=== PATIENT | female | born 1925 | race Caucasian/White ===

== ENCOUNTER 2016-12-14 09:35 | Inpatient (IN) | payer MEDICARE, OTHER ==
[~2016-12-14] VITALS: Ht 165.1 cm; Wt 55.0 kg
[2016-12-14] VITALS (8 sets, daily range): BP systolic 129–162; BP diastolic 57–72; PULSE 71–85; RESP 16–20; TEMP 96.5; Ht 165.1 cm; Wt 55.0 kg
[2016-12-14 10:59] LABS: HEMATOCRIT 21.9 % (37.0-47.0); HEMOGLOBIN 7.2 g/dl (12.0-16.0); MEAN CORPUSCULAR HEMOGLOBIN 26.2 pg (29.0-33.0); MEAN CORPUSCULAR HGB CONC 32.8 g/dl (32.0-37.0); MEAN CORPUSCULAR VOLUME 80.1 fl (82.0-101.0); MEAN PLATELET VOLUME 6.8 fl (7.4-10.4); PLATELET COUNT 622 10^3/UL (140-440); RED BLOOD COUNT 2.74 10^6/ul (4.20-5.40); RED CELL DISTRIBUTION WIDTH 24.9 % (11.5-14.5); UNCORRECTED WBC 19.5 10^3/ul (4.8-10.8); WHITE BLOOD COUNT 19.5 10^3/ul (4.8-10.8)
[2016-12-14 11:05] LABS: CONDITION 1; SUSPECT 1
[2016-12-14 11:06] LABS: POTASSIUM 4.3 mmol/L (3.5-5.1)
[2016-12-14 11:08] LABS: CREATININE 2.24 mg/dl (0.44-1.00)
[2016-12-14 11:09] LABS: URIC ACID 4.2 mg/dl (3.1-7.9)
[2016-12-14 11:10] LABS: CALCIUM 9.6 mg/dl (8.4-10.2)
[2016-12-14 11:16] LABS: INR 0.95; PROTIME 12.7 Sec (12.2-14.2)
[2016-12-14 11:17] LABS: PARTIAL THROMBOPLASTIN TIME 33.7 Sec (25.0-35.0)
[2016-12-14 11:20] LABS: TROPONIN-I 0.015 ng/ml (0.00-0.12)
[2016-12-14 11:27] LABS: BASOPHIL # 0.2 10^3/ul (0.0-0.1); EOSINOPHILS # 4.9 10^3/ul (0.0-0.5); LYMPHOCYTES # 2.9 10^3/ul (0.8-2.9); MONOCYTE # 1.6 10^3/ul (0.3-0.9); NEUTROPHIL # 9.4 10^3/ul (1.6-7.5); PLATELET ESTIMATE PLT APPEAR INCREASED
[2016-12-14] MEDS ORDERED: SODIUM CHLORIDE 0.9% 1L BAG IV* STA (12:20)
[2016-12-14] MEDS ORDERED: CEFTRIAXONE 1 GM/50 ML (PMX) 50 ML IVPB ONE (12:30)
--- NOTE | 2016-12-14 12:34 | RADRPT ---
PROCEDURE: XR Chest. CLINICAL INDICATION: Chest pain. TECHNIQUE: Single frontal view of the chest was obtained. COMPARISON: None. FINDINGS: The cardiac silhouette appears enlarged. There is calcification and unfolding of the thoracic aorta . Pulmonary vasculature appears normal. Minimal coarse markings in the medial lung bases bilateral ly. There is a retrocardiac hiatal hernia present. The costophrenic angles are well defined. Ther e are senescent changes in the axial skeleton. IMPRESSION: 1. Cardiomegaly and aortic atherosclerosis. 2. Bibasilar coarse markings which may represent subsegmental atelectasis. 3. Retrocardiac hiatal hernia. RPTAT: [facility] Physician Dk Date Time Electronically viewed and signed by Deepak Horta Physician on 12/14/2016 12:34 ART/
[2016-12-14 12:47] LABS: ADD UMIC YES; URINE BILIRUBIN (Dip) NEGATIVE (NEGATIVE); URINE BLOOD (Dip) 3+ (NEGATIVE); URINE COLOR DK. BROWN (YELLOW); URINE GLUCOSE (Dip) NEGATIVE (NEGATIVE); URINE KETONES (Dip) NEGATIVE (NEGATIVE); URINE LEUKOCYTE ESTERASE (Dip) 2+ (NEGATIVE); URINE NITRITE (Dip) NEGATIVE (NEGATIVE); URINE TOTAL PROTEIN (Dip) 1+ (NEGATIVE); URINE UROBILINOGEN (Dip) 0.2 E.U./dL (0.1-1.0)
[2016-12-14 13:08] LABS: BACTERIA,URINE FEW
[2016-12-14] MEDS ORDERED: ALLO300T2 PO (13:30)
[2016-12-14] MEDS ORDERED: MULTI PO (13:32)
[2016-12-14] MEDS ORDERED: CALC600T11 PO (13:33)
[2016-12-14] MEDS ORDERED: OMEP20CA16 PO (13:39)
[2016-12-14] MEDS ORDERED: CHOL100062 PO (13:39)
[2016-12-14] MEDS ORDERED: ASCO500C7 PO (13:40)
[2016-12-14] MEDS ORDERED: LIDO5OI35 TP (13:42)
[2016-12-14] MEDS ORDERED: SERT50TA PO (13:42)
[2016-12-14] MEDS ORDERED: MAGN400O4 PO (13:43)
[2016-12-14] MEDS ORDERED: SOD CHLORIDE 0.9% 1,000 ML IV SCH (13:46)
[2016-12-14] MEDS ORDERED: VERA360C6 PO (13:49)
[2016-12-14] MEDS ORDERED: SOD CHLORIDE 0.9% 250 ML IV ONE (13:49)
[2016-12-14] MEDS ORDERED: VALS40TA2 PO (13:49)
[2016-12-14] MEDS ORDERED: FURO20TA3 PO (13:50)
[2016-12-14] MEDS ORDERED: ONDANSETRON 4 MG INJ IV PRN (14:00)
[2016-12-14] MEDS ORDERED: ACETAMINOPHEN 325 MG TAB PO PRN ×2 (14:00→18:30)
--- NOTE | 2016-12-14 14:10 | ERA ---
ER Documentation Chief Complaint Date/Time DATE: 12/14/16 TIME: 14:07 Chief Complaint SWELLING BOTH LOWER AND UPPER EXTREMITIES; SOB HPI This is an 89-year-old female who was sent in by her primary care physician for evaluation of low hemoglobin, mild weakness and shortness of breath, and generalized malaise for the past 4 days. The patient is unable to give a history secondary to her clinical condition. History is obtained from the patient's caregiver was at bedside. ROS All systems reviewed and are negative except as per history of present illness. Medications Home Meds Reported Medications Furosemide* (Furosemide*) 20 Mg Tablet, 20 MG PO DAILY, #60 TAB 12/14/16 Verapamil Hcl* (Verelan*) 360 Mg Cap24h.pel, 360 MG PO DAILY, CAP 12/14/16 Valsartan* (Diovan*) 40 Mg Tablet, 40 MG PO DAILY, TAB HOLD FOR SBP EQUAL OR LESS THAN 110 12/14/16 Magnesium Hydroxide* (Milk Of Magnesia*) 400 Mg/5 Ml Oral.susp, 30 ML PO Q24H Y for CONSTIPATION, ML 12/14/16 Sertraline Hcl* (Zoloft*) 50 Mg Tablet, 50 MG PO DAILY, #30 TAB 12/14/16 Lidocaine (LIDOCAINE) 35.44 Gm Oint...g., 1 APPLIC TP BID, #1 TUB 12/14/16 Ascorbic Acid* (Vitamin C*) 500 Mg Capsule.sa, 500 MG PO DAILY, CAP 12/14/16 Omeprazole* (Omeprazole*) 20 Mg Capsule.dr, 20 MG PO DAILY, #30 CAP 12/14/16 Cholecalciferol* (Vitamin D3*) 1,000 Unit Tablet, 2000 UNIT PO DAILY, TAB 12/14/16 Calcium Carbonate* (Calcium Carbonate*) 600 MG Ca Tab, 600 MG PO TID, TAB 12/14/16 Multivitamins* (Theragran*) 1 Tab Tab, 1 TAB PO DAILY, TAB 12/14/16 Allopurinol* (Allopurinol*) 300 Mg Tablet, 300 MG PO DAILY, TAB 12/14/16 Allergies Allergies: Coded Allergies: No Known Allergy (Unverified , 12/14/16) PMhx/Soc History of Surgery: Yes (L knee) Anesthesia Reaction: No Hx Neurological Disorder: Yes (alzhimer's ) Hx Cardiac Disorders: Yes (htn) Hx Psychiatric Problems: Yes (depression) Hx Miscellaneous Medical Probl: Yes (gout) Hx Alcohol Use: No Hx Substance Use: No Hx Tobacco Use: No Smoking Status: Unknown if ever smoked Physical Exam Vitals Vital Signs Date Time Temp Pulse Resp B/P Pulse Ox O2 Delivery O2 Flow Rate FiO2 12/14/16 10:59 Nasal Cannula 2.0 12/14/16 10:59 Nasal Cannula 2 12/14/16 09:47 97.5 69 25 128/77 99 Physical Exam INITIAL VITAL SIGNS: Reviewed by me GENERAL: The patient is well developed and appropriate for usual state of health in no apparent distress HEENT: Dry mucous members, pupils equal, round, and reactive to light. EOMI. There is no scleral icterus. NECK: C-spine is soft and supple, there is no meningismus. There is no cervical lymphadenopathy. LUNGS: Clear to auscultation bilaterally. There are no rales, wheezes or rhonchi. HEART: Regular rate and rhythm, no murmurs, clicks, rubs or gallops. ABDOMEN: Soft, non-tender, non-distended. There are bowel sounds in all four quadrants. No rebound or guarding. EXTREMITIES: 1+ pitting edema in the bilateral lower extremities no focal swelling or erythema. NEUROLOGICAL: Patient is alert and oriented to person only SKIN: There is no apparent rash or petechiae. HEME/LYMPHATIC: There is no evidence of excessive bruising or lymphedema. PSYCHIATRIC: The patient does not appear anxious or depressed. Result Diagram: 12/14/16 1045 12/14/16 1045 Results 24 hrs Laboratory Tests Test 12/14/16 10:45 12/14/16 12:15 12/14/16 12:30 Activated Partial Thromboplast Time 33.7Sec Anion Gap 17 B-Type Natriuretic Peptide 1820PG/ML Band Neutrophils % 3.0% Basophils # 0.210^3/ul Basophils % 1.0% Blood Morphology Comment Blood Urea Nitrogen 72mg/dl Calcium Level 9.6mg/dl Carbon Dioxide Level 22mmol/L Chloride Level 108mmol/L Creatinine 2.24mg/dl Differential Comment MANUAL DIFF Eosinophils # 4.910^3/ul Eosinophils % 25.0% Glucose Level 111mg/dl Hematocrit 21.9% Hemoglobin 7.2g/dl INR International Normalized Ratio 0.95 Lymphocytes # 2.910^3/ul Lymphocytes % 15.0% Mean Corpuscular Hemoglobin 26.2pg Mean Corpuscular Hemoglobin Concent 32.8g/dl Mean Corpuscular Volume 80.1fl Mean Platelet Volume 6.8fl Monocytes # 1.610^3/ul Monocytes % 8.0% Neutrophils # 9.410^3/ul Neutrophils % 48.0% Nucleated Red Blood Cells # 10^3/ul Nucleated Red Blood Cells % /100WBC Platelet Count 77002^3/UL Platelet Estimate PLT APPEAR INCREASED Potassium Level 4.3mmol/L Prothrombin Time 12.7Sec Prothrombin Time Ratio 1.0 Red Blood Count 2.7410^6/ul Red Cell Distribution Width 24.9% Sodium Level 143mmol/L Troponin I 0.015ng/ml Uric Acid 4.2mg/dl White Blood Count 19.510^3/ul Urine Bacteria FEW Urine Bilirubin NEGATIVE Urine Clarity CLOUDY Urine Color DK. BROWN Urine Epithelial Cells FEW Urine Glucose NEGATIVE% Urine Hemoglobin 3+ Urine Ketones NEGATIVE Urine Leukocyte Esterase 2+ Urine Microscopic RBC 2-5/HPF Urine Microscopic WBC >200/HPF Urine Nitrite NEGATIVE Urine Specific [place] 1.015 Urine Total Protein 1+ Urine Urobilinogen 0.2 E.U./dL Urine pH 6.0 Lactic Acid Level 0.8mmol/L Current Medications Medications (Trade) Dose Ordered Sig/Pratibha Route PRN Reason Start Time Stop Time Status Last Admin Dose Admin Sodium Chloride 1710 ml 1,710 ml BOLUS OVER 2 HOURS STAT IV* 12/14/16 12:20 12/14/16 12:23 DC 12/14/16 12:46 Ceftriaxone Sodium 50 ml @ 100 mls/hr ONCE ONCE IVPB 12/14/16 12:30 12/14/16 12:59 DC 12/14/16 12:46 Sodium Chloride (NS) 1,000 ml @ 80 mls/hr [id number] IV 12/14/16 13:46 12/15/16 02:15 Ondansetron HCl (Zofran Inj) 4 mg ER BRIDGE PRN IV NAUSEA AND/OR VOMITING 12/14/16 14:00 12/15/16 13:59 Acetaminophen 650 mg 650 mg ER BRIDGE PRN PO MILD PAIN/FEVER 12/14/16 14:00 12/15/16 13:59 Sodium Chloride (NS) 250 ml @ 0 mls/hr Q0M ONCE IV 12/14/16 13:49 12/14/16 13:51 DC Procedures/MDM EKG: Rate/Rhythm: [Normal Sinus Rhythm] QRS, ST, T-waves: [No changes consistent w/ acute ischemia] Impression: [No evidence of ischemia or arrhythmia] Chest X-ray 1V Interpreted by me: Soft Tissue: No acute abnormalities Bones: No acute abnormalities Mediastinum/Cardiac Silhouette/Lungs: [No acute abnormalities] This 89-year-old female presents to the ER for evaluation of generalized weakness, and malaise. The patient did have a low hemoglobin patient's primary care physician's office. This patient does have a hemoglobin of 7.2, she was also found to have leukocytosis. The patient does have urinary tract infection given her symptoms she does meet sepsis criteria. The patient had blood and urine cultures drawn. Rocephin given. 30 cc/kg of IV normal saline given. I spoken to her primary care physician, Dr. Coley who would like this patient transfused and admitted. This patient was mildly tachycardic so she will be placed on the telemetry floor for evaluation of sepsis and shortness of breath. Critical Care: Excluding all billable procedures Time: 39 minutes Treatments/Evaluations: Close monitoring and treatment of unstable vital signs, cardiorespiratory, and neurologic status, while maintaining tight balance of fluid, respiratory, and cardiac interventions. Departure Diagnosis: Primary Impression: Sepsis Additional Impressions: Renal insufficiency Microcytic anemia Condition: Fair DAMASO ROJAS DO Dec 14, 2016 14:10
[2016-12-14] MEDS ORDERED: MAGNESIUM HYDROXIDE 30ML CUP PO PRN (16:30)
[2016-12-14] MEDS: DEXTROSE 5%-0.45% NACL 1,000 ML IV SCH (16:30)
--- NOTE | 2016-12-14 16:34 | HP ---
Date/Time of Note Date/Time of Note DATE: 12/14/16 TIME: 16:16 Assessment/Plan VTE Prophylaxis VTE Prophylaxis Intervention: SCD's Lines/Catheters IV Catheter Type (from Nrsg): Peripheral IV Assessment/Plan Chief Complaint/Hosp Course Urosepsis Dehydration Prerenal azothemia HTN gouty arthritis CAD/ [place] Mild cognitive Impairment Decubitus Stage I Problems: Assessment/Plan 89 year old female with HTN, Mild cognitive impairment, gouty arthritis, contracture found in boarding home to have sevee anemia, dehydration and pre- renal azothemia with urosepsis. 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, and urosepis with dehydration PMH/Family/Social Past Medical History Medical History: congestive heart failure, hypertension, urinary tract infection Past Surgical History Past Surgical Hx: other (hys) Social History Alcohol Use: none Smoking Status: Unknown if ever smoked Drug Use: none Exam/Review of Systems Vital Signs Vitals Vital Signs Date Time Temp Pulse Resp B/P Pulse Ox O2 Delivery O2 Flow Rate FiO2 12/14/16 15:28 98.4 81 20 162/72 96 12/14/16 15:15 Nasal Cannula 2.0 Exam Constitutional: alert, frail Psych: No anxiety, No confusion, No depression, No nl mood/affect, No no complaints, No other, No suicidal Head: atraumatic, normocephalic Eyes: nl conjunctiva Respiratory: clear to auscultation Gastrointestinal: soft Musculoskeletal: muscle weakness, swelling Skin: nl turgor, other Labs Result Diagram: 12/14/16 1045 12/14/16 1045 Medications Medications Current Medications Sodium Chloride (NS) 1,000 ml @ 80 mls/hr [id number] IV ; Start 12/14/16 at 13:46 ; Stop 12/15/16 at 02:15 JANNETTE LAZCANO MD Dec 14, 2016 16:26
[2016-12-14 17:40] LABS: CK-MB 4.84 ng/ml (0.0-2.4)
[2016-12-14 17:43] LABS: TROPONIN-I 0.016 ng/ml (0.00-0.12)
[2016-12-14] MEDS: CALCIUM CARBONATE 1.25 GM TAB PO SCH ×2 (18:34→21:47)
[2016-12-14] MEDS: traMADol 50 MG TAB PO PRN (18:34)
[2016-12-14 23:19] LABS: CK-MB 4.23 ng/ml (0.0-2.4)
[2016-12-14 23:23] LABS: TROPONIN-I 0.017 ng/ml (0.00-0.12)
[2016-12-15] VITALS (12 sets, daily range): BP systolic 90–139; BP diastolic 51–65; PULSE 77–92; RESP 18–22
[2016-12-15] MEDS: PANTOPRAZOLE (EC) 40 MG TAB PO SCH (05:34)
[2016-12-15] MEDS: FUROSEMIDE 20 MG TAB PO SCH (05:34)
[2016-12-15] MEDS: DEXTROSE 5%-0.45% NACL 1,000 ML IV SCH ×3 (06:48→21:06)
[2016-12-15] MEDS: VERAPAMIL (SR) 180 MG TAB PO SCH (08:10)
[2016-12-15] MEDS: VALSARTAN 80 MG TAB PO SCH (08:11)
[2016-12-15] MEDS: SERTRALINE 50 MG TAB PO SCH (08:12)
[2016-12-15] MEDS: CALCIUM CARBONATE 1.25 GM TAB PO SCH ×3 (08:12→20:51)
[2016-12-15] MEDS: MULTIVITAMINS THERAPEUTIC TAB PO SCH (08:12)
[2016-12-15] MEDS: ALLOPURINOL 300 MG TAB PO SCH (08:12)
[2016-12-15] MEDS: CHOLECALCIFEROL 1,000 UNIT TAB PO SCH (08:12)
[2016-12-15] MEDS: ASCORBIC ACID 500 MG TAB PO SCH (08:12)
[2016-12-15] MEDS ORDERED: NON-FORMULARY/PATIENT OWN MED (Omeprazole* 20 MG) PO SCH (09:00)
[2016-12-15] MEDS ORDERED: VERAPAMIL 40 MG TAB PO ONE (09:00)
--- NOTE | 2016-12-15 13:57 | PN ---
Date/Time of Note Date/Time of Note DATE: 12/15/16 TIME: 13:47 Assessment/Plan VTE Prophylaxis VTE Prophylaxis Intervention: SCD's Lines/Catheters IV [facility]ter [facility] (from [facility]): Peripheral IV Urinary Cath still in place: No Assessment/Plan Chief Complaint/Hosp Course Urosepsis Dehydration Prerenal azothemia HTN gouty arthritis CAD/ [place] Mild cognitive Impairment Decubitus Stage I Problems: Subjective 24 Hr Interval Summary Free Text/Dictation 89year old female HTN, Gouty arthritis, MCI, decubitus stage I,Aortic Sclerosis , Diastolic Dysfunction grade II, contractures present with urosepis, dehyration and with anemia. Patient was hydrated and trasfused 2 Units PRBC. Urine shows gram + cocci and gram Negative with pending sensitivities Constitutional: chills, diaphoresis, disoriented, febrile, improved (Better skin turgor), no complaints, other, poor po, requiring IVF, requiring O2 Exam/Review of Systems Vital Signs Vitals Vital Signs Date Time Temp Pulse Resp B/P Pulse Ox O2 Delivery O2 Flow Rate FiO2 12/15/16 13:16 2.0 12/15/16 12:14 86 12/15/16 11:17 98.0 18 97/52 97 12/15/16 08:00 Nasal Cannula Intake and Output 12/14/16 12/14/16 12/15/16 15:00 23:00 07:00 Intake Total 1400 ml Balance 1400 ml Results Result Diagram: 12/14/16 1045 12/14/16 1045 Results 24 hrs Laboratory Tests Test 12/14/16 14:25 12/14/16 15:59 12/14/16 16:50 12/14/16 22:48 Lactic Acid Level 0.7 0.6 Bedside Glucose 98 Creatine Kinase 23 26 Creatine Kinase Index 21.0 16.3 Creatinine Kinase MB (Mass) 4.84 H 4.23 H Troponin I 0.016 0.017 Medications Medications Current Medications Dextrose/Sodium Chloride (D5-1/2ns) 1,000 ml @ 70 mls/hr [id number] IV Last administered on 12/14/16 16:30; Admin Dose 70 MLS/HR; Start 12/14/16 at 16:30 Allopurinol (Zyloprim) 300 mg DAILY PO Last administered on 12/15/16 08:12; Admin Dose 300 MG; Start 12/15/16 at 09:00 Ascorbic Acid (Vitamin C) 500 mg DAILY PO Last administered on 12/15/16 08:12 ; Admin Dose 500 MG; Start 12/15/16 at 09:00 Cholecalciferol (Vitamin D) 2,000 unit DAILY PO Last administered on 12/15/16 08:12; Admin Dose 2,000 UNIT; Start 12/15/16 at 09:00 Furosemide (Lasix) 20 mg DAILY@06 PO Last administered on 12/15/16 05:34; Admin Dose 20 MG; Start 12/15/16 at 06:00 Magnesium Hydroxide (Milk Of Mag) 30 ml Q24H PRN PO CONSTIPATION; Start at 16:30 Multivitamins Therapeutic (Theragran) 1 tab DAILY PO Last administered on 08:12; Admin Dose 1 TAB; Start 12/15/16 at 09:00 Sertraline HCl (Zoloft) 50 mg DAILY PO Last administered on 12/15/16 08:12; Admin Dose 50 MG; Start 12/15/16 at 09:00 Valsartan (Diovan) 40 mg DAILY PO Last administered on 12/15/16 08:11; Admin Dose 40 MG; Start 12/15/16 at 09:00 Calcium Carbonate (Oyster Shell Calcium) 1.25 gm TID PO Last administered on 12:04; Admin Dose 1.25 GM; Start 12/14/16 at 17:00 Pantoprazole (Protonix Tab) 40 mg DAILY@06 PO Last administered on 12/15/16 05 :34; Admin Dose 40 MG; Start 12/15/16 at 06:00 Verapamil HCl (Isoptin Sr) 180 mg DAILY PO Last administered on 12/15/16 08:10 ; Admin Dose 180 MG; Start 12/15/16 at 09:00 Influenza Virus Vaccine (Fluzone) 0.5 ml ONCE ONCE IM* ; Start 12/17/16 at 09:00 ; Stop 12/17/16 at 09:01 Tramadol HCl (Ultram) 50 mg Q12H PRN PO PAIN LEVEL 6-10 Last administered on 18:34; Admin Dose 50 MG; Start 1/21/17 at 18:30 Acetaminophen (Tylenol Tab) 650 mg Q6H PRN PO PAIN AND OR ELEVATED TEMP; Start 12/14/16 at 18:30 JANNETTE LAZCANO MD Dec 15, 2016 13:57
[2016-12-16] VITALS (13 sets, daily range): BP systolic 72–112; BP diastolic 38–55; PULSE 71–108; RESP 16–21
[2016-12-16] MEDS: traMADol 50 MG TAB PO PRN (03:53)
[2016-12-16] MEDS: PANTOPRAZOLE (EC) 40 MG TAB PO SCH (05:52)
[2016-12-16] MEDS: FUROSEMIDE 20 MG TAB PO SCH (05:56)
[2016-12-16 06:43] LABS: BASOPHILS % 0.2 % (0.0-2.0); EOSINOPHILS # 1.7 10^3/ul (0.0-0.5); EOSINOPHILS % 9.9 % (0.0-7.0); HEMATOCRIT 25.8 % (37.0-47.0); HEMOGLOBIN 8.6 g/dl (12.0-16.0); LYMPHOCYTES # 1.6 10^3/ul (0.8-2.9); LYMPHOCYTES % 9.4 % (15.0-51.0); MEAN CORPUSCULAR HEMOGLOBIN 27.9 pg (29.0-33.0); MEAN CORPUSCULAR HGB CONC 33.5 g/dl (32.0-37.0); MEAN CORPUSCULAR VOLUME 83.3 fl (82.0-101.0); MEAN PLATELET VOLUME 7.1 fl (7.4-10.4); MONOCYTE # 1.9 10^3/ul (0.3-0.9); MONOCYTES % 10.9 % (0.0-11.0); NEUTROPHIL # 11.8 10^3/ul (1.6-7.5); NEUTROPHILS % 69.6 % (39.0-77.0); PLATELET COUNT 423 10^3/UL (140-440); RED CELL DISTRIBUTION WIDTH 21.6 % (11.5-14.5)
[2016-12-16 06:52] LABS: CONDITION 1; LH ANALYZER COMMENTS 1; SUSPECT 1
[2016-12-16 07:06] LABS: CALCIUM 8.5 mg/dl (8.4-10.2); CREATININE 2.08 mg/dl (0.44-1.00)
[2016-12-16] MEDS: ALLOPURINOL 300 MG TAB PO SCH (08:50)
[2016-12-16] MEDS: CALCIUM CARBONATE 1.25 GM TAB PO SCH ×3 (08:50→21:00)
[2016-12-16] MEDS: SERTRALINE 50 MG TAB PO SCH (08:50)
[2016-12-16] MEDS: CHOLECALCIFEROL 1,000 UNIT TAB PO SCH (08:51)
[2016-12-16] MEDS: VALSARTAN 80 MG TAB PO SCH (08:51)
[2016-12-16] MEDS: VERAPAMIL (SR) 180 MG TAB PO SCH (08:52)
[2016-12-16] MEDS: MULTIVITAMINS THERAPEUTIC TAB PO SCH (08:53)
[2016-12-16] MEDS: ASCORBIC ACID 500 MG TAB PO SCH (08:53)
[2016-12-16] MEDS ORDERED: VANCOMYCIN IV PER PHARMACY XX SCH (10:30)
[2016-12-16] MEDS ORDERED: VANCOMYCIN 1 GM in NS 250 ML IVPB SCH (10:30)
[2016-12-16] MEDS: DEXTROSE 5%-0.45% NACL 1,000 ML IV SCH (10:55)
[2016-12-16 11:58] LABS: LH ANALYZER COMMENTS 1
[2016-12-16] MEDS: LEVOFLOXACIN 250MG/D5W (PMX) 50 ML IVPB SCH (12:28)
[2016-12-16] MEDS: MUPIROCIN 2% 22 GM OINT TOP SCH (22:02)
[2016-12-17] VITALS (12 sets, daily range): BP systolic 96–131; BP diastolic 50–62; PULSE 82–98; RESP 18–21
[2016-12-17] MEDS: PANTOPRAZOLE (EC) 40 MG TAB PO SCH (06:21)
[2016-12-17] MEDS: FUROSEMIDE 20 MG TAB PO SCH (06:21)
[2016-12-17 07:47] LABS: CREATININE 2.19 mg/dl (0.44-1.00)
[2016-12-17] MEDS ORDERED: INFLUENZA VIRUS VACCINE 0.5 ML SYG IM* ONE (09:00)
[2016-12-17] MEDS: ASCORBIC ACID 500 MG TAB PO SCH (10:44)
[2016-12-17] MEDS: SERTRALINE 50 MG TAB PO SCH (10:46)
[2016-12-17] MEDS: MULTIVITAMINS THERAPEUTIC TAB PO SCH (10:46)
[2016-12-17] MEDS: VALSARTAN 80 MG TAB PO SCH (10:47)
[2016-12-17] MEDS: CALCIUM CARBONATE 1.25 GM TAB PO SCH ×3 (10:47→21:48)
[2016-12-17] MEDS: DEXTROSE 5%-0.45% NACL 1,000 ML IV SCH (10:53)
[2016-12-17] MEDS: MUPIROCIN 2% 22 GM OINT TOP SCH ×2 (10:53→21:49)
[2016-12-17] MEDS: CHOLECALCIFEROL 1,000 UNIT TAB PO SCH (10:53)
[2016-12-17] MEDS: ALLOPURINOL 300 MG TAB PO SCH (10:54)
--- NOTE | 2016-12-17 14:50 | PN ---
Date/Time of Note Date/Time of Note DATE: 12/16/16 TIME: 17:11 Assessment/Plan VTE Prophylaxis VTE Prophylaxis Intervention: SCD's Lines/Catheters IV [facility] Type (from [facility]): Peripheral IV Urinary Cath still in place: No Assessment/Plan Chief Complaint/Hosp Course Urosepsis Dehydration Prerenal azothemia HTN gouty arthritis CAD/ [place] Mild cognitive Impairment Decubitus Stage I Problems: Subjective 24 Hr Interval Summary Free Text/Dictation Continue to be hydrated. MRSA and gram Neg. Receiving Vancomycin and Levaquin , Bun? Creat. improving Exam/Review of Systems Vital Signs Vitals Vital Signs Date Time Temp Pulse Resp B/P Pulse Ox O2 Delivery O2 Flow Rate FiO2 12/16/16 16:36 71 12/16/16 16:31 99.0 21 102/52 95 12/16/16 08:00 Nasal Cannula 2.0 Intake and Output 12/15/16 12/15/16 12/16/16 15:00 23:00 07:00 Intake Total 640 ml 900 ml Balance 640 ml 900 ml Results Result Diagram: 12/16/16 0520 12/16/16 0520 Results 24 hrs Laboratory Tests Test 12/16/16 05:20 Anion Gap 15 Basophils # 0.0 Basophils % 0.2 Blood Morphology Comment Blood Urea Nitrogen 61 H Calcium Level 8.5 Carbon Dioxide Level 19 L Chloride Level 106 Creatinine 2.08 H Eosinophils # 1.7 H Eosinophils % 9.9 H Glucose Level 106 Hematocrit 25.8 L Hemoglobin 8.6 L Lymphocytes # 1.6 Lymphocytes % 9.4 L Mean Corpuscular Hemoglobin 27.9 L Mean Corpuscular Hemoglobin Concent 33.5 Mean Corpuscular Volume 83.3 Mean Platelet Volume 7.1 L Monocytes # 1.9 H Monocytes % 10.9 Neutrophils # 11.8 H Neutrophils % 69.6 Nucleated Red Blood Cells # 0.0 Nucleated Red Blood Cells % 0.0 Platelet Count 423 # Potassium Level 4.0 Red Blood Count 3.10 L Red Cell Distribution Width 21.6 H Sodium Level 136 White Blood Count 17.0 H Medications Medications Current Medications Dextrose/Sodium Chloride (D5-1/2ns) 1,000 ml @ 50 mls/hr Q20H IV Last administered on 12/16/16t 10:55; Admin Dose 50 MLS/HR; Start 12/14/16 at 16:30 Allopurinol (Zyloprim) 300 mg DAILY PO Last administered on 12/16/16 08:50; Admin Dose 300 MG; Start 12/15/16 at 09:00 Ascorbic Acid (Vitamin C) 500 mg DAILY PO Last administered on 12/16/16 08:53 ; Admin Dose 500 MG; Start 12/15/16 at 09:00 Cholecalciferol (Vitamin D) 2,000 unit DAILY PO Last administered on 12/16/16 08:51; Admin Dose 2,000 UNIT; Start 12/15/16 at 09:00 Furosemide (Lasix) 20 mg DAILY@06 PO Last administered on 12/16/16 05:56; Admin Dose 20 MG; Start 12/15/16 at 06:00 Magnesium Hydroxide (Milk Of Mag) 30 ml Q24H PRN PO CONSTIPATION; Start at 16:30 Multivitamins Therapeutic (Theragran) 1 tab DAILY PO Last administered on 08:12; Admin Dose 1 TAB; Start 12/15/16 at 09:00 Sertraline HCl (Zoloft) 50 mg DAILY PO Last administered on 12/16/16 08:50; Admin Dose 50 MG; Start 12/15/16 at 09:00 Valsartan (Diovan) 40 mg DAILY PO Last administered on 12/16/16 08:51; Admin Dose 40 MG; Start 12/15/16 at 09:00 Calcium Carbonate (Oyster Shell Calcium) 1.25 gm TID PO Last administered on 08:50; Admin Dose 1.25 GM; Start 12/14/16 at 17:00 Pantoprazole (Protonix Tab) 40 mg DAILY@06 PO Last administered on 12/16/16 05 :52; Admin Dose 40 MG; Start 12/15/16 at 06:00 Verapamil HCl (Isoptin Sr) 180 mg DAILY PO Last administered on 12/16/16 08:52 ; Admin Dose 180 MG; Start 12/15/16 at 09:00 Influenza Virus Vaccine (Fluzone) 0.5 ml ONCE ONCE IM* ; Start 12/17/16 at 09:00 ; Stop 12/17/16 at 09:01 Tramadol HCl (Ultram) 50 mg Q12H PRN PO PAIN LEVEL 6-10 Last administered on 03:53; Admin Dose 50 MG; Start 12/14/16 at 18:30 Acetaminophen 650 mg 650 mg Q6H PRN PO PAIN AND OR ELEVATED TEMP; Start at 18:30 Levofloxacin/ Dextrose (Levaquin 250 Mg/ D5W 50 ml (Pmx)) 50 ml @ 50 mls/hr Q48H IVPB Last administered on 12/16/16 12:28; Admin Dose 50 MLS/HR; Start at 11:30 Vancomycin HCl (Vanco Iv Per Pharmacy) PER PHARMACY DOSING NOTE XX ; Start 12/16 at 10:30 Mupirocin 1 applic 1 applic BID TOP ; Start 12/16/16 at 21:00 Vancomycin HCl/ Sodium Chloride (Vancocin/NS) 150 ml @ 75 mls/hr Q36H IVPB ; Start 12/17/16 at 23:00 JANNETTE LAZCANO MD Dec 16, 2016 17:24
--- NOTE | 2016-12-17 14:57 | PN ---
Date/Time of Note Date/Time of Note DATE: 12/17/16 TIME: 14:51 Assessment/Plan VTE Prophylaxis VTE Prophylaxis Intervention: SCD's Lines/Catheters IV [facility] Type (from [facility]): Peripheral IV Urinary Cath still in place: No Assessment/Plan Chief Complaint/Hosp Course Urosepsis Dehydration Prerenal azothemia HTN gouty arthritis CAD/ [place] Mild cognitive Impairment Decubitus Stage I Problems: Subjective 24 Hr Interval Summary Free Text/Dictation 89 year old female HTN, Aortic Sclerosis, Mild cognitive impairment, Gouty arthritis, sacral decubitus stage I, admitted with anemia, dehydration and urosepsis showing MRSA and psuedomonas on vancomycin and Levaquin. She remains afebrile and being hydrated Constitutional: requiring IVF Eyes: no complaints Musculoskeletal: bone/joint pain Skin: bruising, erythema, laceration, no complaints, other, pruritis, rash, skin lesions Exam/Review of Systems Vital Signs Vitals Vital Signs Date Time Temp Pulse Resp B/P Pulse Ox O2 Delivery O2 Flow Rate FiO2 12/17/16 12:12 91 12/17/16 12:01 99.0 21 118/58 99 12/16/16 21:23 2.0 12/16/16 20:00 Nasal Cannula Intake and Output 12/16/16 12/16/16 12/17/16 15:00 23:00 07:00 Intake Total 1500 ml 200 ml Balance 1500 ml 200 ml Results Result Diagram: 12/16/16 0520 12/17/16 0700 Results 24 hrs Laboratory Tests Test 12/17/16 07:00 Blood Urea Nitrogen 61 H Creatinine 2.19 H Medications Medications Current Medications Dextrose/Sodium Chloride (D5-1/2ns) 1,000 ml @ 50 mls/hr Q20H IV Last administered on 12/17/16 10:53; Admin Dose 50 MLS/HR; Start 12/14/16 at 16:30 Allopurinol (Zyloprim) 300 mg DAILY PO Last administered on 12/17/16 10:54; Admin Dose 300 MG; Start 12/15/16 at 09:00 Ascorbic Acid (Vitamin C) 500 mg DAILY PO Last administered on 12/17/16 10:44 ; Admin Dose 500 MG; Start 12/15/16 at 09:00 Cholecalciferol (Vitamin D) 2,000 unit DAILY PO Last administered on 12/17/16 10:53; Admin Dose 2,000 UNIT; Start 12/15/16 at 09:00 Furosemide (Lasix) 20 mg DAILY@06 PO Last administered on 12/17/16 06:21; Admin Dose 20 MG; Start 12/15/16 at 06:00 Magnesium Hydroxide (Milk Of Mag) 30 ml Q24H PRN PO CONSTIPATION; Start at 16:30 Multivitamins Therapeutic (Theragran) 1 tab DAILY PO Last administered on 10:46; Admin Dose 1 TAB; Start 12/15/16 at 09:00 Sertraline HCl (Zoloft) 50 mg DAILY PO Last administered on 12/17/16 10:46; Admin Dose 50 MG; Start 12/15/16 at 09:00 Valsartan (Diovan) 40 mg DAILY PO Last administered on 12/17/16 10:47; Admin Dose 40 MG; Start 12/15/16 at 09:00 Calcium Carbonate (Oyster Shell Calcium) 1.25 gm TID PO Last administered on 10:47; Admin Dose 1.25 GM; Start 12/14/16 at 17:00 Pantoprazole (Protonix Tab) 40 mg DAILY@06 PO Last administered on 12/17/16 06 :21; Admin Dose 40 MG; Start 12/15/16 at 06:00 Verapamil HCl (Isoptin Sr) 180 mg DAILY PO Last administered on 12/16/16 08:52 ; Admin Dose 180 MG; Start 12/15/16 at 09:00 Tramadol HCl (Ultram) 50 mg Q12H PRN PO PAIN LEVEL 6-10 Last administered on 03:53; Admin Dose 50 MG; Start 12/14/16 at 18:30 Acetaminophen 650 mg 650 mg Q6H PRN PO PAIN AND OR ELEVATED TEMP; Start at 18:30 Levofloxacin/ Dextrose (Levaquin 250 Mg/ D5W 50 ml (Pmx)) 50 ml @ 50 mls/hr Q48H IVPB Last administered on 12/16/16 12:28; Admin Dose 50 MLS/HR; Start at 11:30 Vancomycin HCl (Vanco Iv Per Pharmacy) PER PHARMACY DOSING NOTE XX ; Start 12/16 at 10:30 Mupirocin 1 applic 1 applic BID TOP Last administered on 12/17/16t 10:53; Admin Dose 1 APPLIC; Start 12/16/16 at 21:00 Vancomycin HCl/ Sodium Chloride (Vancocin/NS) 150 ml @ 75 mls/hr Q36H IVPB ; Start 12/17/16 at 23:00 JANNETTE LAZCANO MD Dec 17, 2016 14:57
[2016-12-17] MEDS: traMADol 50 MG TAB PO PRN (15:38)
[2016-12-17] MEDS: VERAPAMIL 80 MG TAB PO SCH ×2 (15:52→21:49)
[2016-12-17] MEDS: INDOMETHACIN 25 MG PO SCH ×2 (18:23→21:48)
[2016-12-18] VITALS (12 sets, daily range): BP systolic 99–111; BP diastolic 51–59; PULSE 50–71; RESP 18–22
[2016-12-18] MEDS: VANCOMYCIN 750 MG in SOD CHLORIDE 0.9% 150 ML IVPB SCH (02:25)
[2016-12-18] MEDS: FUROSEMIDE 20 MG TAB PO SCH (06:03)
[2016-12-18] MEDS: PANTOPRAZOLE (EC) 40 MG TAB PO SCH (06:03)
[2016-12-18] MEDS: CHOLECALCIFEROL 1,000 UNIT TAB PO SCH (08:11)
[2016-12-18] MEDS: VALSARTAN 80 MG TAB PO SCH (08:12)
[2016-12-18] MEDS: ALLOPURINOL 300 MG TAB PO SCH (08:13)
[2016-12-18] MEDS: MULTIVITAMINS THERAPEUTIC TAB PO SCH (08:13)
[2016-12-18] MEDS: VERAPAMIL 80 MG TAB PO SCH ×2 (08:13→20:29)
[2016-12-18] MEDS: ASCORBIC ACID 500 MG TAB PO SCH (08:13)
[2016-12-18] MEDS: INDOMETHACIN 25 MG PO SCH ×2 (08:13→20:26)
[2016-12-18] MEDS: CALCIUM CARBONATE 1.25 GM TAB PO SCH ×4 (08:13→20:26)
[2016-12-18] MEDS: SERTRALINE 50 MG TAB PO SCH (08:13)
[2016-12-18] MEDS: MUPIROCIN 2% 22 GM OINT TOP SCH ×2 (08:25→20:29)
[2016-12-18] MEDS: DEXTROSE 5%-0.45% NACL 1,000 ML IV SCH (09:06)
[2016-12-18] MEDS: LEVOFLOXACIN 250MG/D5W (PMX) 50 ML IVPB SCH (11:44)
[2016-12-18 14:51] LABS: MEAN CORPUSCULAR HEMOGLOBIN 27.4 pg (29.0-33.0); MEAN CORPUSCULAR VOLUME 85.5 fl (82.0-101.0); MEAN PLATELET VOLUME 6.6 fl (7.4-10.4); PLATELET COUNT 395 10^3/UL (140-440); RED BLOOD COUNT 3.28 10^6/ul (4.20-5.40); RED CELL DISTRIBUTION WIDTH 24.9 % (11.5-14.5); UNCORRECTED WBC 16.2 10^3/ul (4.8-10.8); WHITE BLOOD COUNT 16.2 10^3/ul (4.8-10.8)
[2016-12-18 14:56] LABS: CONDITION 1; LH ANALYZER COMMENTS 1
[2016-12-18 15:02] LABS: ALBUMIN 2.1 g/dl (3.3-4.9)
[2016-12-18 15:04] LABS: CREATININE 2.23 mg/dl (0.44-1.00)
[2016-12-18 15:05] LABS: ALBUMIN/GLOBULIN RATIO 0.56; TOTAL PROTEIN 5.8 g/dl (6.1-8.1)
[2016-12-18 15:06] LABS: CALCIUM 7.9 mg/dl (8.4-10.2)
[2016-12-18 15:26] LABS: BASOPHIL # 0.2 10^3/ul (0.0-0.1); EOSINOPHILS # 3.7 10^3/ul (0.0-0.5); LYMPHOCYTES # 1.1 10^3/ul (0.8-2.9); MONOCYTE # 1.1 10^3/ul (0.3-0.9)
[2016-12-18 15:27] LABS: ANISOCYTOSIS 2+; HYPOCHROMASIA 1+
[2016-12-18 15:28] LABS: PLATELET ESTIMATE PLT APPEAR ADEQUATE
--- NOTE | 2016-12-18 15:44 | PN ---
Date/Time of Note Date/Time of Note DATE: 12/18/16 TIME: 15:38 Assessment/Plan VTE Prophylaxis VTE Prophylaxis Intervention: SCD's Lines/Catheters IV Catheter Type (from Nrs): Peripheral IV Urinary Cath still in place: No Assessment/Plan Chief Complaint/Hosp Course Urosepsis Dehydration Prerenal azothemia HTN gouty arthritis CAD/ [place] Mild cognitive Impairment Decubitus Stage I Problems: Subjective 24 Hr Interval Summary Free Text/Dictation Elder female with MRSA and Psuedomonas responding to Vanc/Levoquin. Asked agileana León to see patient. Poor PO intake. Speech therapist feel dangerous to do video Esophagram due patient not mentally sound. Indocin remove pain adn gouty arthritis. Remain afebrile. adequate I& O Constitutional: improved Exam/Review of Systems Vital Signs Vitals Vital Signs Date Time Temp Pulse Resp B/P Pulse Ox O2 Delivery O2 Flow Rate FiO2 12/18/16 13:08 2.0 12/18/16 12:38 65 12/18/16 12:00 97.6 18 102/58 99 12/17/16 20:00 Nasal Cannula Intake and Output 12/17/16 12/17/16 12/18/16 15:00 23:00 07:00 Intake Total 520 ml 200 ml Balance 520 ml 200 ml Results Result Diagram: 12/18/16 1438 12/18/16 1438 Results 24 hrs Laboratory Tests Test 12/18/16 14:38 Alanine Aminotransferase (ALT/SGPT) 29 Albumin 2.1 L Albumin/Globulin Ratio 0.56 Alkaline Phosphatase 56 Anion Gap 15 Anisocytosis 2+ Aspartate Amino Transf (AST/SGOT) 18 Basophils # 0.2 H Basophils % 1.0 Blood Morphology Comment Blood Urea Nitrogen 59 H Calcium Level 7.9 L Carbon Dioxide Level 19 L Chloride Level 103 Creatinine 2.23 H Direct Bilirubin 0.00 Eosinophils # 3.7 H Eosinophils % 23.0 H Globulin 3.70 H Glucose Level 91 Hematocrit 28.0 L Hemoglobin 9.0 L Hypochromasia 1+ Indirect Bilirubin 0.0 Lymphocytes # 1.1 Lymphocytes % 7.0 L Macrocytosis 2+ Mean Corpuscular Hemoglobin 27.4 L Mean Corpuscular Hemoglobin Concent 32.0 Mean Corpuscular Volume 85.5 Mean Platelet Volume 6.6 L Monocytes # 1.1 H Monocytes % 7.0 Neutrophils # 10.0 H Neutrophils % 62.0 Platelet Count 395 Platelet Estimate PLT APPEAR ADEQUATE Potassium Level 4.0 Red Blood Count 3.28 L Red Cell Distribution Width 24.9 H Sodium Level 133 L Total Bilirubin 0.0 L Total Protein 5.8 L White Blood Count 16.2 H Medications Medications Current Medications Dextrose/Sodium Chloride (D5-1/2ns) 1,000 ml @ 50 mls/hr Q20H IV Last administered on 12/17/16 10:53; Admin Dose 50 MLS/HR; Start 12/14/16 at 16:30 Allopurinol (Zyloprim) 300 mg DAILY PO Last administered on 12/18/16 08:13; Admin Dose 300 MG; Start 12/15/16 at 09:00 Ascorbic Acid (Vitamin C) 500 mg DAILY PO Last administered on 12/18/16 08:13 ; Admin Dose 500 MG; Start 12/15/16 at 09:00 Cholecalciferol (Vitamin D) 2,000 unit DAILY PO Last administered on 12/18/16 08:11; Admin Dose 2,000 UNIT; Start 12/15/16 at 09:00 Furosemide (Lasix) 20 mg DAILY@06 PO Last administered on 12/18/16 06:03; Admin Dose 20 MG; Start 12/15/16 at 06:00 Magnesium Hydroxide (Milk Of Mag) 30 ml Q24H PRN PO CONSTIPATION; Start at 16:30 Multivitamins Therapeutic (Theragran) 1 tab DAILY PO Last administered on 08:13; Admin Dose 1 TAB; Start 12/15/16 at 09:00 Sertraline HCl (Zoloft) 50 mg DAILY PO Last administered on 12/18/16 08:13; Admin Dose 50 MG; Start 12/15/16 at 09:00 Valsartan (Diovan) 40 mg DAILY PO Last administered on 12/18/16 08:12; Admin Dose 40 MG; Start 12/15/16 at 09:00 Calcium Carbonate (Oyster Shell Calcium) 1.25 gm TID PO Last administered on 08:13; Admin Dose 1.25 GM; Start 12/14/16 at 17:00 Pantoprazole (Protonix Tab) 40 mg DAILY@06 PO Last administered on 12/18/16 06 :03; Admin Dose 40 MG; Start 12/15/16 at 06:00 Tramadol HCl (Ultram) 50 mg Q12H PRN PO PAIN LEVEL 6-10 Last administered on 15:38; Admin Dose 50 MG; Start 12/14/16 at 18:30 Acetaminophen 650 mg 650 mg Q6H PRN PO PAIN AND OR ELEVATED TEMP; Start at 18:30 Levofloxacin/ Dextrose (Levaquin 250 Mg/ D5W 50 ml (Pmx)) 50 ml @ 50 mls/hr Q48H IVPB Last administered on 12/18/16 11:44; Admin Dose 50 MLS/HR; Start at 11:30 Vancomycin HCl (Vanco Iv Per Pharmacy) PER PHARMACY DOSING NOTE XX ; Start 12/16 at 10:30 Mupirocin 1 applic 1 applic BID TOP Last administered on 12/18/16 08:25; Admin Dose 1 APPLIC; Start 12/16/16 at 21:00 Vancomycin HCl/ Sodium Chloride (Vancocin/NS) 150 ml @ 75 mls/hr Q36H IVPB Last administered on 12/18/16 02:25; Admin Dose 75 MLS/HR; Start 12/17/16 at 23 :00 Verapamil HCl (Isoptin) 80 mg BID PO Last administered on 12/18/16 08:13; Admin Dose 80 MG; Start 12/17/16 at 15:00 Indomethacin (Indocin) 25 mg BID PO Last administered on 12/18/16 08:13; Admin Dose 25 MG; Start 12/17/16 at 16:00 JANNETTE LAZCANO MD Dec 18, 2016 15:44
--- NOTE | 2016-12-18 16:36 | CONS ---
DATE OF ADMISSION: 12/14/2016 DATE OF CONSULTATION: 12/18/2016 TYPE OF CONSULTATION: Infectious Disease. REASON FOR CONSULTATION: Antibiotic management. HISTORY OF PRESENT ILLNESS: Yue Arechiga is an 89-year-old female with a number of problems who co mes in with probable urosepsis and is being seen for antibiotic management. Her past problems inclu de: 1. Hypertension. 2. Gouty arthritis. 3. Coronary artery disease/HI. 4. Mild cognitive impairment. 5. Contractures. 6. Stage I decubitus ulcer. The patient was found to have severe anemia and probable urosepsis wit h dehydration. On admission, her white count was 19.5, H and H of 7.2 and 21.9, platelet count 622, 000. BUN and creatinine 72/2.24. Random glucose of 111. PAST MEDICAL HISTORY: Operations as outlined. PAST SURGICAL HISTORY: She had a hysterectomy. SOCIAL HISTORY: She does not smoke, drink or abuse drugs. ALLERGIES: NONE TO PENICILLIN, SULFA OR FOODS. MEDICATIONS: Per chart. REVIEW OF SYSTEMS: As per HPI. PHYSICAL EXAMINATION: GENERAL: The patient is a frail elderly appearing female who is awake, but somewhat confused, in no acute distress. VITAL SIGNS: Stable. She is afebrile. SKIN: Without generalized rash. HEENT: Within normal limits. NECK: Supple. LYMPH NODES: None palpable. CHEST: Decreased breath sounds at the bases. HEART: Without murmur or gallop. ABDOMEN: Soft, nontender, without organosplenomegaly or masses. EXTREMITIES: Without cyanosis, clubbing, or edema. RECTAL AND GENITAL: Deferred. NEUROLOGIC: No focal neurological abnormalities. LABORATORY DATA: Show that she has coag negative staph in her blood, 2 sets and urine is growing ou t Pseudomonas aeruginosa. The patient was started on vancomycin and Levaquin. Chest x-ray shows ca rdiomegaly, bibasilar coarse markings which may represent subsegmental atelectasis, retrocardiac hia orlin hernia. The pseudomonas is sensitive to Cipro. I am going to repeat blood cultures. If they a re positive, she may require a 2D echocardiogram. She may require that any now. She also has MRSA. I will be happy to follow this patient with Dr. Coley. Dictated By: BAHMAN LEE MD, JD/MARIEL Conf#: [id number] [facility]#: [id number]
[2016-12-19] VITALS (12 sets, daily range): BP systolic 89–122; BP diastolic 50–58; PULSE 61–73; RESP 20–21
[2016-12-19] MEDS: DEXTROSE 5%-0.45% NACL 1,000 ML IV SCH ×3 (01:13→20:17)
[2016-12-19] MEDS: PANTOPRAZOLE (EC) 40 MG TAB PO SCH (06:11)
[2016-12-19] MEDS: FUROSEMIDE 20 MG TAB PO SCH (06:11)
[2016-12-19] MEDS: MUPIROCIN 2% 22 GM OINT TOP SCH ×2 (08:50→20:20)
[2016-12-19] MEDS: ALLOPURINOL 300 MG TAB PO SCH (08:51)
[2016-12-19] MEDS: ASCORBIC ACID 500 MG TAB PO SCH (08:51)
[2016-12-19] MEDS: SERTRALINE 50 MG TAB PO SCH (08:51)
[2016-12-19] MEDS: INDOMETHACIN 25 MG PO SCH ×2 (08:51→20:18)
[2016-12-19] MEDS: MULTIVITAMINS THERAPEUTIC TAB PO SCH (08:51)
[2016-12-19] MEDS: VERAPAMIL 80 MG TAB PO SCH ×2 (08:51→20:21)
[2016-12-19] MEDS: CALCIUM CARBONATE 1.25 GM TAB PO SCH ×3 (08:51→20:18)
[2016-12-19] MEDS: VALSARTAN 80 MG TAB PO SCH (08:51)
[2016-12-19] MEDS: CHOLECALCIFEROL 1,000 UNIT TAB PO SCH (08:51)
[2016-12-19] MEDS: VANCOMYCIN 750 MG in SOD CHLORIDE 0.9% 150 ML IVPB SCH (14:09)
--- NOTE | 2016-12-19 14:12 | PN ---
DATE: 12/19/2016 SUBJECTIVE: No acute changes. 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 She is in no distre ss, awake, no fevers. WBC yesterday was 16.2. No labs today. MICROBIOLOGY: Blood culture on admission grew coagulase-negative staph. The urine culture grew Pse udomonas aeruginosa intermediately sensitive only to aztreonam. MRSA swab came back positive. ANTIMICROBIALS: 1. Vancomycin. 2. Levaquin. PHYSICAL EXAMINATION: GENERAL: This is a fragile, elderly woman who is awake, in no distress. HEENT: Head atraumatic, normocephalic. Sclerae anicteric. Buccal mucosa dry. NECK: Supple, trachea midline. CHEST: Rise symmetrical. Breath sounds clear, diminished to bases. HEART: S1, S2. ABDOMEN: Soft. Bowel tones present. EXTREMITIES: Without cyanosis. ASSESSMENT: 1. Sepsis secondary to urinary tract infection. 2. Pseudomonas aeruginosa urinary tract infection. 3. Coagulase-negative Staphylococcus bacteremia, possibly contaminant. 4. Methicillin-resistant Staphylococcus aureus nares colonization. 5. Dysphagia. 6. Gouty arthritis. PLAN: The patient remains stable on appropriate antimicrobials. No fevers. Pending repeat blood c ultures, we are going to repeat chest x-ray in a.m. Continue anti-aspiration measures. Dictated By: BRADLEY PRATER WOOL CLASSER for BAHMAN OSMAN/MARIEL Conf#: [id number] DID#: [id number]
--- NOTE | 2016-12-19 18:55 | PN ---
Date/Time of Note Date/Time of Note DATE: 12/19/16 TIME: 18:53 Assessment/Plan VTE Prophylaxis VTE Prophylaxis Intervention: SCD's Lines/Catheters [facility]from [facility]): Peripheral IV Urinary Cath still in place: No Assessment/Plan Chief Complaint/Hosp Course Urosepsis Dehydration Prerenal azothemia HTN gouty arthritis CAD/ [place] Mild cognitive Impairment Decubitus Stage I Problems: Subjective 24 Hr Interval Summary Free Text/Dictation Condition improving. Seen by ID on dual ABX. Diet advanced to Soft mechanical. Bp was low this am. will D/c Lasix and Valsartan Exam/Review of Systems Vital Signs Vitals Vital Signs Date Time Temp Pulse Resp B/P Pulse Ox O2 Delivery O2 Flow Rate FiO2 12/19/16 17:32 2.0 12/19/16 16:26 67 12/19/16 15:30 97.5 20 102/51 95 12/19/16 08:00 Nasal Cannula 12/19/16 01:44 28 Intake and Output 12/18/16 12/18/16 12/19/16 15:00 23:00 07:00 Intake Total 50 ml 790 ml 950 ml Balance 50 ml 790 ml 950 ml Results Result Diagram: 12/18/16 1438 12/18/16 1438 Results 24 hrs Laboratory Tests Test 12/19/16 10:30 Vancomycin Level Trough 12.4 Medications Medications Current Medications Dextrose/Sodium Chloride (D5-1/2ns) 1,000 ml @ 50 mls/hr Q20H IV Last administered on 12/19/16 01:13; Admin Dose 50 MLS/HR; Start 12/14/16 at 16:30 Allopurinol (Zyloprim) 300 mg DAILY PO Last administered on 12/19/16 08:51; Admin Dose 300 MG; Start 12/15/16 at 09:00 Ascorbic Acid (Vitamin C) 500 mg DAILY PO Last administered on 12/19/16 08:51 ; Admin Dose 500 MG; Start 12/15/16 at 09:00 Cholecalciferol (Vitamin D) 2,000 unit DAILY PO Last administered on 12/19/16 08:51; Admin Dose 2,000 UNIT; Start 12/15/16 at 09:00 Magnesium Hydroxide (Milk Of Mag) 30 ml Q24H PRN PO CONSTIPATION; Start at 16:30 Multivitamins Therapeutic (Theragran) 1 tab DAILY PO Last administered on 08:51; Admin Dose 1 TAB; Start 12/15/16 at 09:00 Sertraline HCl (Zoloft) 50 mg DAILY PO Last administered on 12/19/16 08:51; Admin Dose 50 MG; Start 12/15/16 at 09:00 Calcium Carbonate (Oyster Shell Calcium) 1.25 gm TID PO Last administered on 14:09; Admin Dose 1.25 GM; Start 12/14/16 at 17:00 Pantoprazole (Protonix Tab) 40 mg DAILY@06 PO Last administered on 12/19/16 06 :11; Admin Dose 40 MG; Start 12/15/16 at 06:00 Tramadol HCl (Ultram) 50 mg Q12H PRN PO PAIN LEVEL 6-10 Last administered on 15:38; Admin Dose 50 MG; Start 12/14/16 at 18:30 Acetaminophen 650 mg 650 mg Q6H PRN PO PAIN AND OR ELEVATED TEMP; Start at 18:30 Levofloxacin/ Dextrose (Levaquin 250 Mg/ D5W 50 ml (Pmx)) 50 ml @ 50 mls/hr Q48H IVPB Last administered on 12/18/16 11:44; Admin Dose 50 MLS/HR; Start at 11:30 Vancomycin HCl (Vanco Iv Per Pharmacy) PER PHARMACY DOSING NOTE XX ; Start 12/16 at 10:30 Mupirocin 1 applic 1 applic BID TOP Last administered on 12/19/16 08:50; Admin Dose 1 APPLIC; Start 12/16/16 at 21:00 Vancomycin HCl/ Sodium Chloride (Vancocin/NS) 150 ml @ 75 mls/hr Q36H IVPB Last administered on 12/19/16 14:09; Admin Dose 75 MLS/HR; Start 12/17/16 at 23 :00 Verapamil HCl (Isoptin) 80 mg BID PO Last administered on 12/19/16 08:51; Admin Dose 80 MG; Start 12/17/16 at 15:00 Indomethacin (Indocin) 25 mg BID PO Last administered on 12/19/16 08:51; Admin Dose 25 MG; Start 12/17/16 at 16:00 JANNETTE LAZCANO MD Dec 19, 2016 18:55
[2016-12-20] VITALS (12 sets, daily range): BP systolic 101–116; BP diastolic 51–64; PULSE 65–75; RESP 17–20
[2016-12-20] MEDS: PANTOPRAZOLE (EC) 40 MG TAB PO SCH (05:51)
[2016-12-20 07:06] LABS: HEMATOCRIT 27.1 % (37.0-47.0); HEMOGLOBIN 9.1 g/dl (12.0-16.0); MEAN CORPUSCULAR HEMOGLOBIN 28.6 pg (29.0-33.0); MEAN CORPUSCULAR HGB CONC 33.5 g/dl (32.0-37.0); MEAN CORPUSCULAR VOLUME 85.3 fl (82.0-101.0); MEAN PLATELET VOLUME 7.3 fl (7.4-10.4); PLATELET COUNT 421 10^3/UL (140-440); RED BLOOD COUNT 3.17 10^6/ul (4.20-5.40); RED CELL DISTRIBUTION WIDTH 23.9 % (11.5-14.5); UNCORRECTED WBC 15.7 10^3/ul (4.8-10.8); WHITE BLOOD COUNT 15.7 10^3/ul (4.8-10.8)
[2016-12-20 07:07] LABS: ALBUMIN 2.1 g/dl (3.3-4.9)
[2016-12-20 07:08] LABS: POTASSIUM 4.5 mmol/L (3.5-5.1)
[2016-12-20 07:10] LABS: ALBUMIN/GLOBULIN RATIO 0.56; CALCIUM 8.1 mg/dl (8.4-10.2); CREATININE 2.36 mg/dl (0.44-1.00); TOTAL PROTEIN 5.8 g/dl (6.1-8.1)
[2016-12-20 07:32] LABS: CONDITION 1; LH ANALYZER COMMENTS 1
[2016-12-20] MEDS: INDOMETHACIN 25 MG PO SCH ×2 (08:22→21:15)
[2016-12-20] MEDS: SERTRALINE 50 MG TAB PO SCH (08:22)
[2016-12-20] MEDS: VERAPAMIL 80 MG TAB PO SCH ×2 (08:23→21:16)
[2016-12-20] MEDS: MULTIVITAMINS THERAPEUTIC TAB PO SCH (08:23)
[2016-12-20] MEDS: CALCIUM CARBONATE 1.25 GM TAB PO SCH ×3 (08:23→21:15)
[2016-12-20] MEDS: CHOLECALCIFEROL 1,000 UNIT TAB PO SCH (08:23)
[2016-12-20] MEDS: ASCORBIC ACID 500 MG TAB PO SCH (08:23)
[2016-12-20] MEDS: ALLOPURINOL 300 MG TAB PO SCH (08:23)
[2016-12-20] MEDS: MUPIROCIN 2% 22 GM OINT TOP SCH ×2 (08:24→21:16)
[2016-12-20 11:55] LABS: EOSINOPHILS # 5.3 10^3/ul (0.0-0.5); LYMPHOCYTES # 1.3 10^3/ul (0.8-2.9); MONOCYTE # 0.2 10^3/ul (0.3-0.9); NEUTROPHIL # 8.9 10^3/ul (1.6-7.5)
[2016-12-20] MEDS: LEVOFLOXACIN 250MG/D5W (PMX) 50 ML IVPB SCH (12:04)
--- NOTE | 2016-12-20 13:23 | RADRPT ---
PROCEDURE: XR Chest. CLINICAL INDICATION: Shortness of breath. TECHNIQUE: Single frontal view. COMPARISON: 12/14/2016. FINDINGS: There is mild air space disease at the left lung base consistent with atelectasis or pneumonia, new when compared with the prior study. The lungs are otherwise clear. The heart is mildly enlarged. There is calcification in the aorta consistent with atherosclerosis. There is no pleural effusion. There is no pneumothorax. IMPRESSION: 1. New mild left basilar atelectasis or pneumonia. 2. Mild cardiomegaly. 3. Atherosclerosis. RPTAT: QQ .Dhaval Marc MD, MD Date Time Electronically viewed and signed by .Dhaval Marc MD, on 12/20/2016 13:23 .R/
--- NOTE | 2016-12-20 14:23 | PN ---
DATE: 12/20/2016 INFECTIOUS DISEASE PROGRESS NOTE SUBJECTIVE: The patient is lying comfortably in bed. No fevers. WBC today 15.7. No shift, no ban ds. BUN 61, creatinine 2.36. MICROBIOLOGY: Blood culture grew coagulase-negative staph species, susceptible to doxycycline, Levaq uin, vancomycin, rifampin, and Bactrim. Urine culture grew Pseudomonas aeruginosa, susceptible to L evaquin as well. Nares swab came back positive for MRSA. ANTIMICROBIALS: The patient is on: 1. IV vancomycin. 2. Topical Bactroban to the nares. 3. Levaquin. PHYSICAL EXAMINATION: GENERAL: This is a fragile, elderly woman, who is lying comfortably in bed. HEENT: Head atraumatic, normocephalic. Sclerae are anicteric. Buccal mucosa pink, dry. NECK: Supple, trachea midline. CHEST: Chest rise is symmetrical. Breath sounds clear, diminished to the bases. HEART: S1, S2. ABDOMEN: Soft. Bowel tones present. EXTREMITIES: Without cyanosis. ASSESSMENT: 1. Coagulase-negative Staphylococcus bacteremia, possibly skin contaminant, with repeat blood cultu res negative. 2. Urinary tract infection. 3. Methicillin-resistant Staphylococcus aureus nares colonization. 4. Acute on chronic kidney disease. 5. Dysphagia. 6. Gouty arthritis. PLAN: The patient remains clinically unchanged. Still with leukocytosis, which is tracing down slo wly. No shift to the left. Repeat blood cultures are negative. Coagulase-negative staph that grew in her blood type is susceptible to Levaquin and Cipro, as well as doxycycline. We are going to di scontinue IV vancomycin and start her on IV doxycycline. Continue Levaquin for now, Bactroban to th e nares and order a chest x-ray to rule out pneumonia, as the patient has significant dysphagia. Dictated By: BRADLEY PRATER DRYING MACHINE BACK TENDER for BAHMAN OSMAN/MARIEL Conf#: [id number] DID#: [id number]
--- NOTE | 2016-12-20 14:24 | PN ---
Date/Time of Note Date/Time of Note DATE: 12/20/16 TIME: 14:17 Assessment/Plan VTE Prophylaxis VTE Prophylaxis Intervention: SCD's Lines/Catheters IV [facility] Type ([facility]): Peripheral IV Urinary Cath still in place: No Assessment/Plan Chief Complaint/Hosp Course Urosepsis Dehydration Prerenal azothemia HTN gouty arthritis CAD/ [place] Mild cognitive Impairment Decubitus Stage I Problems: Subjective 24 Hr Interval Summary Free Text/Dictation 89 year old female with HTN, Aortic Sclerois, CKD, Chronic Anemia, decubitus stage I MCI, present ed with urosepsis, Coag-Staph in blood, MRSA in nares, Psuedomona in urine culture on dual ABX Exam/Review of Systems Vital Signs Vitals Vital Signs Date Time Temp Pulse Resp B/P Pulse Ox O2 Delivery O2 Flow Rate FiO2 12/20/16 12:48 67 12/20/16 11:27 97.9 18 104/53 99 12/20/16 08:00 Nasal Cannula 2.0 12/20/16 05:50 28 Intake and Output 12/19/16 12/19/16 12/20/16 15:00 23:00 07:00 Intake Total 720 ml 570 ml Balance 720 ml 570 ml Results Result Diagram: 12/20/16 0545 12/20/16 0545 Results 24 hrs Laboratory Tests Test 12/20/16 05:45 Alanine Aminotransferase (ALT/SGPT) 29 Albumin 2.1 L Albumin/Globulin Ratio 0.56 Alkaline Phosphatase 63 Anion Gap 16 Aspartate Amino Transf (AST/SGOT) 21 Blood Morphology Comment Blood Urea Nitrogen 61 H Calcium Level 8.1 L Carbon Dioxide Level 20 L Chloride Level 103 Creatinine 2.36 H Direct Bilirubin 0.00 Eosinophils # 5.3 H Eosinophils % 34.0 H Globulin 3.70 H Glucose Level 90 Hematocrit 27.1 L Hemoglobin 9.1 L Indirect Bilirubin 0.0 Lymphocytes # 1.3 Lymphocytes % 8.0 L Mean Corpuscular Hemoglobin 28.6 L Mean Corpuscular Hemoglobin Concent 33.5 Mean Corpuscular Volume 85.3 Mean Platelet Volume 7.3 L Monocytes # 0.2 L Monocytes % 1.0 Neutrophils # 8.9 H Neutrophils % 57.0 Platelet Count 421 Potassium Level 4.5 Red Blood Count 3.17 L Red Cell Distribution Width 23.9 H Sodium Level 134 L Total Bilirubin 0.0 L Total Protein 5.8 L White Blood Count 15.7 H Medications Medications Current Medications Dextrose/Sodium Chloride (D5-1/2ns) 1,000 ml @ 50 mls/hr Q20H IV Last administered on 12/19/16 20:17; Admin Dose 50 MLS/HR; Start 12/14/16 at 16:30 Allopurinol (Zyloprim) 300 mg DAILY PO Last administered on 12/20/16 08:23; Admin Dose 300 MG; Start 12/15/16 at 09:00 Ascorbic Acid (Vitamin C) 500 mg DAILY PO Last administered on 12/20/16 08:23 ; Admin Dose 500 MG; Start 12/15/16 at 09:00 Cholecalciferol (Vitamin D) 2,000 unit DAILY PO Last administered on 12/20/16 08:23; Admin Dose 2,000 UNIT; Start 12/15/16 at 09:00 Magnesium Hydroxide (Milk Of Mag) 30 ml Q24H PRN PO CONSTIPATION; Start at 16:30 Multivitamins Therapeutic (Theragran) 1 tab DAILY PO Last administered on 08:23; Admin Dose 1 TAB; Start 12/15/16 at 09:00 Sertraline HCl (Zoloft) 50 mg DAILY PO Last administered on 12/20/16 08:22; Admin Dose 50 MG; Start 12/15/16 at 09:00 Calcium Carbonate (Oyster Shell Calcium) 1.25 gm TID PO Last administered on 12:05; Admin Dose 1.25 GM; Start 12/14/16 at 17:00 Pantoprazole (Protonix Tab) 40 mg DAILY@06 PO Last administered on 12/20/16 05 :51; Admin Dose 40 MG; Start 12/15/16 at 06:00 Tramadol HCl (Ultram) 50 mg Q12H PRN PO PAIN LEVEL 6-10 Last administered on 15:38; Admin Dose 50 MG; Start 12/14/16 at 18:30 Acetaminophen 650 mg 650 mg Q6H PRN PO PAIN AND OR ELEVATED TEMP; Start at 18:30 Levofloxacin/ Dextrose (Levaquin 250 Mg/ D5W 50 ml (Pmx)) 50 ml @ 50 mls/hr Q48H IVPB Last administered on 12/20/16 12:04; Admin Dose 50 MLS/HR; Start at 11:30 Mupirocin (Bactroban) 1 applic BID TOP Last administered on 12/20/16 08:24; Admin Dose 1 APPLIC; Start 12/16/16 at 21:00 Verapamil HCl (Isoptin) 80 mg BID PO Last administered on 12/20/16 08:23; Admin Dose 80 MG; Start 12/17/16 at 15:00 Indomethacin 25 mg 25 mg BID PO Last administered on 12/20/16 08:22; Admin Dose 25 MG; Start 12/17/16 at 16:00 Doxycycline Hyclate/Sodium Chloride (Vibramycin/NS) 250 ml @ 250 mls/hr Q12 IVPB ; Start 12/20/16 at 21:00 JANNETTE LAZCANO MD Dec 20, 2016 14:24
[2016-12-20] MEDS: COLLAGENASE 30 GM TUBE TOP SCH (16:30)
[2016-12-20] MEDS: DEXTROSE 5%-0.45% NACL 1,000 ML IV SCH (21:15)
[2016-12-20] MEDS: DOXYCYCLINE 100 MG in SOD CHLORIDE 0.9% 250 ML IVPB SCH (21:15)
[2016-12-21] VITALS (10 sets, daily range): BP systolic 111–131; BP diastolic 54–72; PULSE 76–95; RESP 17–20
[2016-12-21] MEDS: PANTOPRAZOLE (EC) 40 MG TAB PO SCH (06:00)
[2016-12-21] MEDS: COLLAGENASE 30 GM TUBE TOP SCH (09:19)
[2016-12-21] MEDS: SERTRALINE 50 MG TAB PO SCH (09:22)
[2016-12-21] MEDS: CHOLECALCIFEROL 1,000 UNIT TAB PO SCH (09:22)
[2016-12-21] MEDS: DOXYCYCLINE 100 MG in SOD CHLORIDE 0.9% 250 ML IVPB SCH ×2 (09:22→21:47)
[2016-12-21] MEDS: ALLOPURINOL 300 MG TAB PO SCH (09:22)
[2016-12-21] MEDS: ASCORBIC ACID 500 MG TAB PO SCH (09:22)
[2016-12-21] MEDS: MULTIVITAMINS THERAPEUTIC TAB PO SCH (09:22)
[2016-12-21] MEDS: CALCIUM CARBONATE 1.25 GM TAB PO SCH ×3 (09:22→21:47)
[2016-12-21] MEDS: INDOMETHACIN 25 MG PO SCH ×2 (09:22→21:48)
[2016-12-21] MEDS: VERAPAMIL 80 MG TAB PO SCH ×2 (09:23→21:48)
[2016-12-21] MEDS: MUPIROCIN 2% 22 GM OINT TOP SCH ×2 (09:23→21:48)
--- NOTE | 2016-12-21 10:08 | CONS ---
Date/Time of Note Date/Time of Note DATE: 12/21/16 TIME: 10:08 Assessment/Plan Assessment/Plan Chief Complaint/Hosp Course D PROGRESS NOTE TOTAL ABX DAY # 5 => Levaquin, Doxy #1 s/p Vanco IV 24H INTERVAL SUMMARY * Frail 89 yo elder F, lying supine with supplemental O2 lethargic, responds to verbal stimuli, sitter @ bedside * No fevers, VSS, NAD * CXR WITH: IMPRESSION: 1. New mild left basilar atelectasis or pneumonia. 2. Mild cardiomegaly. 3. Atherosclerosis. PHYSICAL EXAMINATION: GENERAL: 89 yo frail elder F HEENT: Unremarkable NECK: Supple, trachea midline. 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 SIRS w/leukocytosis due to (+GNR PSAR Urinary tract infection. 2. Coagulase-negative Staphylococcus bacteremia, consistent with skin contaminant, with repeat blood cultures negative. 3. Dysphagia 4. Painful gouty arthritis w/elevated uric acid 5. Acute on chronic kidney disease. 6. Retrocardiac hiatal hernia 7. CHF w/Elevated BNP ->course markings on admission CXR - nonspecific 8. Possible LLL Pneumonitis = CXR 12/20/16 New mild left basilar atelectasis or pneumonia. (+)MRSA Nares ->Bactroban INVASIVES: PIV ABX ALLERGY: KNDA CURRENT ABX: TOTAL ABX DAY # 5 => Levaquin, Doxy #1 s/p Vanco IV ID RECOMMENDATIONS: 1. Doxy + Levaquin for concern HCAP + PSAR UTI 2. DC ABX when WBC normalizes 3. Aspiration precautions . Problems: Consultation Date/Type/Reason Admit Date/Time Dec 14, 2016 at 14:52 Initial Consult Date Exam/Review of Systems Vital Signs Vitals Vital Signs Date Time Temp Pulse Resp B/P Pulse Ox O2 Delivery O2 Flow Rate FiO2 12/21/16 08:53 85 12/21/16 04:04 97.5 17 118/57 97 12/21/16 03:42 2.0 28 12/20/16 08:00 Nasal Cannula Intake and Output 12/20/16 12/20/16 12/21/16 15:00 23:00 07:00 Intake Total 750 ml 1150 ml Balance 750 ml 1150 ml Results Result Diagram: 12/20/1645 12/20/16 0545 Medications Medications Current Medications Dextrose/Sodium Chloride (D5-1/2ns) 1,000 ml @ 50 mls/hr Q20H IV Last administered on 12/20/16 21:15; Admin Dose 50 MLS/HR; Start 12/14/16 at 16:30 Allopurinol (Zyloprim) 300 mg DAILY PO Last administered on 12/21/16 09:22; Admin Dose 300 MG; Start 12/15/16 at 09:00 Ascorbic Acid (Vitamin C) 500 mg DAILY PO Last administered on 12/21/16 09:22 ; Admin Dose 500 MG; Start 12/15/16 at 09:00 Cholecalciferol (Vitamin D) 2,000 unit DAILY PO Last administered on 12/21/16 09:22; Admin Dose 2,000 UNIT; Start 12/15/16 at 09:00 Magnesium Hydroxide (Milk Of Mag) 30 ml Q24H PRN PO CONSTIPATION; Start at 16:30 Multivitamins Therapeutic (Theragran) 1 tab DAILY PO Last administered on 09:22; Admin Dose 1 TAB; Start 12/15/16 at 09:00 Sertraline HCl (Zoloft) 50 mg DAILY PO Last administered on 12/21/16 09:22; Admin Dose 50 MG; Start 12/15/16 at 09:00 Calcium Carbonate (Oyster Shell Calcium) 1.25 gm TID PO Last administered on 09:22; Admin Dose 1.25 GM; Start 12/14/16 at 17:00 Pantoprazole (Protonix Tab) 40 mg DAILY@06 PO Last administered on 12/20/16 05 :51; Admin Dose 40 MG; Start 12/15/16 at 06:00 Tramadol HCl (Ultram) 50 mg Q12H PRN PO PAIN LEVEL 6-10 Last administered on 15:38; Admin Dose 50 MG; Start 12/14/16 at 18:30 Acetaminophen 650 mg 650 mg Q6H PRN PO PAIN AND OR ELEVATED TEMP; Start at 18:30 Levofloxacin/ Dextrose (Levaquin 250 Mg/ D5W 50 ml (Pmx)) 50 ml @ 50 mls/hr Q48H IVPB Last administered on 12/20/16 12:04; Admin Dose 50 MLS/HR; Start at 11:30 Mupirocin (Bactroban) 1 applic BID TOP Last administered on 12/21/16 09:23; Admin Dose 1 APPLIC; Start 12/16/16 at 21:00 Verapamil HCl (Isoptin) 80 mg BID PO Last administered on 12/21/16 09:23; Admin Dose 80 MG; Start 12/17/16 at 15:00 Indomethacin 25 mg 25 mg BID PO Last administered on 12/21/16 09:22; Admin Dose 25 MG; Start 12/17/16 at 16:00 Doxycycline Hyclate/Sodium Chloride (Vibramycin/NS) 250 ml @ 250 mls/hr Q12 IVPB Last administered on 12/21/16 09:22; Admin Dose 250 MLS/HR; Start at 21:00 Collagenase (Santyl) 1 applic DAILY TOP Last administered on 12/21/16 09:19; Admin Dose 1 APPLIC; Start 12/20/16 at 16:30 LUDY HARLEY NP Dec 21, 2016 10:08
--- NOTE | 2016-12-21 11:56 | PN ---
Date/Time of Note Date/Time of Note DATE: 12/21/16 TIME: 11:52 Assessment/Plan VTE Prophylaxis VTE Prophylaxis Intervention: SCD's Lines/Catheters IV [facility]ter Type (from [facility]): Saline Lock Urinary Cath still in place: Yes Assessment/Plan Chief Complaint/Hosp Course Urosepsis Dehydration Prerenal azothemia HTN gouty arthritis CAD/ PA Mild cognitive Impairment Decubitus Stage I Problems: Subjective 24 Hr Interval Summary Free Text/Dictation 89 year old femalw with HTN, , MCI, CRF/Anemia, Gouty Arthritis OA, Dec Stage I present with urosepsis on Triple Abx. PO intake on soft mechical diet is improving. Today more confused but this am was more verbal. Constitutional: no complaints Exam/Review of Systems Vital Signs Vitals Vital Signs Date Time Temp Pulse Resp B/P Pulse Ox O2 Delivery O2 Flow Rate FiO2 12/21/16 09:00 Nasal Cannula 2.0 12/21/16 08:53 85 12/21/16 04:04 97.5 17 118/57 97 12/21/16 03:42 28 Intake and Output 12/20/16 12/20/16 12/21/16 15:00 23:00 07:00 Intake Total 750 ml 1150 ml Balance 750 ml 1150 ml Results Result Diagram: 12/20/16 0545 12/20/16 0545 Medications Medications Current Medications Dextrose/Sodium Chloride (D5-1/2ns) 1,000 ml @ 50 mls/hr Q20H IV Last administered on 12/20/16 21:15; Admin Dose 50 MLS/HR; Start 12/14/16 at 16:30 Allopurinol (Zyloprim) 300 mg DAILY PO Last administered on 12/21/16 09:22; Admin Dose 300 MG; Start 12/15/16 at 09:00 Ascorbic Acid (Vitamin C) 500 mg DAILY PO Last administered on 12/21/16 09:22 ; Admin Dose 500 MG; Start 12/15/16 at 09:00 Cholecalciferol (Vitamin D) 2,000 unit DAILY PO Last administered on 12/21/16 09:22; Admin Dose 2,000 UNIT; Start 12/15/16 at 09:00 Magnesium Hydroxide (Milk Of Mag) 30 ml Q24H PRN PO CONSTIPATION; Start at 16:30 Multivitamins Therapeutic (Theragran) 1 tab DAILY PO Last administered on 09:22; Admin Dose 1 TAB; Start 12/15/16 at 09:00 Sertraline HCl (Zoloft) 50 mg DAILY PO Last administered on 12/21/16 09:22; Admin Dose 50 MG; Start 12/15/16 at 09:00 Calcium Carbonate (Oyster Shell Calcium) 1.25 gm TID PO Last administered on 09:22; Admin Dose 1.25 GM; Start 12/14/16 at 17:00 Pantoprazole (Protonix Tab) 40 mg DAILY@06 PO Last administered on 12/20/16 05 :51; Admin Dose 40 MG; Start 12/15/16 at 06:00 Tramadol HCl (Ultram) 50 mg Q12H PRN PO PAIN LEVEL 6-10 Last administered on 15:38; Admin Dose 50 MG; Start 12/14/16 at 18:30 Acetaminophen 650 mg 650 mg Q6H PRN PO PAIN AND OR ELEVATED TEMP; Start at 18:30 Levofloxacin/ Dextrose (Levaquin 250 Mg/ D5W 50 ml (Pmx)) 50 ml @ 50 mls/hr Q48H IVPB Last administered on 12/20/16 12:04; Admin Dose 50 MLS/HR; Start at 11:30 Mupirocin (Bactroban) 1 applic BID TOP Last administered on 12/21/16 09:23; Admin Dose 1 APPLIC; Start 12/16/16 at 21:00 Verapamil HCl (Isoptin) 80 mg BID PO Last administered on 12/21/16 09:23; Admin Dose 80 MG; Start 12/17/16 at 15:00 Indomethacin 25 mg 25 mg BID PO Last administered on 12/21/16 09:22; Admin Dose 25 MG; Start 12/17/16 at 16:00 Doxycycline Hyclate/Sodium Chloride (Vibramycin/NS) 250 ml @ 250 mls/hr Q12 IVPB Last administered on 12/21/16 09:22; Admin Dose 250 MLS/HR; Start at 21:00 Collagenase (Santyl) 1 applic DAILY TOP Last administered on 12/21/16 09:19; Admin Dose 1 APPLIC; Start 12/20/16 at 16:30 JANNETTE LAZCANO MD Dec 21, 2016 11:56
[2016-12-21] MEDS ORDERED: VANCOMYCIN 750 MG in SOD CHLORIDE 0.9% 150 ML IVPB SCH (14:00)
[2016-12-21] MEDS: DEXTROSE 5%-0.45% NACL 1,000 ML IV SCH (17:34)
[2016-12-22] VITALS (11 sets, daily range): BP systolic 119–141; BP diastolic 57–89; PULSE 70–90; RESP 15–21
[2016-12-22] MEDS: PANTOPRAZOLE (EC) 40 MG TAB PO SCH (06:00)
[2016-12-22 08:03] LABS: ALBUMIN 2.2 g/dl (3.3-4.9)
[2016-12-22 08:06] LABS: CREATININE 2.57 mg/dl (0.44-1.00)
[2016-12-22 08:07] LABS: ALBUMIN/GLOBULIN RATIO 0.56; CALCIUM 9.3 mg/dl (8.4-10.2); IRON 36 ug/dl (35-150); TOTAL PROTEIN 6.1 g/dl (6.1-8.1)
[2016-12-22 08:16] LABS: TOTAL IRON BINDING CAPACITY 188 ug/dl (241-421)
[2016-12-22 08:39] LABS: BASOPHIL # 0.1 10^3/ul (0.0-0.1); BASOPHILS % 0.5 % (0.0-2.0); HEMATOCRIT 25.6 % (37.0-47.0); HEMOGLOBIN 8.6 g/dl (12.0-16.0); LYMPHOCYTES # 1.1 10^3/ul (0.8-2.9); MEAN CORPUSCULAR HGB CONC 33.6 g/dl (32.0-37.0); MEAN CORPUSCULAR VOLUME 83.4 fl (82.0-101.0); MEAN PLATELET VOLUME 7.2 fl (7.4-10.4); MONOCYTE # 1.2 10^3/ul (0.3-0.9); MONOCYTES % 6.2 % (0.0-11.0); NEUTROPHIL # 13.7 10^3/ul (1.6-7.5); NEUTROPHILS % 71.6 % (39.0-77.0); PLATELET COUNT 471 10^3/UL (140-440); RED BLOOD COUNT 3.07 10^6/ul (4.20-5.40); RED CELL DISTRIBUTION WIDTH 24.8 % (11.5-14.5); UNCORRECTED WBC 19.2 10^3/ul (4.8-10.8); WHITE BLOOD COUNT 19.2 10^3/ul (4.8-10.8)
[2016-12-22 09:01] LABS: CONDITION 1; EOSINOPHILS % 15.7 % (0.0-7.0); LH ANALYZER COMMENTS 1
--- NOTE | 2016-12-22 09:12 | PN ---
Date/Time of Note Date/Time of Note DATE: 12/22/16 TIME: 09:06 Assessment/Plan VTE Prophylaxis VTE Prophylaxis Intervention: SCD's Lines/Catheters IV Catheter Type (from [facility]): Saline Lock Urinary Cath still in place: Yes Assessment/Plan Chief Complaint/Hosp Course Urosepsis Dehydration Prerenal azothemia HTN gouty arthritis CAD/ [place] Mild cognitive Impairment Decubitus Stage I Problems: Subjective 24 Hr Interval Summary Free Text/Dictation Non verbal this am , attempting to speak. remain afebrile, CXR result noted. BC from 12/18 remain negative. Mild inc in BUN/ CR. will decrease indocin to QD Spoken to family in detail about DNR/DNI. Pt is full CODE On Triple ABX. If PO remain poor will consider TPN. Family does not want NG feeding now. Subjective hx not possible: pt non-verbal Exam/Review of Systems Vital Signs Vitals Vital Signs Date Time Temp Pulse Resp B/P Pulse Ox O2 Delivery O2 Flow Rate FiO2 12/22/16 07:57 98.0 94 18 119/67 94 12/21/16 22:00 Nasal Cannula 2.0 12/21/16 03:42 28 Intake and Output 12/21/16 12/21/16 12/22/16 15:00 23:00 07:00 Intake Total 400 ml Balance 400 ml Results Result Diagram: 12/22/16 0703 12/22/16 0703 Results 24 hrs Laboratory Tests Test 12/22/16 07:03 Alanine Aminotransferase (ALT/SGPT) 26 Albumin 2.2 L Albumin/Globulin Ratio 0.56 Alkaline Phosphatase 68 Anion Gap 17 H Aspartate Amino Transf (AST/SGOT) 23 Basophils # 0.1 Basophils % 0.5 Blood Morphology Comment Blood Urea Nitrogen 67 H Calcium Level 9.3 Carbon Dioxide Level 20 L Chloride Level 108 Creatinine 2.57 H Direct Bilirubin 0.00 Eosinophils # 3.0 H Eosinophils % 15.7 H Globulin 3.90 H Glucose Level 61 L Hematocrit 25.6 L Hemoglobin 8.6 L Indirect Bilirubin 0.0 Iron Level 36 Lymphocytes # 1.1 Lymphocytes % 6.0 L Mean Corpuscular Hemoglobin 28.0 L Mean Corpuscular Hemoglobin Concent 33.6 Mean Corpuscular Volume 83.4 Mean Platelet Volume 7.2 L Monocytes # 1.2 H Monocytes % 6.2 Neutrophils # 13.7 H Neutrophils % 71.6 Nucleated Red Blood Cells # 0.0 Nucleated Red Blood Cells % 0.0 Percent Iron Saturation 19 L Platelet Count 471 H Potassium Level 5.0 Red Blood Count 3.07 L Red Cell Distribution Width 24.8 H Sodium Level 140 Total Bilirubin 0.0 L Total Iron Binding Capacity 188 L Total Protein 6.1 White Blood Count 19.2 #H Medications Medications Current Medications Dextrose/Sodium Chloride (D5-1/2ns) 1,000 ml @ 50 mls/hr Q20H IV Last administered on 12/21/16 17:34; Admin Dose 50 MLS/HR; Start 12/14/16 at 16:30 Allopurinol (Zyloprim) 300 mg DAILY PO Last administered on 12/21/16 09:22; Admin Dose 300 MG; Start 12/15/16 at 09:00 Ascorbic Acid (Vitamin C) 500 mg DAILY PO Last administered on 12/21/16 09:22 ; Admin Dose 500 MG; Start 12/15/16 at 09:00 Cholecalciferol (Vitamin D) 2,000 unit DAILY PO Last administered on 12/21/16 09:22; Admin Dose 2,000 UNIT; Start 12/15/16 at 09:00 Magnesium Hydroxide (Milk Of Mag) 30 ml Q24H PRN PO CONSTIPATION; Start at 16:30 Multivitamins Therapeutic (Theragran) 1 tab DAILY PO Last administered on 09:22; Admin Dose 1 TAB; Start 12/15/16 at 09:00 Sertraline HCl (Zoloft) 50 mg DAILY PO Last administered on 12/21/16 09:22; Admin Dose 50 MG; Start 12/15/16 at 09:00 Calcium Carbonate (Oyster Shell Calcium) 1.25 gm TID PO Last administered on 21:47; Admin Dose 1.25 GM; Start 12/14/16 at 17:00 Pantoprazole (Protonix Tab) 40 mg DAILY@06 PO Last administered on 12/20/16 05 :51; Admin Dose 40 MG; Start 12/15/16 at 06:00 Tramadol HCl (Ultram) 50 mg Q12H PRN PO PAIN LEVEL 6-10 Last administered on 15:38; Admin Dose 50 MG; Start 12/14/16 at 18:30 Acetaminophen 650 mg 650 mg Q6H PRN PO PAIN AND OR ELEVATED TEMP; Start at 18:30 Levofloxacin/ Dextrose (Levaquin 250 Mg/ D5W 50 ml (Pmx)) 50 ml @ 50 mls/hr Q48H IVPB Last administered on 12/20/16 12:04; Admin Dose 50 MLS/HR; Start at 11:30 Mupirocin (Bactroban) 1 applic BID TOP Last administered on 12/21/16 21:48; Admin Dose 1 APPLIC; Start 12/16/16 at 21:00 Verapamil HCl (Isoptin) 80 mg BID PO Last administered on 12/21/16 21:48; Admin Dose 80 MG; Start 12/17/16 at 15:00 Indomethacin 25 mg 25 mg BID PO Last administered on 12/21/16 21:48; Admin Dose 25 MG; Start 12/17/16 at 16:00 Doxycycline Hyclate/Sodium Chloride (Vibramycin/NS) 250 ml @ 250 mls/hr Q12 IVPB Last administered on 12/21/16 21:47; Admin Dose 250 MLS/HR; Start at 21:00 Collagenase (Santyl) 1 applic DAILY TOP Last administered on 12/21/16 09:19; Admin Dose 1 APPLIC; Start 12/20/16 at 16:30 JANNETTE LAZCANO MD Dec 22, 2016 09:12
[2016-12-22] MEDS: INDOMETHACIN 25 MG PO SCH (09:20)
[2016-12-22] MEDS: CALCIUM CARBONATE 1.25 GM TAB PO SCH ×3 (09:22→21:00)
[2016-12-22] MEDS: SERTRALINE 50 MG TAB PO SCH (09:22)
[2016-12-22] MEDS: CHOLECALCIFEROL 1,000 UNIT TAB PO SCH (09:22)
[2016-12-22] MEDS: MULTIVITAMINS THERAPEUTIC TAB PO SCH (09:22)
[2016-12-22] MEDS: MUPIROCIN 2% 22 GM OINT TOP SCH ×2 (09:22→21:02)
[2016-12-22] MEDS: ALLOPURINOL 300 MG TAB PO SCH (09:22)
[2016-12-22] MEDS: ASCORBIC ACID 500 MG TAB PO SCH (09:22)
[2016-12-22] MEDS: VERAPAMIL 80 MG TAB PO SCH ×2 (09:22→21:00)
[2016-12-22] MEDS: DOXYCYCLINE 100 MG in SOD CHLORIDE 0.9% 250 ML IVPB SCH ×2 (09:23→20:56)
[2016-12-22] MEDS: COLLAGENASE 30 GM TUBE TOP SCH (09:24)
[2016-12-22 10:10] LABS: FOLATE 13.7 ng/ml (2.8-20.0)
[2016-12-22] MEDS: LEVOFLOXACIN 250MG/D5W (PMX) 50 ML IVPB SCH (11:25)
[2016-12-22] MEDS: DEXTROSE 5%-0.45% NACL 1,000 ML IV SCH (13:28)
--- NOTE | 2016-12-22 16:04 | CONS ---
Date/Time of Note Date/Time of Note DATE: 12/22/16 TIME: 15:33 Assessment/Plan Assessment/Plan Chief Complaint/Hosp Course D PROGRESS NOTE TOTAL ABX DAY # 6 => Levaquin, Doxy #2 s/p Vanco IV 24H INTERVAL SUMMARY * Pt is resting comfortably, Frail 89 yo elder F, lying supine with supplemental O2 lethargic, responds to verbal stimuli, sitter @ bedside * WBC rising w/frequent stools reported 2 days ago concern for C.Diff colitis * No fevers, VSS, NAD * CXR WITH: IMPRESSION: 1. New mild left basilar atelectasis or pneumonia. 2. Mild cardiomegaly. 3. Atherosclerosis. PHYSICAL EXAMINATION: GENERAL: 89 yo frail elder F HEENT: Unremarkable NECK: Supple, trachea midline. 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 SIRS w/leukocytosis due to (+GNR PSAR Urinary tract infection * => ?new issue ABX associated Diarrhea ? w/rising WBC post ABX ? 2. Coagulase-negative Staphylococcus bacteremia, consistent with skin contaminant, with repeat blood cultures negative. 3. Dysphagia 4. Painful gouty arthritis w/elevated uric acid 5. Acute on chronic kidney disease. 6. Retrocardiac hiatal hernia 7. CHF w/Elevated BNP ->course markings on admission CXR - nonspecific 8. Possible LLL Pneumonitis = CXR 12/20/16 New mild left basilar atelectasis or pneumonia. (+)MRSA Nares ->Bactroban INVASIVES: PIV ABX ALLERGY: KNDA CURRENT ABX: TOTAL ABX DAY #6 => Levaquin, Doxy #2 s/p Vanco IV ID RECOMMENDATIONS: 1. Doxy + Levaquin for concern HCAP + PSAR UTI 2. Check stool for C.Diff and start empiric Vanco Liq for ABX associated frequent stools 3. Aspiration precautions . Problems: Consultation Date/Type/Reason Admit Date/Time Dec 14, 2016 at 14:52 Exam/Review of Systems Vital Signs Vitals Vital Signs Date Time Temp Pulse Resp B/P Pulse Ox O2 Delivery O2 Flow Rate FiO2 12/22/16 12:21 70 12/22/16 11:55 98.4 19 120/57 96 12/22/16 08:30 Nasal Cannula 2.0 12/21/16 03:42 28 Intake and Output 12/21/16 12/21/16 12/22/16 15:00 23:00 07:00 Intake Total 400 ml Balance 400 ml Results Result Diagram: 12/22/16 0703 12/22/16 0703 Results 24 hrs Laboratory Tests Test 12/22/16 07:03 Alanine Aminotransferase (ALT/SGPT) 26 Albumin 2.2 L Albumin/Globulin Ratio 0.56 Alkaline Phosphatase 68 Anion Gap 17 H Aspartate Amino Transf (AST/SGOT) 23 Basophils # 0.1 Basophils % 0.5 Blood Morphology Comment Blood Urea Nitrogen 67 H Calcium Level 9.3 Carbon Dioxide Level 20 L Chloride Level 108 Creatinine 2.57 H Direct Bilirubin 0.00 Eosinophils # 3.0 H Eosinophils % 15.7 H Ferritin 401.0 H Folate 13.7 Globulin 3.90 H Glucose Level 61 L Hematocrit 25.6 L Hemoglobin 8.6 L Indirect Bilirubin 0.0 Iron Level 36 Lymphocytes # 1.1 Lymphocytes % 6.0 L Mean Corpuscular Hemoglobin 28.0 L Mean Corpuscular Hemoglobin Concent 33.6 Mean Corpuscular Volume 83.4 Mean Platelet Volume 7.2 L Monocytes # 1.2 H Monocytes % 6.2 Neutrophils # 13.7 H Neutrophils % 71.6 Nucleated Red Blood Cells # 0.0 Nucleated Red Blood Cells % 0.0 Percent Iron Saturation 19 L Platelet Count 471 H Potassium Level 5.0 Red Blood Count 3.07 L Red Cell Distribution Width 24.8 H Sodium Level 140 Total Bilirubin 0.0 L Total Iron Binding Capacity 188 L Total Protein 6.1 Vitamin B12 Level 945 H White Blood Count 19.2 #H Medications Medications Current Medications Dextrose/Sodium Chloride (D5-1/2ns) 1,000 ml @ 50 mls/hr Q20H IV Last administered on 12/22/16 13:28; Admin Dose 50 MLS/HR; Start 12/14/16 at 16:30 Allopurinol (Zyloprim) 300 mg DAILY PO Last administered on 12/22/16 09:22; Admin Dose 300 MG; Start 12/15/16 at 09:00 Ascorbic Acid (Vitamin C) 500 mg DAILY PO Last administered on 12/22/16 09:22 ; Admin Dose 500 MG; Start 12/15/16 at 09:00 Cholecalciferol (Vitamin D) 2,000 unit DAILY PO Last administered on 12/22/16 09:22; Admin Dose 2,000 UNIT; Start 12/15/16 at 09:00 Magnesium Hydroxide (Milk Of Mag) 30 ml Q24H PRN PO CONSTIPATION; Start at 16:30 Multivitamins Therapeutic (Theragran) 1 tab DAILY PO Last administered on 09:22; Admin Dose 1 TAB; Start 12/15/16 at 09:00 Sertraline HCl (Zoloft) 50 mg DAILY PO Last administered on 12/22/16 09:22; Admin Dose 50 MG; Start 12/15/16 at 09:00 Calcium Carbonate (Oyster Shell Calcium) 1.25 gm TID PO Last administered on 09:22; Admin Dose 1.25 GM; Start 12/14/16 at 17:00 Pantoprazole (Protonix Tab) 40 mg DAILY@06 PO Last administered on 12/20/16 05 :51; Admin Dose 40 MG; Start 12/15/16 at 06:00 Tramadol HCl (Ultram) 50 mg Q12H PRN PO PAIN LEVEL 6-10 Last administered on 15:38; Admin Dose 50 MG; Start 12/14/16 at 18:30 Acetaminophen 650 mg 650 mg Q6H PRN PO PAIN AND OR ELEVATED TEMP; Start at 18:30 Levofloxacin/ Dextrose (Levaquin 250 Mg/ D5W 50 ml (Pmx)) 50 ml @ 50 mls/hr Q48H IVPB Last administered on 12/22/16 11:25; Admin Dose 50 MLS/HR; Start at 11:30 Mupirocin (Bactroban) 1 applic BID TOP Last administered on 12/22/16 09:22; Admin Dose 1 APPLIC; Start 12/16/16 at 21:00 Verapamil HCl 80 mg 80 mg BID PO Last administered on 12/22/16 09:22; Admin Dose 80 MG; Start 12/17/16 at 15:00 Doxycycline Hyclate/Sodium Chloride (Vibramycin/NS) 250 ml @ 250 mls/hr Q12 IVPB Last administered on 12/22/16 09:23; Admin Dose 250 MLS/HR; Start at 21:00 Collagenase (Santyl) 1 applic DAILY TOP Last administered on 12/22/16 09:24; Admin Dose 1 APPLIC; Start 12/20/16 at 16:30 Indomethacin (Indocin) 25 mg DAILY PO ; Start 12/23/16 at 09:00 LUDY HARLEY NP Dec 22, 2016 15:43
[2016-12-22] MEDS: VANCOMYCIN HCL 250 MG/5ML POSYG PO SCH (17:36)
[2016-12-23] VITALS (11 sets, daily range): BP systolic 113–152; BP diastolic 61–99; PULSE 87–98; RESP 18–20
[2016-12-23] MEDS: VANCOMYCIN HCL 250 MG/5ML POSYG PO SCH ×3 (05:44→12:00)
[2016-12-23] MEDS: PANTOPRAZOLE (EC) 40 MG TAB PO SCH (05:46)
[2016-12-23] MEDS: MUPIROCIN 2% 22 GM OINT TOP SCH ×2 (09:00→20:24)
[2016-12-23] MEDS: VERAPAMIL 80 MG TAB PO SCH ×2 (09:00→21:00)
[2016-12-23] MEDS: CALCIUM CARBONATE 1.25 GM TAB PO SCH ×3 (09:00→21:00)
[2016-12-23] MEDS: INDOMETHACIN 25 MG PO SCH (09:00)
[2016-12-23] MEDS: ASCORBIC ACID 500 MG TAB PO SCH (09:00)
[2016-12-23] MEDS: ALLOPURINOL 300 MG TAB PO SCH (09:00)
[2016-12-23] MEDS: SERTRALINE 50 MG TAB PO SCH (09:00)
[2016-12-23] MEDS: MULTIVITAMINS THERAPEUTIC TAB PO SCH (09:00)
[2016-12-23] MEDS: CHOLECALCIFEROL 1,000 UNIT TAB PO SCH (09:00)
[2016-12-23] MEDS: COLLAGENASE 30 GM TUBE TOP SCH (09:00)
[2016-12-23] MEDS: DOXYCYCLINE 100 MG in SOD CHLORIDE 0.9% 250 ML IVPB SCH ×2 (09:20→20:23)
[2016-12-23] MEDS: DEXTROSE 5%-0.45% NACL 1,000 ML IV SCH (10:30)
--- NOTE | 2016-12-23 14:21 | PN ---
Date/Time of Note Date/Time of Note DATE: 12/23/16 TIME: 14:15 Assessment/Plan VTE Prophylaxis VTE Prophylaxis Intervention: SCD's Lines/Catheters IV C[facility]ter Type (from [facility] Saline Lock Urinary Cath still in place: Yes Assessment/Plan Chief Complaint/Hosp Course Urosepsis Dehydration Prerenal azothemia HTN gouty arthritis CAD/ [place] Mild cognitive Impairment Decubitus Stage I Problems: Subjective 24 Hr Interval Summary Free Text/Dictation 89 yr old female with HTN, aortic Sclerosis, gouty arthritism MCI/dementia with sepsis on triple abx. Today more lethergic and spoke with ID with rising WBC and poor po intake. Evaluate by Speech therapist who think that she may have aspirated. CXR, possible basiler infilterate. BM is soft for possible C. difff. Will repeat CXR, NGT, Iv Flagyl d/c levaquinn Subjective hx not possible: pt non-verbal Exam/Review of Systems Vital Signs Vitals Vital Signs Date Time Temp Pulse Resp B/P Pulse Ox O2 Delivery O2 Flow Rate FiO2 12/23/16 12:35 96 12/23/16 12:18 97.7 18 135/61 100 12/23/16 08:00 Nasal Cannula 2.0 12/21/16 03:42 28 Intake and Output 12/22/16 12/22/16 12/23/16 15:00 23:00 07:00 Intake Total 450 ml Balance 450 ml Results Result Diagram: 12/22/16 0703 12/22/16 0703 Medications Medications Current Medications Dextrose/Sodium Chloride (D5-1/2ns) 1,000 ml @ 50 mls/hr Q20H IV Last administered on 12/23/16 10:30; Admin Dose 50 MLS/HR; Start 12/14/16 at 16:30 Allopurinol (Zyloprim) 300 mg DAILY PO Last administered on 12/22/16 09:22; Admin Dose 300 MG; Start 12/15/16 at 09:00 Ascorbic Acid (Vitamin C) 500 mg DAILY PO Last administered on 12/22/16 09:22 ; Admin Dose 500 MG; Start 12/15/16 at 09:00 Cholecalciferol (Vitamin D) 2,000 unit DAILY PO Last administered on 12/22/16 09:22; Admin Dose 2,000 UNIT; Start 12/15/16 at 09:00 Magnesium Hydroxide (Milk Of Mag) 30 ml Q24H PRN PO CONSTIPATION; Start at 16:30 Multivitamins Therapeutic (Theragran) 1 tab DAILY PO Last administered on 09:22; Admin Dose 1 TAB; Start 12/15/16 at 09:00 Sertraline HCl (Zoloft) 50 mg DAILY PO Last administered on 12/22/16 09:22; Admin Dose 50 MG; Start 12/15/16 at 09:00 Calcium Carbonate (Oyster Shell Calcium) 1.25 gm TID PO Last administered on 09:22; Admin Dose 1.25 GM; Start 12/14/16 at 17:00 Pantoprazole (Protonix Tab) 40 mg DAILY@06 PO Last administered on 12/20/16 05 :51; Admin Dose 40 MG; Start 12/15/16 at 06:00 Tramadol HCl (Ultram) 50 mg Q12H PRN PO PAIN LEVEL 6-10 Last administered on 15:38; Admin Dose 50 MG; Start 12/14/16 at 18:30 Acetaminophen (Tylenol Tab) 650 mg Q6H PRN PO PAIN AND OR ELEVATED TEMP; Start 12/14/16 at 18:30 Mupirocin (Bactroban) 1 applic BID TOP Last administered on 12/23/16 09:00; Admin Dose 1 APPLIC; Start 12/16/16 at 21:00 Verapamil HCl 80 mg 80 mg BID PO Last administered on 12/22/16 09:22; Admin Dose 80 MG; Start 12/17/16 at 15:00 Doxycycline Hyclate/Sodium Chloride (Vibramycin/NS) 250 ml @ 250 mls/hr Q12 IVPB Last administered on 12/23/16 09:20; Admin Dose 250 MLS/HR; Start at 21:00 Collagenase (Santyl) 1 applic DAILY TOP Last administered on 12/23/16 09:00; Admin Dose 1 APPLIC; Start 12/20/16 at 16:30 Indomethacin 25 mg 25 mg DAILY PO ; Start 12/23/16 at 09:00 Meropenem 100 ml @ 200 mls/hr Q12 IVPB ; Start 12/23/16 at 21:00; Status UNV Metronidazole (Flagyl 500 Mg (Pmx)) 100 ml @ 100 mls/hr Q8 IVPB ; Start at 22:00; Status UNV JANNETTE LAZCANO MD Dec 23, 2016 14:21
--- NOTE | 2016-12-23 14:26 | PN ---
DATE: 12/23/2016 INFECTIOUS DISEASE PROGRESS NOTE SUBJECTIVE: No acute events. The patient is lethargic. Eating poorly per report. No fevers. White blood cell count remained elevated, yesterday was 19.2. No labs this morning. MICROBIOLOGY: Blood culture on admission grew coagulase-negative staph species. Urine culture grew Pseudomonas. Nares swab positive for MRSA. Repeat blood cultures negative. PHYSICAL EXAMINATION: GENERAL: This is a fragile, elderly woman who is lying comfortably in bed. HEENT: Head atraumatic, normocephalic. Sclerae anicteric. Buccal mucosa dry. NECK: Supple, trachea midline. CHEST: Rise symmetrical. Breath sounds diminished to bases. HEART: S1, S2. ABDOMEN: Soft. Bowel tones present. ASSESSMENT: 1. Persistent leukocytosis, possibly secondary to ongoing aspiration. Rule out myelodysplasia. 2. Pseudomonas aeruginosa urinary tract infection on admission. 3. Status post coagulase-negative bacteremia, possibly contaminant. 4. Methicillin-resistant Staphylococcus aureus nares colonization. 5. Acute on chronic kidney disease. 6. Dysphagia. 7. Dementia. PLAN: The patient remains clinically unchanged. She was started on oral vancomycin yesterday for c oncern of C difficile, however, unable to take any p.o. medications. We are going to repeat urine c ultures, repeat chest x-ray. Continue doxycycline, add IV Flagyl and change Levaquin to meropenem. We will check postvoid residuals to make sure she is not retaining urine. Above was discussed with staff. Above was discussed with Dr. Coley. Dictated By: BRADLEY PRATER ADMIN DIR for BAHMAN OSMAN/MARIEL Conf#: [id number] DID#: [id number]
[2016-12-23] MEDS: MEROPENEM 500 MG/100 ML (PMX) 100 ML IVPB SCH ×2 (15:19→23:53)
--- NOTE | 2016-12-23 15:58 | RADRPT ---
PROCEDURE: XR Chest. CLINICAL INDICATION: Shortness of breath. TECHNIQUE: Single frontal view. COMPARISON: 12/20/2016. FINDINGS: There is mild left basilar atelectasis or pneumonia, unchanged. The lungs are otherwise clear. The heart is mildly enlarged. There is calcification in the aorta consistent with atherosclerosis. There is no pleural effusion. There is no pneumothorax. IMPRESSION: 1. No change from 12/20/2016. RPTAT: QQ .Dhaval Marc MD, MD Date Time Electronically viewed and signed by .Dhaval Marc MD, MD on 12/23/2016 15:57 .R/
--- NOTE | 2016-12-23 15:59 | RADRPT ---
PROCEDURE: XR Chest. CLINICAL INDICATION: Check nasogastric tube position. TECHNIQUE: Single frontal view. COMPARISON: 12/23/2016. 1500 hours. FINDINGS: There is a new nasogastric tube with the tube partially coiled in a hiatus hernia the tip directed c ephalad. The tip is folded back on itself and is within the proximal esophagus. There is left basilar atelectasis or pneumonia, unchanged. The lungs are otherwise clear. The heart is mildly enlarged. There is calcification in the aorta consistent with atherosclerosis. There is no pneumothorax. IMPRESSION: 1. The nasogastric tube needs to be repositioned. 2. No other change from the prior study done earlier the same day. RPTAT: QQ .Dhaval Marc MD, MD Date Time Electronically viewed and signed by .Dhaval Marc MD, on 12/23/2016 15:59 .R/
[2016-12-23] MEDS: metroNIDAZOLE 500 MG/NS (PMX) 100 ML IVPB SCH ×2 (16:11→22:26)
--- NOTE | 2016-12-23 16:16 | RADRPT ---
PROCEDURE: XR Chest AP portable CLINICAL INDICATION: NG tube TECHNIQUE: An AP portable radiograph of the chest was submitted. COMPARISON: The study earlier on the same date FINDINGS: Support Hardware: The NG tube again is coiled within the distal esophagus. Cardiovascular: The heart is enlarged but the aorta appears quite atherosclerotic and the pulmonary vasculature is upper normal. Lung Arechiga: Infiltrate or atelectasis projects to the heart with in the left lower lobe, unchanged. Interstitial prominence is again seen at the right lung base. Pleural Spaces: The left costophrenic angle is obscured suspicious for a persistent pleural fluid ac cumulation. No pneumothorax is evident. Osseous Structures: The osseous elements are rarefied. There is suspicion of chronic rotator cuff t ears. Soft Tissues: Unremarkable. IMPRESSION: 1. The NG tube appears to be coiled within the distal esophagus. 2. Normal size heart with atherosclerotic changes involving the aorta and with the pulmonary vascul ature upper normal. 3. Persistent atelectasis or infiltrate involving the left lower lobe with suspicion of a left pleu ral fluid accumulation. Interstitial prominence is seen at the right lung base, unchanged. 4. Osteoporosis with suggestion of chronic rotator cuff tears. Physician Guille Date Time Electronically viewed and signed by Physician Guille on 12/23/2016 16:16 /
--- NOTE | 2016-12-23 16:18 | RADRPT ---
PROCEDURE: Chest Radiograph. CLINICAL INDICATION: Nasogastric tube placement. TECHNIQUE: Single frontal chest radiograph. COMPARISON: Chest radiograph 12/23/2016 at 03:57 p.m. FINDINGS: Heart size is within normal limits. Atherosclerotic calcifications are present. Again seen is a na sogastric tube coiled over the left medial hemithorax, grossly unchanged position compared to 03:57 p.m. bibasilar opacities are grossly unchanged. There are degenerative change of the shoulders. IMPRESSION: 1. Stable positioning of nasogastric tube which is coiled over the left hemithorax and the distal t ip is in the upper esophagus. Recommend repositioning. RPTAT: KK .Zion Sneed MD, MD Date Time Electronically viewed and signed by .Zion Sneed MD, on 12/23/2016 16:18 .B/
[2016-12-24] VITALS (11 sets, daily range): BP systolic 133–138; BP diastolic 64–88; PULSE 91–102; RESP 18–21
[2016-12-24] MEDS ORDERED: VITAMIN A & D 5 GM OINT PACKET TOP ONE (04:26)
[2016-12-24] MEDS: DEXTROSE 5%-0.45% NACL 1,000 ML IV SCH (05:06)
[2016-12-24] MEDS: PANTOPRAZOLE (EC) 40 MG TAB PO SCH (06:00)
[2016-12-24] MEDS: metroNIDAZOLE 500 MG/NS (PMX) 100 ML IVPB SCH ×3 (06:22→22:18)
[2016-12-24 06:57] LABS: ALBUMIN 2.1 g/dl (3.3-4.9); BASOPHILS % 0.3 % (0.0-2.0); EOSINOPHILS # 2.4 10^3/ul (0.0-0.5); EOSINOPHILS % 14.4 % (0.0-7.0); HEMATOCRIT 26.1 % (37.0-47.0); HEMOGLOBIN 8.7 g/dl (12.0-16.0); LYMPHOCYTES # 1.2 10^3/ul (0.8-2.9); LYMPHOCYTES % 7.2 % (15.0-51.0); MEAN CORPUSCULAR HEMOGLOBIN 28.6 pg (29.0-33.0); MEAN CORPUSCULAR HGB CONC 33.3 g/dl (32.0-37.0); MEAN PLATELET VOLUME 6.8 fl (7.4-10.4); MONOCYTE # 1.5 10^3/ul (0.3-0.9); MONOCYTES % 8.9 % (0.0-11.0); NEUTROPHIL # 11.7 10^3/ul (1.6-7.5); NEUTROPHILS % 69.2 % (39.0-77.0); PLATELET COUNT 511 10^3/UL (140-440); POTASSIUM 4.1 mmol/L (3.5-5.1); RED BLOOD COUNT 3.05 10^6/ul (4.20-5.40); UNCORRECTED WBC 16.9 10^3/ul (4.8-10.8); WHITE BLOOD COUNT 16.9 10^3/ul (4.8-10.8)
[2016-12-24 07:00] LABS: ALBUMIN/GLOBULIN RATIO 0.52; CALCIUM 8.9 mg/dl (8.4-10.2); CREATININE 2.11 mg/dl (0.44-1.00); TOTAL PROTEIN 6.1 g/dl (6.1-8.1)
[2016-12-24 07:10] LABS: CONDITION 1; LH ANALYZER COMMENTS 1
[2016-12-24 08:39] LABS: MEAN CORPUSCULAR VOLUME 86.3 fl (82.0-101.0)
[2016-12-24 08:40] LABS: RED CELL DISTRIBUTION WIDTH 25.5 % (11.5-14.5)
[2016-12-24] MEDS: MEROPENEM 500 MG/100 ML (PMX) 100 ML IVPB SCH ×2 (08:44→21:22)
[2016-12-24] MEDS: MUPIROCIN 2% 22 GM OINT TOP SCH ×2 (08:44→21:22)
[2016-12-24] MEDS: CALCIUM CARBONATE 1.25 GM TAB PO SCH ×3 (08:45→21:00)
[2016-12-24] MEDS: VERAPAMIL 80 MG TAB PO SCH ×2 (08:45→21:00)
[2016-12-24] MEDS: INDOMETHACIN 25 MG PO SCH (08:45)
[2016-12-24] MEDS: CHOLECALCIFEROL 1,000 UNIT TAB PO SCH (08:46)
[2016-12-24] MEDS: MULTIVITAMINS THERAPEUTIC TAB PO SCH (08:46)
[2016-12-24] MEDS: COLLAGENASE 30 GM TUBE TOP SCH (08:46)
[2016-12-24] MEDS: SERTRALINE 50 MG TAB PO SCH (08:46)
[2016-12-24] MEDS: ASCORBIC ACID 500 MG TAB PO SCH (08:46)
[2016-12-24] MEDS: ALLOPURINOL 300 MG TAB PO SCH (08:46)
[2016-12-24] MEDS: DOXYCYCLINE 100 MG in SOD CHLORIDE 0.9% 250 ML IVPB SCH ×2 (10:07→21:22)
--- NOTE | 2016-12-24 13:29 | PN ---
Date/Time of Note Date/Time of Note DATE: 12/24/16 TIME: 13:25 Assessment/Plan VTE Prophylaxis VTE Prophylaxis Intervention: SCD's Lines/Catheters IV Catheter Type (from [facility]): Peripheral IV Urinary Cath still in place: Yes Assessment/Plan Chief Complaint/Hosp Course Urosepsis Dehydration Prerenal azothemia HTN gouty arthritis CAD/ [place] Mild cognitive Impairment Decubitus Stage I Problems: Subjective 24 Hr Interval Summary Free Text/Dictation slightly more alert today. Attempt to insert NGT unsuccessful due to large hiatal hernia. WBC count is decreasing. CXR basilar opecification unchanged Exam/Review of Systems Vital Signs Vitals Vital Signs Date Time Temp Pulse Resp B/P Pulse Ox O2 Delivery O2 Flow Rate FiO2 12/24/16 12:14 94 12/24/16 11:39 98.5 18 138/78 98 12/24/16 08:15 Nasal Cannula 2.0 12/21/16 03:42 28 Intake and Output 12/23/16 12/23/16 12/24/16 15:00 23:00 07:00 Intake Total 1350 ml 425 ml Output Total 8 ml Balance 1342 ml 425 ml Results Result Diagram: 12/24/16 0605 12/24/16 0605 Results 24 hrs Laboratory Tests Test 12/24/16 06:05 12/24/16 08:29 Alanine Aminotransferase (ALT/SGPT) 36 Albumin 2.1 L Albumin/Globulin Ratio 0.52 Alkaline Phosphatase 68 Anion Gap 18 H Aspartate Amino Transf (AST/SGOT) 34 Basophils # 0.0 Basophils % 0.3 Blood Morphology Comment Blood Urea Nitrogen 60 H Calcium Level 8.9 Carbon Dioxide Level 17 L Chloride Level 115 H Creatinine 2.11 H Direct Bilirubin 0.00 Eosinophils # 2.4 H Eosinophils % 14.4 H Globulin 4.00 H Glucose Level 56 L Hematocrit 26.1 L Hemoglobin 8.7 L Indirect Bilirubin 0.0 Lymphocytes # 1.2 Lymphocytes % 7.2 L Mean Corpuscular Hemoglobin 28.6 L Mean Corpuscular Hemoglobin Concent 33.3 Mean Corpuscular Volume 86.3 Mean Platelet Volume 6.8 L Monocytes # 1.5 H Monocytes % 8.9 Neutrophils # 11.7 H Neutrophils % 69.2 Nucleated Red Blood Cells # 0.0 Nucleated Red Blood Cells % 0.0 Platelet Count 511 H Potassium Level 4.1 Red Blood Count 3.05 L Red Cell Distribution Width 25.5 H Sodium Level 146 H Total Bilirubin 0.0 L Total Protein 6.1 White Blood Count 16.9 H Bedside Glucose 73 Medications Medications Current Medications Dextrose/Sodium Chloride (D5-1/2ns) 1,000 ml @ 50 mls/hr Q20H IV Last administered on 12/23/16 10:30; Admin Dose 50 MLS/HR; Start 12/14/16 at 16:30 Allopurinol (Zyloprim) 300 mg DAILY PO Last administered on 12/22/16 09:22; Admin Dose 300 MG; Start 12/15/16 at 09:00 Ascorbic Acid (Vitamin C) 500 mg DAILY PO Last administered on 12/22/16 09:22 ; Admin Dose 500 MG; Start 12/15/16 at 09:00 Cholecalciferol (Vitamin D) 2,000 unit DAILY PO Last administered on 12/22/16 09:22; Admin Dose 2,000 UNIT; Start 12/15/16 at 09:00 Magnesium Hydroxide (Milk Of Mag) 30 ml Q24H PRN PO CONSTIPATION; Start at 16:30 Multivitamins Therapeutic (Theragran) 1 tab DAILY PO Last administered on 09:22; Admin Dose 1 TAB; Start 12/15/16 at 09:00 Sertraline HCl (Zoloft) 50 mg DAILY PO Last administered on 12/22/16 09:22; Admin Dose 50 MG; Start 12/15/16 at 09:00 Calcium Carbonate (Oyster Shell Calcium) 1.25 gm TID PO Last administered on 09:22; Admin Dose 1.25 GM; Start 12/14/16 at 17:00 Pantoprazole (Protonix Tab) 40 mg DAILY@06 PO Last administered on 12/20/16 05 :51; Admin Dose 40 MG; Start 12/15/16 at 06:00 Tramadol HCl (Ultram) 50 mg Q12H PRN PO PAIN LEVEL 6-10 Last administered on 15:38; Admin Dose 50 MG; Start 12/14/16 at 18:30 Acetaminophen (Tylenol Tab) 650 mg Q6H PRN PO PAIN AND OR ELEVATED TEMP; Start 12/14/16 at 18:30 Mupirocin (Bactroban) 1 applic BID TOP Last administered on 12/24/16 08:44; Admin Dose 1 APPLIC; Start 12/16/16 at 21:00 Verapamil HCl 80 mg 80 mg BID PO Last administered on 12/22/16 09:22; Admin Dose 80 MG; Start 12/17/16 at 15:00 Doxycycline Hyclate/Sodium Chloride (Vibramycin/NS) 250 ml @ 250 mls/hr Q12 IVPB Last administered on 12/24/16 10:07; Admin Dose 250 MLS/HR; Start at 21:00 Collagenase (Santyl) 1 applic DAILY TOP Last administered on 12/24/16 08:46; Admin Dose 1 APPLIC; Start 12/20/16 at 16:30 Indomethacin 25 mg 25 mg DAILY PO ; Start 12/23/16 at 09:00 Meropenem 100 ml @ 200 mls/hr Q12 IVPB Last administered on 12/24/16 08:44; Admin Dose 200 MLS/HR; Start 12/23/16 at 15:00 Metronidazole (Flagyl 500 Mg (Pmx)) 100 ml @ 100 mls/hr Q8 IVPB Last administered on 12/24/16 06:22; Admin Dose 100 MLS/HR; Start 12/23/16 at 16:00 JANNETTE LAZCANO MD Dec 24, 2016 13:28
[2016-12-24] MEDS ORDERED: VITAMIN A & D 5 GM OINT PACKET TOP PRN (14:30)
[2016-12-24] MEDS ORDERED: IOHEXOL 300MG/ML 30 ML BTL ONE (16:12)
--- NOTE | 2016-12-24 17:39 | RADRPT ---
PROCEDURE: Attempted placement of a nasogastric feeding tube with fluoroscopy. CLINICAL INDICATION: Hiatus hernia. The nurse is unable to pass the feeding tube into the stomach below the diaphragm. TECHNIQUE: Using fluoroscopic guidance, the feeding tube was advanced into the stomach. There is a large hiatus hernia with the tube coiling in the stomach superior to the diaphragm. Contrast was injected into the feeding tube and further fluoroscopic guided attempts to advance the tube below th e diaphragm into the main body of the stomach were unsuccessful. 5 minutes of fluoroscopy time was used. The feeding tube was removed. COMPARISON: Chest x-ray dated 12/23/2016. FINDINGS: There is a hiatus hernia. The feeding tube could not be advanced below the diaphragm. IMPRESSION: 1. Unsuccessful attempt at fluoroscopic guided placement of nasogastric feeding tube. RPTAT: QQ .Dhaval Marc MD, MD Date Time Electronically viewed and signed by .Dhaval Marc MD, MD on 12/24/2016 17:38 .R/
--- NOTE | 2016-12-24 18:34 | PN ---
DATE: 12/24/2016 INFECTIOUS DISEASE PROGRESS NOTE SUBJECTIVE: Patient is nonverbal, lying comfortably in bed. She is febrile. WBC today 16.9 with H and H 8.7 and 26.1, platelets 511, neutrophils 69.2, no bands. BUN 60, creatinine 2.11. MICROBIOLOGY: Repeat blood cultures are pending stool for C. diff came back negative. Urine cultur e pending. ANTIMICROBIALS 1. Meropenem. 2. Flagyl. 3. IV doxycycline. PHYSICAL EXAMINATION: GENERAL: Chronically ill-appearing, elderly woman who is lying comfortably in bed. HEENT: Head: Atraumatic, normocephalic. Sclerae anicteric. Buccal mucosa dry. NECK: Supple, trachea midline. CHEST: Rise symmetrical. Breath sounds diminished to bases. HEART: S1, S2. ABDOMEN: Soft. Bowel tones present. EXTREMITIES: Without cyanosis. ASSESSMENT: 1. Sepsis secondary to ongoing aspiration. 2. Dysphagia. 3. Status post bacteremia with repeat blood cultures negative. 4. Methicillin-resistant Staphylococcus aureus nares colonization. 5. Acute on chronic kidney disease. 6. Failure to thrive. PLAN: The patient remains clinically unchanged. She is on broad-spectrum antibiotics, n.p.o. statu s. The patient is supposed to have NG tube in place, but it was unsuccessful secondary to large hia orlin hernia. Dictated By: BRADLEY PRATER ANALYTICAL RESEARCH CHEMIST for [employer] OSMAN/NTS Conf#: [id number] DID#: [id number]
[2016-12-25] VITALS (13 sets, daily range): BP systolic 130–149; BP diastolic 69–91; PULSE 83–94; RESP 15–20
[2016-12-25] MEDS: DEXTROSE 5%-0.45% NACL 1,000 ML IV SCH ×2 (01:06→21:06)
[2016-12-25] MEDS: PANTOPRAZOLE (EC) 40 MG TAB PO SCH (05:43)
[2016-12-25] MEDS: metroNIDAZOLE 500 MG/NS (PMX) 100 ML IVPB SCH ×3 (06:03→22:53)
[2016-12-25] MEDS: CALCIUM CARBONATE 1.25 GM TAB PO SCH ×3 (09:00→20:17)
[2016-12-25] MEDS: INDOMETHACIN 25 MG PO SCH (09:00)
[2016-12-25] MEDS: SERTRALINE 50 MG TAB PO SCH (09:00)
[2016-12-25] MEDS: VERAPAMIL 80 MG TAB PO SCH ×2 (09:00→20:17)
[2016-12-25] MEDS: ALLOPURINOL 300 MG TAB PO SCH (09:00)
[2016-12-25] MEDS: MULTIVITAMINS THERAPEUTIC TAB PO SCH (09:00)
[2016-12-25] MEDS: CHOLECALCIFEROL 1,000 UNIT TAB PO SCH (09:00)
[2016-12-25] MEDS: COLLAGENASE 30 GM TUBE TOP SCH (09:00)
[2016-12-25] MEDS: ASCORBIC ACID 500 MG TAB PO SCH (09:00)
[2016-12-25] MEDS: MEROPENEM 500 MG/100 ML (PMX) 100 ML IVPB SCH ×2 (10:28→20:43)
[2016-12-25] MEDS: MUPIROCIN 2% 22 GM OINT TOP SCH ×2 (10:28→20:43)
[2016-12-25] MEDS: DOXYCYCLINE 100 MG in SOD CHLORIDE 0.9% 250 ML IVPB SCH ×2 (13:37→21:05)
--- NOTE | 2016-12-25 14:22 | PN ---
Date/Time of Note Date/Time of Note DATE: 12/25/16 TIME: 14:19 Assessment/Plan VTE Prophylaxis VTE Prophylaxis Intervention: SCD's Lines/Catheters IV Catheter Type (from [facility]): Peripheral IV Urinary Cath still in place: No Assessment/Plan Chief Complaint/Hosp Course Urosepsis Dehydration Prerenal azothemia HTN gouty arthritis CAD/ [place] Mild cognitive Impairment Decubitus Stage I Problems: Subjective 24 Hr Interval Summary Free Text/Dictation More alert today. Several attempts of unsuccessful NGT passage. Gi called to otryfor NGT first if unsuccessful, family will authorize Gastric tube. Sacral and pelvic rash. will need Day Cath. Exam/Review of Systems Vital Signs Vitals Vital Signs Date Time Temp Pulse Resp B/P Pulse Ox O2 Delivery O2 Flow Rate FiO2 12/25/16 12:25 83 12/25/16 11:54 98.0 19 130/69 100 12/25/16 07:20 3.0 32 12/24/16 20:00 Nasal Cannula Intake and Output 12/24/16 12/24/16 12/25/16 14:59 22:59 06:59 Intake Total 850 ml Balance 850 ml Results Result Diagram: 12/24/16 0605 12/24/16 0605 Medications Medications Current Medications Dextrose/Sodium Chloride (D5-1/2ns) 1,000 ml @ 50 mls/hr Q20H IV Last administered on 12/23/16 10:30; Admin Dose 50 MLS/HR; Start 12/14/16 at 16:30 Allopurinol (Zyloprim) 300 mg DAILY PO Last administered on 12/22/16 09:22; Admin Dose 300 MG; Start 12/15/16 at 09:00 Ascorbic Acid (Vitamin C) 500 mg DAILY PO Last administered on 12/22/16 09:22 ; Admin Dose 500 MG; Start 12/15/16 at 09:00 Cholecalciferol (Vitamin D) 2,000 unit DAILY PO Last administered on 12/22/16 09:22; Admin Dose 2,000 UNIT; Start 12/15/16 at 09:00 Magnesium Hydroxide (Milk Of Mag) 30 ml Q24H PRN PO CONSTIPATION; Start at 16:30 Multivitamins Therapeutic (Theragran) 1 tab DAILY PO Last administered on 09:22; Admin Dose 1 TAB; Start 12/15/16 at 09:00 Sertraline HCl (Zoloft) 50 mg DAILY PO Last administered on 12/22/16 09:22; Admin Dose 50 MG; Start 12/15/16 at 09:00 Calcium Carbonate (Oyster Shell Calcium) 1.25 gm TID PO Last administered on 09:22; Admin Dose 1.25 GM; Start 12/14/16 at 17:00 Pantoprazole (Protonix Tab) 40 mg DAILY@06 PO Last administered on 12/20/16 05 :51; Admin Dose 40 MG; Start 12/15/16 at 06:00 Tramadol HCl (Ultram) 50 mg Q12H PRN PO PAIN LEVEL 6-10 Last administered on 15:38; Admin Dose 50 MG; Start 12/14/16 at 18:30 Acetaminophen (Tylenol Tab) 650 mg Q6H PRN PO PAIN AND OR ELEVATED TEMP; Start 12/14/16 at 18:30 Mupirocin (Bactroban) 1 applic BID TOP Last administered on 12/25/16 10:28; Admin Dose 1 APPLIC; Start 12/16/16 at 21:00 Verapamil HCl 80 mg 80 mg BID PO Last administered on 12/22/16 09:22; Admin Dose 80 MG; Start 12/17/16 at 15:00 Doxycycline Hyclate/Sodium Chloride (Vibramycin/NS) 250 ml @ 250 mls/hr Q12 IVPB Last administered on 12/25/16 13:37; Admin Dose 250 MLS/HR; Start at 21:00 Collagenase (Santyl) 1 applic DAILY TOP Last administered on 12/25/16 09:00; Admin Dose 1 APPLIC; Start 12/20/16 at 16:30 Indomethacin 25 mg 25 mg DAILY PO ; Start 12/23/16 at 09:00 Meropenem 100 ml @ 200 mls/hr Q12 IVPB Last administered on 12/25/16 10:28; Admin Dose 200 MLS/HR; Start 12/23/16 at 15:00 Metronidazole (Flagyl 500 Mg (Pmx)) 100 ml @ 100 mls/hr Q8 IVPB Last administered on 12/25/16 06:03; Admin Dose 100 MLS/HR; Start 12/23/16 at 16:00 Vitamin A/Vitamin D (Vitamin A & D Oint) 1 applic BID PRN TOP NOTE; Start 12/24 at 14:30 JANNETTE LAZCANO MD Dec 25, 2016 14:22
--- NOTE | 2016-12-25 16:21 | PN ---
DATE: 12/25/2016 SUBJECTIVE: No acute events overnight. The patient is lying comfortably in bed. She is minimally communicative. No fevers. No labs this morning. ANTIMICROBIALS 1. Meropenem. 2. Flagyl. 3. IV doxycycline. 4. She is also getting topical Bactroban to nares. OBJECTIVE: GENERAL: Fragile, chronically ill-appearing, elderly woman who is in no distress. HEENT: Head atraumatic, normocephalic. Sclerae anicteric. Buccal mucosa dry. NECK: Supple. CHEST: Rise symmetrical. Breath sounds diminished. HEART: S1, S2. ABDOMEN: Soft. Bowel tones present. EXTREMITIES: Without cyanosis. SKIN: Severe excoriation on her perianal area as well as upper thighs. ASSESSMENT 1. Severe sepsis with ongoing leukocytosis. 2. Healthcare-associated pneumonia with ongoing aspiration. 3. Dysphagia. 4. Status post urinary tract infection. 5. Status post coagulase-negative Staphylococcus bacteremia, possibly contaminant, on doxycycline. 6. Acute on chronic kidney disease. 7. Anemia. 8. Gouty arthritis. 9. Methicillin-resistant Staphylococcus aureus nares colonization. PLAN: The patient remains clinically unchanged. She had multiple unsuccessful attempts to put in a n NG tube. GI evaluation pending. Would recommend to insert Day catheter given significant peria nal excoriation. Follow chest x-ray in a.m. Follow labs in a.m. Also consider PICC line placement . Dictated By: BRADLEY PRATER CIRCULATION CREW LEADER for [employer] OSMAN/MARIEL Conf#: [id number] DID#: [id number]
--- NOTE | 2016-12-25 19:27 | CONS ---
DATE OF ADMISSION: 12/14/2016 DATE OF CONSULTATION: TYPE OF CONSULTATION: Gastroenterology. Dear Jannette, Thank you for asking me to see Ms. Arechiga in GI consultation. As you know, the patient is an 89-year-old white female admitted to the hospital on 12/14/2016 with a history of severe anemia, dehydration, prerenal azotemia, and also she had urosepsis. GI consulta tion is requested because of the fact patient is unable to take any feeding by mouth, not even medic ations by mouth. She is alert but she is incoherent. She has evidence of urinary tract infection b ased on the H and P, history of prerenal azotemia, hypertension, gout, history of coronary artery di sease, decubitus stage I ulcers. The patient is unable to give me any additional history at this time. She also has contractures and hypertension. PHYSICAL EXAMINATION: GENERAL: The patient is an 89-year-old white female who at this time is alert and is very thin and cachectic. VITAL SIGNS: She is afebrile. CARDIOVASCULAR: Normal heart sounds. RESPIRATORY: Normal breath sounds. ABDOMEN: Soft abdomen with no palpable masses, no tenderness, no distention. LABORATORY WORKUP: WBC count 16,900, hemoglobin 8.7, platelet count is 511,000. Prothrombin time i s 12.7. Chemistry shows potassium 4.1, sodium 146, BUN 60, creatinine 2.11. The chest x-ray shows NG tube in upper esophagus. CLINICAL IMPRESSION: The patient presenting with: 1. History of difficulty in swallowing. 2. Prerenal azotemia, and her albumin is very low of 2.1. 3. Weight loss. 4. Cachexia. 5. Malnutrition. 6. Gouty arthritis. 7. Hypertension. 8. Coronary artery disease. PLAN: At this time, I agree with you that patient would benefit from a percutaneous endoscopic sandy rostomy tube placement for long-term nutritional support. Once again, doctor, thank you for this consultation. Dictated By: ISMAEL MCKEON/MARIEL Conf#: [id number] DID#: [id number] CC: JANNETTE LAZCANO MD;*EndCC*
[2016-12-26] VITALS (13 sets, daily range): BP systolic 132–158; BP diastolic 61–83; PULSE 90–110; RESP 17–24
[2016-12-26] MEDS: PANTOPRAZOLE (EC) 40 MG TAB PO SCH (05:29)
[2016-12-26] MEDS: metroNIDAZOLE 500 MG/NS (PMX) 100 ML IVPB SCH ×3 (05:30→22:10)
--- NOTE | 2016-12-26 08:23 | RADRPT ---
PROCEDURE: XR Chest. CLINICAL INDICATION: Shortness of breath TECHNIQUE: A single portable view of the chest was obtained. COMPARISON: 12/23/2016 from 04:08 p.m. FINDINGS: The nasogastric tube has been removed. The aorta is tortuous and atherosclerotic. The cardiomedias tinal silhouette is otherwise enlarged and is stable. Diffuse pulmonary venous congestion is seen w ith likely underlying pulmonary edema and is mildly increased. Bilateral pleural effusions are again noted and are stable. The soft tissues and osseous structures demonstrate benign age related senesc ent changes. IMPRESSION: 1. Interval removal of the nasogastric tube. 2. Radiographic findings of congestive heart failure again seen with mild increase in the pulmonary vascular congestion and pulmonary edema. RPTAT: HPNM Physician Emily Date Time Electronically viewed and signed by Physician Emily on 12/26/2016 08:23 /
[2016-12-26] MEDS: MEROPENEM 500 MG/100 ML (PMX) 100 ML IVPB SCH ×2 (08:47→22:06)
[2016-12-26 09:43] LABS: POTASSIUM 3.9 mmol/L (3.5-5.1)
[2016-12-26 09:45] LABS: CREATININE 1.79 mg/dl (0.44-1.00)
[2016-12-26 09:46] LABS: CALCIUM 9.1 mg/dl (8.4-10.2); HEMATOCRIT 26.6 % (37.0-47.0); HEMOGLOBIN 8.7 g/dl (12.0-16.0); MEAN CORPUSCULAR HEMOGLOBIN 28.4 pg (29.0-33.0); MEAN CORPUSCULAR HGB CONC 32.8 g/dl (32.0-37.0); MEAN CORPUSCULAR VOLUME 86.7 fl (82.0-101.0); MEAN PLATELET VOLUME 6.5 fl (7.4-10.4); PLATELET COUNT 529 10^3/UL (140-440); RED BLOOD COUNT 3.07 10^6/ul (4.20-5.40); RED CELL DISTRIBUTION WIDTH 26.3 % (11.5-14.5); UNCORRECTED WBC 15.9 10^3/ul (4.8-10.8); WHITE BLOOD COUNT 15.9 10^3/ul (4.8-10.8)
[2016-12-26 09:57] LABS: CONDITION 1; LH ANALYZER COMMENTS 1; SUSPECT 1
[2016-12-26] MEDS: MULTIVITAMINS THERAPEUTIC TAB PO SCH (10:08)
[2016-12-26] MEDS: CALCIUM CARBONATE 1.25 GM TAB PO SCH ×3 (10:08→22:10)
[2016-12-26] MEDS: INDOMETHACIN 25 MG PO SCH (10:08)
[2016-12-26] MEDS: VERAPAMIL 80 MG TAB PO SCH ×2 (10:08→22:10)
[2016-12-26] MEDS: ASCORBIC ACID 500 MG TAB PO SCH (10:08)
[2016-12-26] MEDS: ALLOPURINOL 300 MG TAB PO SCH (10:09)
[2016-12-26] MEDS: CHOLECALCIFEROL 1,000 UNIT TAB PO SCH (10:09)
[2016-12-26] MEDS: SERTRALINE 50 MG TAB PO SCH (10:09)
[2016-12-26] MEDS: DOXYCYCLINE 100 MG in SOD CHLORIDE 0.9% 250 ML IVPB SCH ×2 (10:16→22:55)
[2016-12-26] MEDS: MUPIROCIN 2% 22 GM OINT TOP SCH ×2 (10:17→22:11)
[2016-12-26] MEDS: COLLAGENASE 30 GM TUBE TOP SCH (10:20)
[2016-12-26 11:46] LABS: EOSINOPHILS # 0.3 10^3/ul (0.0-0.5); LYMPHOCYTES # 1.7 10^3/ul (0.8-2.9); NEUTROPHIL # 12.7 10^3/ul (1.6-7.5)
[2016-12-26] MEDS ORDERED: PROPOFOL 20 ML ONE (14:45)
[2016-12-26] MEDS ORDERED: CEFAZOLIN 1 GM/50 ML (PMX) 50 ML IVPB ONE (14:58)
--- NOTE | 2016-12-26 14:59 | PN ---
Date/Time of Note Date/Time of Note DATE: 12/26/16 TIME: 14:57 Assessment/Plan VTE Prophylaxis VTE Prophylaxis Intervention: SCD's Lines/Catheters IV [facility]ter Type (from [facility]): Peripheral IV Urinary Cath still in place: Yes Assessment/Plan Chief Complaint/Hosp Course Urosepsis Dehydration Prerenal azothemia HTN gouty arthritis CAD/ [place] Mild cognitive Impairment Decubitus Stage I Problems: Subjective 24 Hr Interval Summary Free Text/Dictation Remain afebrile. . Muchmore alert today. Pre-op for PEG now Exam/Review of Systems Vital Signs Vitals Vital Signs Date Time Temp Pulse Resp B/P Pulse Ox O2 Delivery O2 Flow Rate FiO2 12/26/16 12:54 105 12/26/16 11:44 97.6 18 145/79 98 12/26/16 11:11 Nasal Cannula 2.0 12/26/16 05:57 28 Intake and Output 12/25/16 12/25/16 12/26/16 15:00 23:00 07:00 Intake Total 850 ml Output Total 1100 ml Balance -250 ml Results Result Diagram: 12/26/16 0910 12/26/16 0910 Results 24 hrs Laboratory Tests Test 12/26/16 09:10 Anion Gap 20 H Band Neutrophils % 1.0 Blood Morphology Comment Blood Urea Nitrogen 51 H Calcium Level 9.1 Carbon Dioxide Level 15 L Chloride Level 122 H Creatinine 1.79 H Differential Comment MANUAL DIFF Eosinophils # 0.3 Eosinophils % 2.0 Glucose Level 88 Hematocrit 26.6 L Hemoglobin 8.7 L Lymphocytes # 1.7 Lymphocytes % 11.0 L Mean Corpuscular Hemoglobin 28.4 L Mean Corpuscular Hemoglobin Concent 32.8 Mean Corpuscular Volume 86.7 Mean Platelet Volume 6.5 L Monocytes # 1.0 H Monocytes % 6.0 Neutrophils # 12.7 H Neutrophils % 80.0 H Platelet Count 529 H Potassium Level 3.9 Red Blood Count 3.07 L Red Cell Distribution Width 26.3 H Sodium Level 153 H White Blood Count 15.9 H Medications Medications Current Medications Dextrose/Sodium Chloride (D5-1/2ns) 1,000 ml @ 50 mls/hr Q20H IV Last administered on 12/25/16t 21:06; Admin Dose 50 MLS/HR; Start 12/14/16 at 16:30 Allopurinol (Zyloprim) 300 mg DAILY PO Last administered on 12/22/16 09:22; Admin Dose 300 MG; Start 12/15/16 at 09:00 Ascorbic Acid (Vitamin C) 500 mg DAILY PO Last administered on 12/22/16 09:22 ; Admin Dose 500 MG; Start 12/15/16 at 09:00 Cholecalciferol (Vitamin D) 2,000 unit DAILY PO Last administered on 12/22/16 09:22; Admin Dose 2,000 UNIT; Start 12/15/16 at 09:00 Magnesium Hydroxide (Milk Of Mag) 30 ml Q24H PRN PO CONSTIPATION; Start at 16:30 Multivitamins Therapeutic (Theragran) 1 tab DAILY PO Last administered on 09:22; Admin Dose 1 TAB; Start 12/15/16 at 09:00 Sertraline HCl (Zoloft) 50 mg DAILY PO Last administered on 12/22/16 09:22; Admin Dose 50 MG; Start 12/15/16 at 09:00 Calcium Carbonate (Oyster Shell Calcium) 1.25 gm TID PO Last administered on 09:22; Admin Dose 1.25 GM; Start 12/14/16 at 17:00 Pantoprazole (Protonix Tab) 40 mg DAILY@06 PO Last administered on 12/20/16 05 :51; Admin Dose 40 MG; Start 12/15/16 at 06:00 Tramadol HCl (Ultram) 50 mg Q12H PRN PO PAIN LEVEL 6-10 Last administered on 15:38; Admin Dose 50 MG; Start 12/14/16 at 18:30 Acetaminophen (Tylenol Tab) 650 mg Q6H PRN PO PAIN AND OR ELEVATED TEMP; Start 12/14/16 at 18:30 Mupirocin (Bactroban) 1 applic BID TOP Last administered on 12/26/16 10:17; Admin Dose 1 APPLIC; Start 12/16/16 at 21:00 Verapamil HCl 80 mg 80 mg BID PO Last administered on 12/22/16 09:22; Admin Dose 80 MG; Start 12/17/16 at 15:00 Doxycycline Hyclate/Sodium Chloride (Vibramycin/NS) 250 ml @ 250 mls/hr Q12 IVPB Last administered on 12/26/16 10:16; Admin Dose 250 MLS/HR; Start at 21:00 Collagenase (Santyl) 1 applic DAILY TOP Last administered on 12/26/16 10:20; Admin Dose 1 APPLIC; Start 12/20/16 at 16:30 Indomethacin 25 mg 25 mg DAILY PO ; Start 12/23/16 at 09:00 Meropenem 100 ml @ 200 mls/hr Q12 IVPB Last administered on 12/26/16 08:47; Admin Dose 200 MLS/HR; Start 12/23/16 at 15:00 Metronidazole (Flagyl 500 Mg (Pmx)) 100 ml @ 100 mls/hr Q8 IVPB Last administered on 12/26/16 13:08; Admin Dose 100 MLS/HR; Start 12/23/16 at 16:00 Vitamin A/Vitamin D (Vitamin A & D Oint) 1 applic BID PRN TOP NOTE; Start 12/24 at 14:30 JANNETTE LAZCANO MD Dec 26, 2016 14:59
[2016-12-26] MEDS: DEXTROSE 5%-0.45% NACL 1,000 ML IV SCH (17:06)
[2016-12-27] VITALS (11 sets, daily range): BP systolic 117–131; BP diastolic 56–70; PULSE 79–95; RESP 18–22
--- NOTE | 2016-12-27 03:15 | GILP ---
DATE OF PROCEDURE: NAME OF PROCEDURE: Esophagogastroduodenoscopy, percutaneous endoscopic gastrostomy tube placement. PREOPERATIVE DIAGNOSIS: Patient presenting with a history of difficulty in swallowing and she has h ad weight loss. POSTOPERATIVE DIAGNOSIS: Patient presenting with a history of difficulty in swallowing and she has had weight loss. INDICATIONS: Procedure performed at this time to create access for long-term nutritional support. DESCRIPTION OF PROCEDURE: After informed written consent was obtained, the patient was asked to lie in the supine position. Intravenous anesthesia was given by anesthesiologist, Dr. Gooden. When the patient became somnolent, the Olympus video upper endoscope was introduced into the oropharynx, then into the esophagus. Esophagus appeared normal. Stomach appeared normal. Duodenum appeared n ormal. At this time, gastroscope was withdrawn to the level of the gastric cavity. The anterior ab dominal wall was prepared with Betadine and alcohol, 2 mL of 2% Xylocaine was infiltrated at the end oscopic illuminating site, and a 5 mm incision was made at this spot. Through this incision, trocar was inserted into the stomach and stylet was removed. Guidewire was inserted into the stomach, the guidewire was grabbed with a polypectomy snare, and this was brought out through the mouth along wi th the endoscope. To this end of the guidewire, a #20 Microvasive G-tube was tied in a loop fashion , and then it was brought out through the abdominal wall incision. Retention bumper was placed over the G-tube close to the skin. Tapered end of the gastrostomy tube was cut, the adapter was placed, and the procedure was terminated. PLAN: Recommend starting G-tube feeding in a.m. Dictated By: ISMAEL MCKEON/NTS Conf#: [id number] DID#: [id number] CC: JANNETTE LAZCANO MD; ISMAEL RIZZO MD;*End*
[2016-12-27] MEDS: DEXTROSE 5%-0.45% NACL 1,000 ML IV SCH (04:38)
[2016-12-27] MEDS: PANTOPRAZOLE (EC) 40 MG TAB PO SCH (05:54)
[2016-12-27] MEDS: metroNIDAZOLE 500 MG/NS (PMX) 100 ML IVPB SCH ×2 (05:54→12:33)
--- NOTE | 2016-12-27 06:40 | PN ---
DATE: 12/26/2016 SUBJECTIVE: No acute changes. The patient is lying comfortably in bed. Day was inserted and uri ne looks slightly with pyuria, no fevers. WBC today 15.9, platelets 529, neutrophils 80, bands 1, lymph 11, monos 6, BUN 51, creatinine 1.79. MICROBIOLOGY: No new results. ANTIMICROBIALS: The patient is on: 1. Merrem 2. Vancomycin. 3. IV doxycycline. PHYSICAL EXAMINATION: GENERAL: This is a fragile, elderly woman who is lying comfortably in bed. HEENT: Head atraumatic, normocephalic. Sclerae anicteric. Buccal mucosa dry. NECK: Supple. CHEST: Rise symmetrical. Breath sounds diminished to bases. HEART: S1, S2. ABDOMEN: Soft, bowel tones present. EXTREMITIES: Without cyanosis. ASSESSMENT: 1. Sepsis. 2. Urinary tract infection with urinary retention. 3. Acute on chronic kidney disease. 4. Anal excoriation. 5. Status post coagulase-negative staph bacteremia. 6. Healthcare-associated pneumonia with ongoing aspiration. 7. Dysphagia. 8. Methicillin-resistant Staphylococcus aureus nares colonization on Bactroban to nares. 9. Gouty arthritis. PLAN: The patient remains stable. White blood cell count tracing down. Renal function also improv ing. She is being seen by Dr. Mueller in gastroenterology consultation. Plan for percutaneous endos copic gastrostomy tube placement. Dictated By: BRADLEY PRATER BIN PACKER for BAHMAN OSMAN/MARIEL Conf#: [id number] DID#: [id number]
[2016-12-27] MEDS: MEROPENEM 500 MG/100 ML (PMX) 100 ML IVPB SCH ×2 (09:05→20:55)
[2016-12-27] MEDS: MULTIVITAMINS THERAPEUTIC TAB PO SCH (09:06)
[2016-12-27] MEDS: DOXYCYCLINE 100 MG in SOD CHLORIDE 0.9% 250 ML IVPB SCH ×2 (09:06→20:55)
[2016-12-27] MEDS: CALCIUM CARBONATE 1.25 GM TAB PO SCH ×3 (09:06→20:54)
[2016-12-27] MEDS: ALLOPURINOL 300 MG TAB PO SCH (09:07)
[2016-12-27] MEDS: ASCORBIC ACID 500 MG TAB PO SCH (09:07)
[2016-12-27] MEDS: INDOMETHACIN 25 MG PO SCH (09:07)
[2016-12-27] MEDS: CHOLECALCIFEROL 1,000 UNIT TAB PO SCH (09:07)
[2016-12-27] MEDS: SERTRALINE 50 MG TAB PO SCH (09:07)
[2016-12-27] MEDS: VERAPAMIL 80 MG TAB PO SCH ×2 (09:07→20:55)
[2016-12-27] MEDS: COLLAGENASE 30 GM TUBE TOP SCH (09:13)
[2016-12-27] MEDS: MUPIROCIN 2% 22 GM OINT TOP SCH ×2 (09:13→20:56)
--- NOTE | 2016-12-27 15:12 | CONS ---
Date/Time of Note Date/Time of Note DATE: 12/27/16 TIME: 15:10 Assessment/Plan Assessment/Plan Chief Complaint/Hosp Course SUBJECTIVE: No acute changes. The patient is lying comfortably in bed. No fevers. Started on TF ANTIMICROBIALS: The patient is on: 1. Merrem 2. Vancomycin. 3. IV doxycycline. PHYSICAL EXAMINATION: GENERAL: This is a fragile, elderly woman who is lying comfortably in bed. HEENT: Head atraumatic, normocephalic. Sclerae anicteric. Buccal mucosa dry. NECK: Supple. CHEST: Rise symmetrical. Breath sounds diminished to bases. HEART: S1, S2. ABDOMEN: Soft, bowel tones present. EXTREMITIES: Without cyanosis. ASSESSMENT: 1. Sepsis. 2. Urinary tract infection with urinary retention, s/p Day. 3. Acute on chronic kidney disease. 4. Perianal excoriation. 5. Status post coagulase-negative staph bacteremia. 6. Healthcare-associated pneumonia with ongoing aspiration. 7. Dysphagia. 8. Methicillin-resistant Staphylococcus aureus nares colonization on Bactroban to nares. 9. Gouty arthritis. PLAN: The patient remains stable. S/p PEG, tolerates TF, will repeat urine cx, continue abx, f/u labs in am DW staff Problems: Consultation Date/Type/Reason Admit Date/Time Dec 14, 2016 at 14:52 Initial Consult Date Type of Consultation: ID [id number] HR Interval Summary Subjective hx not possible: pt non-verbal Exam/Review of Systems Vital Signs Vitals Vital Signs Date Time Temp Pulse Resp B/P Pulse Ox O2 Delivery O2 Flow Rate FiO2 12/27/16 15:09 98.3 87 22 129/60 96 12/26/16 22:00 Nasal Cannula 1.0 12/26/16 05:57 28 Intake and Output 12/26/16 12/26/16 12/27/16 15:00 23:00 07:00 Intake Total 850 ml 0 ml Output Total 1100 ml 800 ml Balance -250 ml -800 ml Results Result Diagram: 12/26/16 0910 12/26/16 0910 Medications Medications Current Medications Dextrose/Sodium Chloride (D5-1/2ns) 1,000 ml @ 50 mls/hr Q20H IV Last administered on 12/27/16t 04:38; Admin Dose 50 MLS/HR; Start 12/14/16 at 16:30 Allopurinol (Zyloprim) 300 mg DAILY PO Last administered on 12/27/16 09:07; Admin Dose 300 MG; Start 12/15/16 at 09:00 Ascorbic Acid (Vitamin C) 500 mg DAILY PO Last administered on 12/27/16 09:07; Admin Dose 500 MG; Start 12/15/16 at 09:00 Cholecalciferol (Vitamin D) 2,000 unit DAILY PO Last administered on 12/27/16 09:07; Admin Dose 2,000 UNIT; Start 12/15/16 at 09:00 Magnesium Hydroxide (Milk Of Mag) 30 ml Q24H PRN PO CONSTIPATION; Start at 16:30 Multivitamins Therapeutic (Theragran) 1 tab DAILY PO Last administered on 09:06; Admin Dose 1 TAB; Start 12/15/16 at 09:00 Sertraline HCl (Zoloft) 50 mg DAILY PO Last administered on 12/27/16 09:07; Admin Dose 50 MG; Start 12/15/16 at 09:00 Calcium Carbonate (Oyster Shell Calcium) 1.25 gm TID PO Last administered on 12:33; Admin Dose 1.25 GM; Start 12/14/16 at 17:00 Pantoprazole (Protonix Tab) 40 mg DAILY@06 PO Last administered on 12/20/16 05 :51; Admin Dose 40 MG; Start 12/15/16 at 06:00 Tramadol HCl (Ultram) 50 mg Q12H PRN PO PAIN LEVEL 6-10 Last administered on 15:38; Admin Dose 50 MG; Start 12/14/16 at 18:30 Acetaminophen (Tylenol Tab) 650 mg Q6H PRN PO PAIN AND OR ELEVATED TEMP; Start 12/14/16 at 18:30 Mupirocin (Bactroban) 1 applic BID TOP Last administered on 12/27/16 09:13; Admin Dose 1 APPLIC; Start 12/16/16 at 21:00 Verapamil HCl 80 mg 80 mg BID PO Last administered on 12/27/16 09:07; Admin Dose 80 MG; Start 12/17/16 at 15:00 Doxycycline Hyclate/Sodium Chloride (Vibramycin/NS) 250 ml @ 250 mls/hr Q12 IVPB Last administered on 12/27/16 09:06; Admin Dose 250 MLS/HR; Start at 21:00 Collagenase (Santyl) 1 applic DAILY TOP Last administered on 12/27/16 09:13; Admin Dose 1 APPLIC; Start 12/20/16 at 16:30 Indomethacin 25 mg 25 mg DAILY PO Last administered on 12/27/16 09:07; Admin Dose 25 MG; Start 12/23/16 at 09:00 Meropenem 100 ml @ 200 mls/hr Q12 IVPB Last administered on 12/27/16 09:05; Admin Dose 200 MLS/HR; Start 12/23/16 at 15:00 Metronidazole (Flagyl 500 Mg (Pmx)) 100 ml @ 100 mls/hr Q8 IVPB Last administered on 12/27/16 12:33; Admin Dose 100 MLS/HR; Start 12/23/16 at 16:00 Vitamin A/Vitamin D (Vitamin A & D Oint) 1 applic BID PRN TOP NOTE; Start 12/24 at 14:30 BRADLEY PRATER NP Dec 27, 2016 15:12
--- NOTE | 2016-12-27 15:27 | PN ---
Date/Time of Note Date/Time of Note DATE: 12/27/16 TIME: 15:24 Assessment/Plan VTE Prophylaxis VTE Prophylaxis Intervention: SCD's Lines/Catheters IV Catheter Type (from Nrs): Peripheral IV Urinary Cath still in place: Yes Assessment/Plan Chief Complaint/Hosp Course Urosepsis Dehydration Prerenal azothemia HTN gouty arthritis CAD/ [place] Mild cognitive Impairment Decubitus Stage I Problems: Subjective 24 Hr Interval Summary Free Text/Dictation S/P PEG, receiving nutrition and IV Fluid. Spoken to SW about placement in a halfway Exam/Review of Systems Vital Signs Vitals Vital Signs Date Time Temp Pulse Resp B/P Pulse Ox O2 Delivery O2 Flow Rate FiO2 12/27/16 15:09 98.3 87 22 129/60 96 12/26/16 22:00 Nasal Cannula 1.0 12/26/16 05:57 28 Intake and Output 12/26/16 12/26/16 12/27/16 15:00 23:00 07:00 Intake Total 850 ml 0 ml Output Total 1100 ml 800 ml Balance -250 ml -800 ml Results Result Diagram: 12/26/16 0910 12/26/16 0910 Medications Medications Current Medications Dextrose/Sodium Chloride (D5-1/2ns) 1,000 ml @ 50 mls/hr Q20H IV Last administered on 12/27/16 04:38; Admin Dose 50 MLS/HR; Start 12/14/16 at 16:30 Allopurinol (Zyloprim) 300 mg DAILY PO Last administered on 12/27/16 09:07; Admin Dose 300 MG; Start 12/15/16 at 09:00 Ascorbic Acid (Vitamin C) 500 mg DAILY PO Last administered on 12/27/16 09:07; Admin Dose 500 MG; Start 12/15/16 at 09:00 Cholecalciferol (Vitamin D) 2,000 unit DAILY PO Last administered on 12/27/16 09:07; Admin Dose 2,000 UNIT; Start 12/15/16 at 09:00 Magnesium Hydroxide (Milk Of Mag) 30 ml Q24H PRN PO CONSTIPATION; Start at 16:30 Multivitamins Therapeutic (Theragran) 1 tab DAILY PO Last administered on 09:06; Admin Dose 1 TAB; Start 12/15/16 at 09:00 Sertraline HCl (Zoloft) 50 mg DAILY PO Last administered on 12/27/16 09:07; Admin Dose 50 MG; Start 12/15/16 at 09:00 Calcium Carbonate (Oyster Shell Calcium) 1.25 gm TID PO Last administered on 12:33; Admin Dose 1.25 GM; Start 12/14/16 at 17:00 Pantoprazole (Protonix Tab) 40 mg DAILY@06 PO Last administered on 12/20/16 05 :51; Admin Dose 40 MG; Start 12/15/16 at 06:00 Tramadol HCl (Ultram) 50 mg Q12H PRN PO PAIN LEVEL 6-10 Last administered on 15:38; Admin Dose 50 MG; Start 12/14/16 at 18:30 Acetaminophen (Tylenol Tab) 650 mg Q6H PRN PO PAIN AND OR ELEVATED TEMP; Start 12/14/16 at 18:30 Mupirocin (Bactroban) 1 applic BID TOP Last administered on 12/27/16 09:13; Admin Dose 1 APPLIC; Start 12/16/16 at 21:00 Verapamil HCl 80 mg 80 mg BID PO Last administered on 12/27/16 09:07; Admin Dose 80 MG; Start 12/17/16 at 15:00 Doxycycline Hyclate/Sodium Chloride (Vibramycin/NS) 250 ml @ 250 mls/hr Q12 IVPB Last administered on 12/27/16 09:06; Admin Dose 250 MLS/HR; Start at 21:00 Collagenase (Santyl) 1 applic DAILY TOP Last administered on 12/27/16 09:13; Admin Dose 1 APPLIC; Start 12/20/16 at 16:30 Indomethacin 25 mg 25 mg DAILY PO Last administered on 12/27/16 09:07; Admin Dose 25 MG; Start 12/23/16 at 09:00 Meropenem 100 ml @ 200 mls/hr Q12 IVPB Last administered on 12/27/16 09:05; Admin Dose 200 MLS/HR; Start 12/23/16 at 15:00 Metronidazole (Flagyl 500 Mg (Pmx)) 100 ml @ 100 mls/hr Q8 IVPB Last administered on 12/27/16 12:33; Admin Dose 100 MLS/HR; Start 12/23/16 at 16:00 Vitamin A/Vitamin D (Vitamin A & D Oint) 1 applic BID PRN TOP NOTE; Start 12/24 at 14:30 JANNETTE LAZCANO MD Dec 27, 2016 15:26
[2016-12-27] MEDS: traMADol 50 MG TAB PO PRN (20:55)
[2016-12-28 00:39] VITALS: BP 123/64; PULSE 93; RESP 20
[2016-12-28] MEDS: metroNIDAZOLE 500 MG/NS (PMX) 100 ML IVPB SCH ×4 (00:43→23:12)
[2016-12-28] MEDS: PANTOPRAZOLE (EC) 40 MG TAB PO SCH (06:36)
[2016-12-28 06:54] VITALS: BP 118/85; RESP 18
[2016-12-28 07:51] LABS: POTASSIUM 3.5 mmol/L (3.5-5.1)
[2016-12-28 07:53] LABS: CREATININE 1.66 mg/dl (0.44-1.00)
[2016-12-28 07:55] LABS: CALCIUM 9.4 mg/dl (8.4-10.2)
[2016-12-28 08:27] LABS: HEMATOCRIT 26.7 % (37.0-47.0); HEMOGLOBIN 8.6 g/dl (12.0-16.0); RED BLOOD COUNT 3.14 10^6/ul (4.20-5.40); UNCORRECTED WBC 16.7 10^3/ul (4.8-10.8); WHITE BLOOD COUNT 16.7 10^3/ul (4.8-10.8)
[2016-12-28 08:28] LABS: BASOPHILS % 0.3 % (0.0-2.0); EOSINOPHILS % 8.3 % (0.0-7.0); LYMPHOCYTES % 9.8 % (15.0-51.0); MEAN CORPUSCULAR HEMOGLOBIN 27.4 pg (29.0-33.0); MEAN CORPUSCULAR HGB CONC 32.2 g/dl (32.0-37.0); MEAN PLATELET VOLUME 9.3 fl (7.4-10.4); MONOCYTES % 12.1 % (0.0-11.0); NEUTROPHIL # 11.4 10^3/ul (1.6-7.5); NEUTROPHILS % 68.3 % (39.0-77.0); NUCLEATED RED BLOOD CELLS% 0.2 /100WBC (0.0-0.0); PLATELET COUNT 413 10^3/UL (140-440); RED CELL DISTRIBUTION WIDTH 23.8 % (11.5-14.5)
[2016-12-28 08:29] LABS: BASOPHIL # 0.1 10^3/ul (0.0-0.1); EOSINOPHILS # 1.4 10^3/ul (0.0-0.5); LYMPHOCYTES # 1.6 10^3/ul (0.8-2.9)
[2016-12-28] MEDS: DEXTROSE 5% 1,000 ML IV SCH ×2 (08:43→21:50)
[2016-12-28] MEDS: COLLAGENASE 30 GM TUBE TOP SCH (09:00)
--- NOTE | 2016-12-28 09:36 | PN ---
Date/Time of Note Date/Time of Note DATE: 12/28/16 TIME: 09:32 Assessment/Plan VTE Prophylaxis VTE Prophylaxis Intervention: SCD's Lines/Catheters [facility] Peripheral IV Urinary Cath still in place: Yes Assessment/Plan Chief Complaint/Hosp Course Urosepsis Dehydration Prerenal azothemia HTN gouty arthritis CAD/ [place] Mild cognitive Impairment Decubitus Stage I Problems: Subjective 24 Hr Interval Summary Free Text/Dictation Less alert today. on enteral feeding. NA 161, WBC increased. Stage II Decub. ulcer. Remained afebrile. Would like to get input from ID as to duration of ABX. Prep. being made to care home. UA result noted Exam/Review of Systems Vital Signs Vitals Vital Signs Date Time Temp Pulse Resp B/P Pulse Ox O2 Delivery O2 Flow Rate FiO2 12/28/16 06:54 97.9 78 18 118/85 97 12/28/16 04:35 2.0 12/28/16 00:39 Nasal Cannula 12/26/16 05:57 28 Intake and Output 12/27/16 12/27/16 12/28/16 15:00 23:00 07:00 Intake Total 680 ml 680 ml Output Total 550 ml Balance 680 ml 130 ml Results Result Diagram: 12/28/16 0612 12/28/16 0612 Results 24 hrs Laboratory Tests Test 12/28/16 06:12 Anion Gap 17 H Basophils # 0.1 Basophils % 0.3 Blood Urea Nitrogen 54 H Calcium Level 9.4 Carbon Dioxide Level 21 Chloride Level 127 H Creatinine 1.66 H Eosinophils # 1.4 H Eosinophils % 8.3 H Glucose Level 95 Hematocrit 26.7 L Hemoglobin 8.6 L Lymphocytes # 1.6 Lymphocytes % 9.8 L Mean Corpuscular Hemoglobin 27.4 L Mean Corpuscular Hemoglobin Concent 32.2 Mean Corpuscular Volume 85.0 Mean Platelet Volume 9.3 # Monocytes # 2.0 H Monocytes % 12.1 H Neutrophils # 11.4 H Neutrophils % 68.3 Nucleated Red Blood Cells # 0.0 Nucleated Red Blood Cells % 0.2 H Platelet Count 413 # Potassium Level 3.5 Red Blood Count 3.14 L Red Cell Distribution Width 23.8 H Sodium Level 161 *H White Blood Count 16.7 H Medications Medications Current Medications Allopurinol (Zyloprim) 300 mg DAILY PO Last administered on 12/27/16 09:07; Admin Dose 300 MG; Start 12/15/16 at 09:00 Ascorbic Acid (Vitamin C) 500 mg DAILY PO Last administered on 12/27/16 09:07; Admin Dose 500 MG; Start 12/15/16 at 09:00 Cholecalciferol (Vitamin D) 2,000 unit DAILY PO Last administered on 12/27/16 09:07; Admin Dose 2,000 UNIT; Start 12/15/16 at 09:00 Magnesium Hydroxide (Milk Of Mag) 30 ml Q24H PRN PO CONSTIPATION; Start at 16:30 Multivitamins Therapeutic (Theragran) 1 tab DAILY PO Last administered on 09:06; Admin Dose 1 TAB; Start 12/15/16 at 09:00 Sertraline HCl (Zoloft) 50 mg DAILY PO Last administered on 12/27/16 09:07; Admin Dose 50 MG; Start 12/15/16 at 09:00 Calcium Carbonate (Oyster Shell Calcium) 1.25 gm TID PO Last administered on 20:54; Admin Dose 1.25 GM; Start 12/14/16 at 17:00 Pantoprazole (Protonix Tab) 40 mg DAILY@06 PO Last administered on 12/28/16 06: 36; Admin Dose 40 MG; Start 12/15/16 at 06:00 Tramadol HCl (Ultram) 50 mg Q12H PRN PO PAIN LEVEL 6-10 Last administered on 20:55; Admin Dose 50 MG; Start 12/14/16 at 18:30 Acetaminophen (Tylenol Tab) 650 mg Q6H PRN PO PAIN AND OR ELEVATED TEMP; Start 12/14/16 at 18:30 Mupirocin (Bactroban) 1 applic BID TOP Last administered on 12/27/16 20:56; Admin Dose 1 APPLIC; Start 12/16/16 at 21:00 Verapamil HCl 80 mg 80 mg BID PO Last administered on 12/27/16 20:55; Admin Dose 80 MG; Start 12/17/16 at 15:00 Doxycycline Hyclate/Sodium Chloride (Vibramycin/NS) 250 ml @ 250 mls/hr Q12 IVPB Last administered on 12/27/16 20:55; Admin Dose 250 MLS/HR; Start at 21:00 Collagenase (Santyl) 1 applic DAILY TOP Last administered on 12/27/16 09:13; Admin Dose 1 APPLIC; Start 12/20/16 at 16:30 Indomethacin 25 mg 25 mg DAILY PO Last administered on 12/27/16 09:07; Admin Dose 25 MG; Start 12/23/16 at 09:00 Meropenem 100 ml @ 200 mls/hr Q12 IVPB Last administered on 12/27/16 20:55; Admin Dose 200 MLS/HR; Start 12/23/16 at 15:00 Metronidazole (Flagyl 500 Mg (Pmx)) 100 ml @ 100 mls/hr Q8 IVPB Last administered on 12/28/16 06:36; Admin Dose 100 MLS/HR; Start 12/23/16 at 16:00 Vitamin A/Vitamin D 1 applic 1 applic BID PRN TOP NOTE; Start 12/24/16 at 14:30 Dextrose (D5W) 1,000 ml @ 75 mls/hr [id number] IV Last administered on 12/28/16 08:43; Admin Dose 75 MLS/HR; Start 12/28/16 at 08:30 JANNETTE LAZCANO MD Dec 28, 2016 09:36
[2016-12-28 11:16] VITALS: BP 140/84; RESP 22
[2016-12-28] MEDS: CHOLECALCIFEROL 1,000 UNIT TAB PO SCH (11:29)
[2016-12-28] MEDS: MULTIVITAMINS THERAPEUTIC TAB PO SCH (11:30)
[2016-12-28] MEDS: ALLOPURINOL 300 MG TAB PO SCH (11:30)
[2016-12-28] MEDS: CALCIUM CARBONATE 1.25 GM TAB PO SCH ×3 (11:31→21:07)
[2016-12-28] MEDS: SERTRALINE 50 MG TAB PO SCH (11:31)
[2016-12-28] MEDS: INDOMETHACIN 25 MG PO SCH (11:31)
[2016-12-28] MEDS: ASCORBIC ACID 500 MG TAB PO SCH (11:31)
[2016-12-28] MEDS: VERAPAMIL 80 MG TAB PO SCH ×2 (11:32→21:07)
[2016-12-28] MEDS: MEROPENEM 500 MG/100 ML (PMX) 100 ML IVPB SCH ×2 (11:35→21:05)
[2016-12-28] MEDS: MUPIROCIN 2% 22 GM OINT TOP SCH ×2 (11:36→21:08)
[2016-12-28] MEDS: DOXYCYCLINE 100 MG in SOD CHLORIDE 0.9% 250 ML IVPB SCH ×2 (12:00→22:03)
[2016-12-28 13:16] VITALS: BP 122/65; RESP 20
--- NOTE | 2016-12-28 19:33 | CONS ---
Date/Time of Note Date/Time of Note DATE: 12/28/16 TIME: 19:32 Assessment/Plan Assessment/Plan Chief Complaint/Hosp Course SUBJECTIVE: No acute changes. The patient is lying comfortably in bed. No fevers. Tolerates TF ANTIMICROBIALS: The patient is on: 1. Merrem 2. Flagyl. 3. IV doxycycline. PHYSICAL EXAMINATION: GENERAL: This is a fragile, elderly woman who is lying comfortably in bed. HEENT: Head atraumatic, normocephalic. Sclerae anicteric. Buccal mucosa dry. NECK: Supple. CHEST: Rise symmetrical. Breath sounds diminished to bases. HEART: S1, S2. ABDOMEN: Soft, bowel tones present. EXTREMITIES: Without cyanosis. ASSESSMENT: 1. Sepsis. 2. Urinary tract infection with urinary retention, s/p Day. 3. Acute on chronic kidney disease. 4. Perianal excoriation. 5. Status post coagulase-negative staph bacteremia. 6. Healthcare-associated pneumonia with ongoing aspiration. 7. Dysphagia. 8. Methicillin-resistant Staphylococcus aureus nares colonization on Bactroban to nares. 9. Gouty arthritis. PLAN: The patient remains clinically unchanged, pending urine cx, continue abx , aspiration precautions, f/u labs in am DW staff Problems: Consultation Date/Type/Reason Admit Date/Time Dec 14, 2016 at 14:52 Type of Consultation: ID [id number] HR Interval Summary Subjective hx not possible: pt non-verbal Exam/Review of Systems Vital Signs Vitals Vital Signs Date Time Temp Pulse Resp B/P Pulse Ox O2 Delivery O2 Flow Rate FiO2 12/28/16 13:16 97.5 84 20 122/65 95 12/28/16 12:00 Nasal Cannula 2.0 12/26/16 05:57 28 Intake and Output 12/27/16 12/27/16 12/28/16 15:00 23:00 07:00 Intake Total 680 ml 680 ml Output Total 550 ml Balance 680 ml 130 ml Results Result Diagram: 12/28/16 0612 12/28/16 0612 Results 24 hrs Laboratory Tests Test 12/28/16 06:12 Anion Gap 17 H Basophils # 0.1 Basophils % 0.3 Blood Urea Nitrogen 54 H Calcium Level 9.4 Carbon Dioxide Level 21 Chloride Level 127 H Creatinine 1.66 H Eosinophils # 1.4 H Eosinophils % 8.3 H Glucose Level 95 Hematocrit 26.7 L Hemoglobin 8.6 L Lymphocytes # 1.6 Lymphocytes % 9.8 L Mean Corpuscular Hemoglobin 27.4 L Mean Corpuscular Hemoglobin Concent 32.2 Mean Corpuscular Volume 85.0 Mean Platelet Volume 9.3 # Monocytes # 2.0 H Monocytes % 12.1 H Neutrophils # 11.4 H Neutrophils % 68.3 Nucleated Red Blood Cells # 0.0 Nucleated Red Blood Cells % 0.2 H Platelet Count 413 # Potassium Level 3.5 Red Blood Count 3.14 L Red Cell Distribution Width 23.8 H Sodium Level 161 *H White Blood Count 16.7 H Medications Medications Current Medications Allopurinol (Zyloprim) 300 mg DAILY PO Last administered on 12/28/16 11:30; Admin Dose 300 MG; Start 12/15/16 at 09:00 Ascorbic Acid (Vitamin C) 500 mg DAILY PO Last administered on 12/28/16 11:31; Admin Dose 500 MG; Start 12/15/16 at 09:00 Cholecalciferol (Vitamin D) 2,000 unit DAILY PO Last administered on 12/28/16 11:29; Admin Dose 2,000 UNIT; Start 12/15/16 at 09:00 Magnesium Hydroxide (Milk Of Mag) 30 ml Q24H PRN PO CONSTIPATION; Start at 16:30 Multivitamins Therapeutic (Theragran) 1 tab DAILY PO Last administered on 11:30; Admin Dose 1 TAB; Start 12/15/16 at 09:00 Sertraline HCl (Zoloft) 50 mg DAILY PO Last administered on 12/28/16 11:31; Admin Dose 50 MG; Start 12/15/16 at 09:00 Calcium Carbonate (Oyster Shell Calcium) 1.25 gm TID PO Last administered on 15:08; Admin Dose 1.25 GM; Start 12/14/16 at 17:00 Pantoprazole (Protonix Tab) 40 mg DAILY@06 PO Last administered on 12/28/16 06: 36; Admin Dose 40 MG; Start 12/15/16 at 06:00 Tramadol HCl (Ultram) 50 mg Q12H PRN PO PAIN LEVEL 6-10 Last administered on 20:55; Admin Dose 50 MG; Start 12/14/16 at 18:30 Acetaminophen (Tylenol Tab) 650 mg Q6H PRN PO PAIN AND OR ELEVATED TEMP; Start 12/14/16 at 18:30 Mupirocin (Bactroban) 1 applic BID TOP Last administered on 12/28/16 11:36; Admin Dose 1 APPLIC; Start 12/16/16 at 21:00 Verapamil HCl 80 mg 80 mg BID PO Last administered on 12/28/16 11:32; Admin Dose 80 MG; Start 12/17/16 at 15:00 Doxycycline Hyclate/Sodium Chloride (Vibramycin/NS) 250 ml @ 250 mls/hr Q12 IVPB Last administered on 12/28/16 12:00; Admin Dose 250 MLS/HR; Start at 21:00 Collagenase (Santyl) 1 applic DAILY TOP Last administered on 12/28/16 09:00; Admin Dose 1 APPLIC; Start 12/20/16 at 16:30 Indomethacin 25 mg 25 mg DAILY PO Last administered on 12/28/16 11:31; Admin Dose 25 MG; Start 12/23/16 at 09:00 Meropenem 100 ml @ 200 mls/hr Q12 IVPB Last administered on 12/28/16 11:35; Admin Dose 200 MLS/HR; Start 12/23/16 at 15:00 Metronidazole (Flagyl 500 Mg (Pmx)) 100 ml @ 100 mls/hr Q8 IVPB Last administered on 12/28/16 15:08; Admin Dose 100 MLS/HR; Start 12/23/16 at 16:00 Vitamin A/Vitamin D 1 applic 1 applic BID PRN TOP NOTE; Start 12/24/16 at 14:30 Dextrose (D5W) 1,000 ml @ 75 mls/hr [id number] IV Last administered on 12/28/16 08:43; Admin Dose 75 MLS/HR; Start 12/28/16 at 08:30 BRADLEY PRATER NP Dec 28, 2016 19:33
[2016-12-28 20:36] VITALS: BP 149/75; RESP 16
[2016-12-28] MEDS: traMADol 50 MG TAB PO PRN (22:33)
[2016-12-29] MEDS: DEXTROSE 5% 1,000 ML IV SCH ×2 (04:20→11:10)
[2016-12-29] MEDS: PANTOPRAZOLE (EC) 40 MG TAB PO SCH (06:06)
[2016-12-29] MEDS: metroNIDAZOLE 500 MG/NS (PMX) 100 ML IVPB SCH ×3 (06:06→22:35)
[2016-12-29 06:49] LABS: HEMATOCRIT 26.9 % (37.0-47.0); MEAN CORPUSCULAR HEMOGLOBIN 28.5 pg (29.0-33.0); MEAN CORPUSCULAR HGB CONC 33.5 g/dl (32.0-37.0); MEAN CORPUSCULAR VOLUME 85.2 fl (82.0-101.0); MEAN PLATELET VOLUME 6.8 fl (7.4-10.4); PLATELET COUNT 370 10^3/UL (140-440); RED BLOOD COUNT 3.16 10^6/ul (4.20-5.40); RED CELL DISTRIBUTION WIDTH 28.1 % (11.5-14.5); UNCORRECTED WBC 21.6 10^3/ul (4.8-10.8); WHITE BLOOD COUNT 21.6 10^3/ul (4.8-10.8)
[2016-12-29 06:54] LABS: CONDITION 1; LH ANALYZER COMMENTS 1; SUSPECT 1
[2016-12-29 07:11] LABS: ALBUMIN 2.1 g/dl (3.3-4.9); POTASSIUM 3.3 mmol/L (3.5-5.1)
[2016-12-29 07:14] LABS: ALBUMIN/GLOBULIN RATIO 0.56; CALCIUM 9.3 mg/dl (8.4-10.2); CREATININE 1.51 mg/dl (0.44-1.00); TOTAL PROTEIN 5.8 g/dl (6.1-8.1)
--- NOTE | 2016-12-29 07:48 | PN ---
Date/Time of Note Date/Time of Note DATE: 12/29/16 TIME: 07:44 Assessment/Plan VTE Prophylaxis VTE Prophylaxis Intervention: SCD's Lines/Catheters IV [facility] Type (from [facility]): Peripheral IV Urinary Cath still in place: Yes Assessment/Plan Chief Complaint/Hosp Course Urosepsis Dehydration Prerenal azothemia HTN gouty arthritis CAD/ [place] Mild cognitive Impairment Decubitus Stage I Problems: Subjective 24 Hr Interval Summary Free Text/Dictation Alert this morning. Sacral decubitus is 3.5 4 CM Stage II, receiving Dextrose for HyperNA. remained afebrile. K low which being replaced. WBC is increased and Na decreased. Will discuss with ID . Exam/Review of Systems Vital Signs Vitals Vital Signs Date Time Temp Pulse Resp B/P Pulse Ox O2 Delivery O2 Flow Rate FiO2 12/28/16 23:18 2.0 12/28/16 20:36 98.2 80 16 149/75 96 12/28/16 20:00 Nasal Cannula 12/26/16 05:57 28 Intake and Output 12/28/16 12/28/16 12/29/16 15:00 23:00 07:00 Intake Total 960 ml 1805 ml Output Total 700 ml 400 ml Balance 260 ml 1405 ml Results Result Diagram: 12/29/16 0519 12/29/16 0519 Results 24 hrs Laboratory Tests Test 12/29/16 05:19 Alanine Aminotransferase (ALT/SGPT) 20 Albumin 2.1 L Albumin/Globulin Ratio 0.56 Alkaline Phosphatase 74 Anion Gap 16 Aspartate Amino Transf (AST/SGOT) 22 Blood Morphology Comment Blood Urea Nitrogen 52 H Calcium Level 9.3 Carbon Dioxide Level 20 L Chloride Level 121 H Creatinine 1.51 H Direct Bilirubin 0.00 Globulin 3.70 H Glucose Level 105 Hematocrit 26.9 L Hemoglobin 9.0 L Indirect Bilirubin 0.0 Mean Corpuscular Hemoglobin 28.5 L Mean Corpuscular Hemoglobin Concent 33.5 Mean Corpuscular Volume 85.2 Mean Platelet Volume 6.8 #L Platelet Count 370 Potassium Level 3.3 L Red Blood Count 3.16 L Red Cell Distribution Width 28.1 H Sodium Level 154 H Total Bilirubin 0.0 L Total Protein 5.8 L White Blood Count 21.6 #H Medications Medications Current Medications Allopurinol (Zyloprim) 300 mg DAILY PO Last administered on 12/28/16t 11:30; Admin Dose 300 MG; Start 12/15/16 at 09:00 Ascorbic Acid (Vitamin C) 500 mg DAILY PO Last administered on 12/28/16 11:31; Admin Dose 500 MG; Start 12/15/16 at 09:00 Cholecalciferol (Vitamin D) 2,000 unit DAILY PO Last administered on 12/28/16 11:29; Admin Dose 2,000 UNIT; Start 12/15/16 at 09:00 Magnesium Hydroxide (Milk Of Mag) 30 ml Q24H PRN PO CONSTIPATION; Start at 16:30 Multivitamins Therapeutic (Theragran) 1 tab DAILY PO Last administered on 11:30; Admin Dose 1 TAB; Start 12/15/16 at 09:00 Sertraline HCl (Zoloft) 50 mg DAILY PO Last administered on 12/28/16 11:31; Admin Dose 50 MG; Start 12/15/16 at 09:00 Calcium Carbonate (Oyster Shell Calcium) 1.25 gm TID PO Last administered on 21:07; Admin Dose 1.25 GM; Start 12/14/16 at 17:00 Pantoprazole (Protonix Tab) 40 mg DAILY@06 PO Last administered on 12/29/16 06: 06; Admin Dose 40 MG; Start 12/15/16 at 06:00 Tramadol HCl (Ultram) 50 mg Q12H PRN PO PAIN LEVEL 6-10 Last administered on 22:33; Admin Dose 50 MG; Start 12/14/16 at 18:30 Acetaminophen (Tylenol Tab) 650 mg Q6H PRN PO PAIN AND OR ELEVATED TEMP; Start 12/14/16 at 18:30 Mupirocin (Bactroban) 1 applic BID TOP Last administered on 12/28/16 21:08; Admin Dose 1 APPLIC; Start 12/16/16 at 21:00 Verapamil HCl 80 mg 80 mg BID PO Last administered on 12/28/16 21:07; Admin Dose 80 MG; Start 12/17/16 at 15:00 Doxycycline Hyclate/Sodium Chloride (Vibramycin/NS) 250 ml @ 250 mls/hr Q12 IVPB Last administered on 12/28/16 22:03; Admin Dose 250 MLS/HR; Start at 21:00 Collagenase (Santyl) 1 applic DAILY TOP Last administered on 12/28/16 09:00; Admin Dose 1 APPLIC; Start 12/20/16 at 16:30 Indomethacin 25 mg 25 mg DAILY PO Last administered on 12/28/16 11:31; Admin Dose 25 MG; Start 12/23/16 at 09:00 Meropenem 100 ml @ 200 mls/hr Q12 IVPB Last administered on 12/28/16 21:05; Admin Dose 200 MLS/HR; Start 12/23/16 at 15:00 Metronidazole (Flagyl 500 Mg (Pmx)) 100 ml @ 100 mls/hr Q8 IVPB Last administered on 12/29/16 06:06; Admin Dose 100 MLS/HR; Start 12/23/16 at 16:00 Vitamin A/Vitamin D 1 applic 1 applic BID PRN TOP NOTE; Start 12/24/16 at 14:30 Dextrose (D5W) 1,000 ml @ 75 mls/hr [id number] IV Last administered on 12/29/16 04:20; Admin Dose 75 MLS/HR; Start 12/28/16 at 08:30 JANNETTE LAZCANO MD Dec 29, 2016 07:48
[2016-12-29 08:27] VITALS: BP 132/70; RESP 19
[2016-12-29] MEDS: DOXYCYCLINE 100 MG in SOD CHLORIDE 0.9% 250 ML IVPB SCH ×2 (09:27→21:18)
[2016-12-29] MEDS: MUPIROCIN 2% 22 GM OINT TOP SCH ×2 (09:27→20:44)
[2016-12-29] MEDS: MEROPENEM 500 MG/100 ML (PMX) 100 ML IVPB SCH ×2 (09:27→20:29)
[2016-12-29] MEDS: COLLAGENASE 30 GM TUBE TOP SCH (09:27)
[2016-12-29] MEDS: ALLOPURINOL 300 MG TAB PO SCH (09:28)
[2016-12-29] MEDS: CHOLECALCIFEROL 1,000 UNIT TAB PO SCH (09:28)
[2016-12-29] MEDS: SERTRALINE 50 MG TAB PO SCH (09:28)
[2016-12-29] MEDS: ASCORBIC ACID 500 MG TAB PO SCH (09:28)
[2016-12-29] MEDS: FLUCONAZOLE 100 MG TAB GTB SCH (09:28)
[2016-12-29] MEDS: CALCIUM CARBONATE 1.25 GM TAB PO SCH ×3 (09:28→20:43)
[2016-12-29] MEDS: INDOMETHACIN 25 MG PO SCH (09:28)
[2016-12-29] MEDS: POTASSIUM CHLORIDE 20 MEQ POWDER FOR ORAL SOLN GTB SCH ×2 (09:28→15:30)
[2016-12-29] MEDS: VERAPAMIL 80 MG TAB PO SCH ×2 (09:29→22:14)
[2016-12-29] MEDS: MULTIVITAMINS THERAPEUTIC TAB PO SCH (09:29)
[2016-12-29 10:17] LABS: LYMPHOCYTES # 1.3 10^3/ul (0.8-2.9); MONOCYTE # 1.3 10^3/ul (0.3-0.9); NEUTROPHIL # 15.3 10^3/ul (1.6-7.5)
--- NOTE | 2016-12-29 18:18 | CONS ---
Date/Time of Note Date/Time of Note DATE: 12/29/16 TIME: 18:16 Assessment/Plan Assessment/Plan Chief Complaint/Hosp Course SUBJECTIVE: No acute changes. The patient is lying comfortably in bed. No fevers. Tolerates TF ANTIMICROBIALS: The patient is on: 1. Merrem 2. Flagyl. 3. IV doxycycline. 4. Diflucan PHYSICAL EXAMINATION: GENERAL: This is a fragile, elderly woman who is lying comfortably in bed. HEENT: Head atraumatic, normocephalic. Sclerae anicteric. Buccal mucosa dry. NECK: Supple. CHEST: Rise symmetrical. Breath sounds diminished to bases. HEART: S1, S2. ABDOMEN: Soft, bowel tones present. EXTREMITIES: Without cyanosis. ASSESSMENT: 1. Sepsis. 2. Urinary tract infection==> yeast. 3. Acute on chronic kidney disease. 4. Perianal excoriation. 5. Status post coagulase-negative staph bacteremia. 6. Healthcare-associated pneumonia with ongoing aspiration. 7. Dysphagia. 8. Methicillin-resistant Staphylococcus aureus nares colonization on Bactroban to nares. 9. Gouty arthritis. 10.Multiple decubs PLAN: The patient remains clinically unchanged, with increased wbc, will add empiric Diflucan, repeat bld cx and cxr, continue abx, aspiration precautions, local wound care DW staff Problems: Consultation Date/Type/Reason Admit Date/Time Dec 14, 2016 at 14:52 Type of Consultation: ID Exam/Review of Systems Vital Signs Vitals Vital Signs Date Time Temp Pulse Resp B/P Pulse Ox O2 Delivery O2 Flow Rate FiO2 12/29/16 08:30 Nasal Cannula 2.0 12/29/16 08:27 97.2 92 19 132/70 94 12/26/16 05:57 28 Intake and Output 12/28/16 12/28/16 12/29/16 15:00 23:00 07:00 Intake Total 960 ml 1805 ml Output Total 700 ml 400 ml Balance 260 ml 1405 ml Results Result Diagram: 12/29/16 0519 12/29/16 0519 Results 24 hrs Laboratory Tests Test 12/29/16 05:19 12/29/16 11:10 Alanine Aminotransferase (ALT/SGPT) 20 Albumin 2.1 L Albumin/Globulin Ratio 0.56 Alkaline Phosphatase 74 Anion Gap 16 Aspartate Amino Transf (AST/SGOT) 22 Band Neutrophils % 3.0 Blood Morphology Comment Blood Urea Nitrogen 52 H Calcium Level 9.3 Carbon Dioxide Level 20 L Chloride Level 121 H Creatinine 1.51 H Direct Bilirubin 0.00 Eosinophils # 3.0 H Eosinophils % 14.0 H Globulin 3.70 H Glucose Level 105 Hematocrit 26.9 L Hemoglobin 9.0 L Indirect Bilirubin 0.0 Lymphocytes # 1.3 Lymphocytes % 6.0 L Mean Corpuscular Hemoglobin 28.5 L Mean Corpuscular Hemoglobin Concent 33.5 Mean Corpuscular Volume 85.2 Mean Platelet Volume 6.8 #L Monocytes # 1.3 H Monocytes % 6.0 Neutrophils # 15.3 H Neutrophils % 71.0 Platelet Count 370 Potassium Level 3.3 L Red Blood Count 3.16 L Red Cell Distribution Width 28.1 H Sodium Level 154 H Total Bilirubin 0.0 L Total Protein 5.8 L White Blood Count 21.6 #H Lactic Acid Level 1.3 Medications Medications Current Medications Allopurinol (Zyloprim) 300 mg DAILY PO Last administered on 12/29/16 09:28; Admin Dose 300 MG; Start 12/15/16 at 09:00 Ascorbic Acid (Vitamin C) 500 mg DAILY PO Last administered on 12/29/16 09:28; Admin Dose 500 MG; Start 12/15/16 at 09:00 Cholecalciferol (Vitamin D) 2,000 unit DAILY PO Last administered on 12/29/16 09:28; Admin Dose 2,000 UNIT; Start 12/15/16 at 09:00 Magnesium Hydroxide (Milk Of Mag) 30 ml Q24H PRN PO CONSTIPATION; Start at 16:30 Multivitamins Therapeutic (Theragran) 1 tab DAILY PO Last administered on 09:29; Admin Dose 1 TAB; Start 12/15/16 at 09:00 Sertraline HCl (Zoloft) 50 mg DAILY PO Last administered on 12/29/16 09:28; Admin Dose 50 MG; Start 12/15/16 at 09:00 Calcium Carbonate (Oyster Shell Calcium) 1.25 gm TID PO Last administered on 13:45; Admin Dose 1.25 GM; Start 12/14/16 at 17:00 Pantoprazole (Protonix Tab) 40 mg DAILY@06 PO Last administered on 12/29/16 06: 06; Admin Dose 40 MG; Start 12/15/16 at 06:00 Tramadol HCl (Ultram) 50 mg Q12H PRN PO PAIN LEVEL 6-10 Last administered on 22:33; Admin Dose 50 MG; Start 12/14/16 at 18:30 Acetaminophen (Tylenol Tab) 650 mg Q6H PRN PO PAIN AND OR ELEVATED TEMP; Start 12/14/16 at 18:30 Mupirocin (Bactroban) 1 applic BID TOP Last administered on 12/29/16 09:27; Admin Dose 1 APPLIC; Start 12/16/16 at 21:00 Verapamil HCl 80 mg 80 mg BID PO Last administered on 12/29/16 09:29; Admin Dose 80 MG; Start 12/17/16 at 15:00 Doxycycline Hyclate/Sodium Chloride (Vibramycin/NS) 250 ml @ 250 mls/hr Q12 IVPB Last administered on 12/29/16 09:27; Admin Dose 250 MLS/HR; Start at 21:00 Collagenase (Santyl) 1 applic DAILY TOP Last administered on 12/29/16 09:27; Admin Dose 1 APPLIC; Start 12/20/16 at 16:30 Indomethacin 25 mg 25 mg DAILY PO Last administered on 12/29/16 09:28; Admin Dose 25 MG; Start 12/23/16 at 09:00 Meropenem 100 ml @ 200 mls/hr Q12 IVPB Last administered on 12/29/16 09:27; Admin Dose 200 MLS/HR; Start 12/23/16 at 15:00 Metronidazole (Flagyl 500 Mg (Pmx)) 100 ml @ 100 mls/hr Q8 IVPB Last administered on 12/29/16 13:45; Admin Dose 100 MLS/HR; Start 12/23/16 at 16:00 Vitamin A/Vitamin D 1 applic 1 applic BID PRN TOP NOTE; Start 12/24/16 at 14:30 Dextrose (D5W) 1,000 ml @ 75 mls/hr [id number] IV Last administered on 12/29/16 04:20; Admin Dose 75 MLS/HR; Start 12/28/16 at 08:30 Potassium Chloride (Potassium Chloride Pwd/Soln) 10 meq Q8H GTB Last administered on 12/29/16 15:30; Admin Dose 10 MEQ; Start 12/29/16 at 08:00; Stop 12/30/16 at 00:01 Fluconazole (Diflucan) 100 mg DAILY GTB Last administered on 12/29/16 09:28; Admin Dose 100 MG; Start 12/29/16 at 09:00 BRADLEY PRATER NP Dec 29, 2016 18:18
[2016-12-29 19:56] VITALS: BP 129/65; RESP 20
[2016-12-29] MEDS: traMADol 50 MG TAB PO PRN (20:44)
[2016-12-30] MEDS: POTASSIUM CHLORIDE 20 MEQ POWDER FOR ORAL SOLN GTB SCH (00:12)
[2016-12-30] MEDS: DEXTROSE 5% 1,000 ML IV SCH ×2 (00:19→13:50)
[2016-12-30] MEDS: metroNIDAZOLE 500 MG/NS (PMX) 100 ML IVPB SCH (05:38)
[2016-12-30] MEDS: PANTOPRAZOLE (EC) 40 MG TAB PO SCH (05:49)
[2016-12-30 06:16] LABS: HEMATOCRIT 26.8 % (37.0-47.0); HEMOGLOBIN 8.9 g/dl (12.0-16.0); MEAN CORPUSCULAR HEMOGLOBIN 28.2 pg (29.0-33.0); MEAN CORPUSCULAR HGB CONC 33.3 g/dl (32.0-37.0); MEAN CORPUSCULAR VOLUME 84.8 fl (82.0-101.0); MEAN PLATELET VOLUME 7.2 fl (7.4-10.4); PLATELET COUNT 330 10^3/UL (140-440); RED BLOOD COUNT 3.16 10^6/ul (4.20-5.40); RED CELL DISTRIBUTION WIDTH 26.1 % (11.5-14.5); UNCORRECTED WBC 20.3 10^3/ul (4.8-10.8); WHITE BLOOD COUNT 20.3 10^3/ul (4.8-10.8)
[2016-12-30 06:23] LABS: CONDITION 1; LH ANALYZER COMMENTS 1; SUSPECT 1
[2016-12-30 06:50] LABS: POTASSIUM 3.6 mmol/L (3.5-5.1)
[2016-12-30 06:52] LABS: CREATININE 1.48 mg/dl (0.44-1.00)
[2016-12-30 06:53] LABS: ALBUMIN/GLOBULIN RATIO 0.55; TOTAL PROTEIN 5.6 g/dl (6.1-8.1)
[2016-12-30 08:14] VITALS: BP 121/64; RESP 20
[2016-12-30] MEDS: COLLAGENASE 30 GM TUBE TOP SCH (09:00)
[2016-12-30] MEDS: DOXYCYCLINE 100 MG in SOD CHLORIDE 0.9% 250 ML IVPB SCH (09:00)
[2016-12-30 09:49] LABS: EOSINOPHILS # 2.8 10^3/ul (0.0-0.5); MONOCYTE # 0.2 10^3/ul (0.3-0.9); NEUTROPHIL # 15.8 10^3/ul (1.6-7.5)
[2016-12-30] MEDS: CHOLECALCIFEROL 1,000 UNIT TAB PO SCH (10:05)
[2016-12-30] MEDS: SERTRALINE 50 MG TAB PO SCH (10:06)
[2016-12-30] MEDS: MULTIVITAMINS THERAPEUTIC TAB PO SCH (10:06)
[2016-12-30] MEDS: INDOMETHACIN 25 MG PO SCH ×2 (10:06→20:38)
[2016-12-30] MEDS: ASCORBIC ACID 500 MG TAB PO SCH (10:06)
[2016-12-30] MEDS: FLUCONAZOLE 100 MG TAB GTB SCH (10:06)
[2016-12-30] MEDS: CALCIUM CARBONATE 1.25 GM TAB PO SCH ×3 (10:06→20:36)
[2016-12-30] MEDS: ALLOPURINOL 300 MG TAB PO SCH (10:06)
[2016-12-30] MEDS: MUPIROCIN 2% 22 GM OINT TOP SCH ×2 (10:09→20:38)
[2016-12-30] MEDS: traMADol 50 MG TAB PO PRN (10:17)
[2016-12-30] MEDS: VERAPAMIL 80 MG TAB PO SCH ×2 (10:17→20:37)
[2016-12-30] MEDS: MEROPENEM 500 MG/100 ML (PMX) 100 ML IVPB SCH ×2 (10:18→20:38)
[2016-12-30] MEDS ORDERED: VANCOMYCIN IV PER PHARMACY XX SCH (12:30)
--- NOTE | 2016-12-30 12:42 | PN ---
DATE: 12/30/2016 SUBJECTIVE: No acute changes. The patient is awake, responsive, looks comfortable, no fevers overn ight. LABORATORY: WBC 20.3 with platelets 330, neutrophils 78, bands 2, lymphs 5, monos 1. BUN 52, creat inine 1.48. MICROBIOLOGY: Urine culture grew Jazmyn albicans. Repeat blood cultures since 12/29/2016 remain negative. ANTIMICROBIALS: The patient is on: 1. Fluconazole. 2. Meropenem. 3. Flagyl. 4. Doxycycline. INDWELLINGS: PEG, Day. PHYSICAL EXAMINATION: GENERAL: This is a fragile, elderly woman who is awake, in no distress. HEENT: Head atraumatic, normocephalic. Sclerae anicteric. Buccal mucosa dry. NECK: Supple. CHEST: Rise symmetrical. Breath sounds diminished at the bases. HEART: S1, S2. ABDOMEN: Soft, bowel tones present. EXTREMITIES: Without cyanosis. ASSESSMENT: 1. Systemic inflammatory response syndrome with persistent leukocytosis. 2. Jazmyn albicans urinary tract infection, status post Pseudomonas urinary tract infection. 3. Methicillin-resistant Staphylococcus aureus nares colonization. 4. Pneumonia. 5. Dysphagia. 6. Gouty arthritis. 7. Multiple decubitus. PLAN: The patient remains clinically stable, overall is more awake today. We will change doxycycli ne to IV vancomycin and monitor her renal function closely. Discontinue Flagyl as she does not have diarrhea. Continue Merrem and fluconazole. Check chest x-ray. Continue local wound care, aspirat ion precaution. Dictated By: BRADLEY PRATER [employer] WORK[employer] for [employer] Conf#: [id number] DID#: [id number]
[2016-12-30] MEDS ORDERED: VANCOMYCIN 1 GM in NS 250 ML IVPB ONE (13:00)
--- NOTE | 2016-12-30 15:13 | PN ---
Date/Time of Note Date/Time of Note DATE: 12/30/16 TIME: 15:07 Assessment/Plan VTE Prophylaxis VTE Prophylaxis Intervention: SCD's Lines/Catheters IV C[facility]ter Type (from [facility] Peripheral IV Urinary Cath still in place: Yes Assessment/Plan Chief Complaint/Hosp Course Urosepsis Dehydration Prerenal azothemia HTN gouty arthritis CAD/ KS Mild cognitive Impairment Decubitus Stage I Problems: Subjective 24 Hr Interval Summary Free Text/Dictation Persistant Leukocytosis on triple abx Blood culture is negative Jazmyn in urine culture.on antifungal and IV abx. receiving Repeat Cxr ordered. Hematology consult called to assess. K was replaced Exam/Review of Systems Vital Signs Vitals Vital Signs Date Time Temp Pulse Resp B/P Pulse Ox O2 Delivery O2 Flow Rate FiO2 12/30/16 08:14 98.3 94 20 121/64 91 12/29/16 20:00 Nasal Cannula 2.0 Intake and Output 12/29/16 12/29/16 12/30/16 15:00 23:00 07:00 Intake Total 100 ml 2280 ml 1465 ml Output Total 450 ml 400 ml Balance 100 ml 1830 ml 1065 ml Results Result Diagram: 12/30/16 0520 12/30/16 0520 Results 24 hrs Laboratory Tests Test 12/30/16 05:20 Alanine Aminotransferase (ALT/SGPT) 18 Albumin 2.0 L Albumin/Globulin Ratio 0.55 Alkaline Phosphatase 92 Anion Gap 16 Aspartate Amino Transf (AST/SGOT) 36 Band Neutrophils % 2.0 Blood Morphology Comment Blood Urea Nitrogen 52 H Calcium Level 9.0 Carbon Dioxide Level 20 L Chloride Level 118 H Creatinine 1.48 H Direct Bilirubin 0.00 Eosinophils # 2.8 H Eosinophils % 14.0 H Globulin 3.60 H Glucose Level 96 Hematocrit 26.8 L Hemoglobin 8.9 L Indirect Bilirubin 0.0 Lymphocytes # 1.0 Lymphocytes % 5.0 L Mean Corpuscular Hemoglobin 28.2 L Mean Corpuscular Hemoglobin Concent 33.3 Mean Corpuscular Volume 84.8 Mean Platelet Volume 7.2 L Monocytes # 0.2 L Monocytes % 1.0 Neutrophils # 15.8 H Neutrophils % 78.0 H Platelet Count 330 Potassium Level 3.6 Red Blood Count 3.16 L Red Cell Distribution Width 26.1 H Sodium Level 150 H Total Bilirubin 0.0 L Total Protein 5.6 L White Blood Count 20.3 H Medications Medications Current Medications Allopurinol (Zyloprim) 300 mg DAILY PO Last administered on 12/30/16 10:06; Admin Dose 300 MG; Start 12/15/16 at 09:00 Ascorbic Acid (Vitamin C) 500 mg DAILY PO Last administered on 12/30/16 10:06; Admin Dose 500 MG; Start 12/15/16 at 09:00 Cholecalciferol (Vitamin D) 2,000 unit DAILY PO Last administered on 12/30/16 10:05; Admin Dose 2,000 UNIT; Start 12/15/16 at 09:00 Magnesium Hydroxide (Milk Of Mag) 30 ml Q24H PRN PO CONSTIPATION; Start at 16:30 Multivitamins Therapeutic (Theragran) 1 tab DAILY PO Last administered on 10:06; Admin Dose 1 TAB; Start 12/15/16 at 09:00 Sertraline HCl (Zoloft) 50 mg DAILY PO Last administered on 12/30/16 10:06; Admin Dose 50 MG; Start 12/15/16 at 09:00 Calcium Carbonate (Oyster Shell Calcium) 1.25 gm TID PO Last administered on 10:06; Admin Dose 1.25 GM; Start 12/14/16 at 17:00 Pantoprazole (Protonix Tab) 40 mg DAILY@06 PO Last administered on 12/30/16 05: 49; Admin Dose 40 MG; Start 12/15/16 at 06:00 Tramadol HCl (Ultram) 50 mg Q12H PRN PO PAIN LEVEL 6-10 Last administered on 10:17; Admin Dose 50 MG; Start 12/14/16 at 18:30 Acetaminophen (Tylenol Tab) 650 mg Q6H PRN PO PAIN AND OR ELEVATED TEMP; Start 12/14/16 at 18:30 Mupirocin (Bactroban) 1 applic BID TOP Last administered on 12/30/16 10:09; Admin Dose 1 APPLIC; Start 12/16/16 at 21:00 Verapamil HCl (Isoptin) 80 mg BID PO Last administered on 12/30/16 10:17; Admin Dose 80 MG; Start 12/17/16 at 15:00 Collagenase (Santyl) 1 applic DAILY TOP Last administered on 12/30/16 09:00; Admin Dose 1 APPLIC; Start 12/20/16 at 16:30 Indomethacin 25 mg 25 mg DAILY PO Last administered on 12/30/16 10:06; Admin Dose 25 MG; Start 12/23/16 at 09:00 Meropenem (Merrem 500 Mg/ 100 ml (Pmx)) 100 ml @ 200 mls/hr Q12 IVPB Last administered on 12/30/16 10:18; Admin Dose 200 MLS/HR; Start 12/23/16 at 15:00 Vitamin A/Vitamin D 1 applic 1 applic BID PRN TOP NOTE; Start 12/24/16 at 14:30 Dextrose (D5W) 1,000 ml @ 75 mls/hr [id number] IV Last administered on 12/30/16 00:19; Admin Dose 75 MLS/HR; Start 12/28/16 at 08:30 Fluconazole 100 mg 100 mg DAILY GTB Last administered on 12/30/16 10:06; Admin Dose 100 MG; Start 12/29/16 at 09:00 Vancomycin HCl/ Sodium Chloride (Vancocin/NS) 150 ml @ 75 mls/hr Q48H IVPB ; Start 01/01/17 at 01:00 JANNETTE LAZCANO MD Dec 30, 2016 15:13
--- NOTE | 2016-12-30 16:40 | RADRPT ---
PROCEDURE: XR Chest. CLINICAL INDICATION: Clinical concern for pneumonia. TECHNIQUE: Portable AP semi erect view of the chest was obtained. COMPARISON: 12/26/2016 FINDINGS: The cardiomediastinal silhouette is enlarged. Interval development of a asymmetric right upper lobe infiltrate raises concern for pneumonia. Bilateral pulmonary edema pattern, pulmonary vascular con gestion appears slightly worse and the diaphragm is obscured consistent with small bilateral pleural effusions. Demineralization is again noted without evidence of acute osseous abnormality. Calcific ation of the aorta is severe. RPTAT:HJJR IMPRESSION: 1. Asymmetric right upper lobe pulmonary infiltrate now present unable to exclude pneumonia superim posed upon worsening congestive heart failure pattern as compared to 12/26/2016. 2. Aortic atherosclerosis is present. Physician Melissa Date Time Electronically viewed and signed by Physician Melissa on 12/30/2016 16:40 JR/
[2016-12-30] MEDS: D5W + KCL 20 MEQ 1,000 ML IV SCH (19:18)
[2016-12-30 19:21] VITALS: BP 133/74; RESP 20
--- NOTE | 2016-12-30 19:21 | CONS ---
DATE OF ADMISSION: 12/14/2016 DATE OF CONSULTATION: 12/30/2016 REASON FOR CONSULTATION: Leukocytosis. PHYSICIAN REQUESTING CONSULTATION: Jannette Lazcano MD Dear Dr. Lazcano: Thank you very much for asking me to see this very interesting and pleasant patient in hematologic c onsultation. HISTORY OF PRESENT ILLNESS: As you know, Mrs. Arechiga is an 89-year-old female who was admitted to [facility] from a board and group home where she has been a resident. The patient w as admitted to [facility] on 12/14/2016. Apparently, at that time, the patient was experie ncing evidence of dehydration and had been found to have worsening renal function and evidence of ur osepsis. On admission to the hospital, the patient had a white count of 19,500. This included an a bsolute neutrophil count of 9400, an absolute lymphocyte count of 2900, the monocytes 1600, eosinoph ils 4900, and basophils 200. Hemoglobin was 9.2, hematocrit 21.9, MCV 80.1, MCH 26.2, MCHC 32.8, RD W 24.9, and platelet count 622,000, and MPV of 6.8. Also on admission, the patient had sodium 143, potassium 4.3, BUN 72, creatinine 2.24. Uric acid was 4.2. Calcium was 9.6. BNP was 1820 and trop onin was 0.015. Other studies included a CK of 23, CK-MB of 4.84, and troponin 0.016. On admission , the protime was 12.7 seconds, INR of 0.95, and PTT was 33.3 seconds. A urinalysis on admission sh owed greater than 100 white blood cells per high power field and 2 to 5 red blood cells per high pow er field. Urine culture showed greater than 10 to the 5th colonies of pseudomonas. This was sensit maria guadalupe to levofloxacin. The patient also did have 2 blood cultures positive for coagulase negative staph, but it is felt beny t these possibly were contaminants. Nasal swab was positive for MRSA. The patient has been treated during this hospitalization with the appropriate antibiotics. At the p resent time, the patient is on vancomycin. She is also receiving meropenem. OTHER MEDICATIONS: Include: 1. Fluconazole 100 mg per day. 2. Indomethacin 25 mg a day. 3. Verapamil 10 mg twice a day. 4. Allopurinol 300 mg per day. 5. Ascorbic acid 500 mg per day. 6. Sertraline 50 mg a day. 7. Pantoprazole 40 mg per day. 8. Tramadol 50 mg per day. ALLERGIES: THE PATIENT HAS NO KNOWN ALLERGIES. In spite of the patient's antibiotic therapy, she has continued to have leukocytosis. On 12/20/2016 , the white count was 15,700 with an absolute neutrophil count of 8900, absolute lymphocyte count of 1500, and absolute eosinophil count of 5300. On 12/22/2016, the white count was 19,200. On 2016, white count was 15,900. On 12/28/2016 was 16,700 and today 20,300. Absolute neutrophil count is 15,800, absolute lymphocyte count 1000, and absolute eosinophils 2.8. Other studies have included liver functions including total bilirubin was 0, AST 18, ALT 29, alkalin e phosphatase of 59. Total protein 5.8, albumin 2.1. Vitamin B12 of 945 and folic acid 13.7. Seru m iron 36, iron binding capacity 188, saturation 19%, and ferritin 401. The patient's renal function has improved somewhat. The patient's creatinine today is 1.48 and sodi um is 152. The patient has had hypernatremia; however. On 12/24/2016, sodium was 146. On 12/26/19 17, it was 153. On 12/28/2016, was 161. On 12/29/2016, was 154 and today 150. FAMILY HISTORY: Other than those things mentioned above, the patient's past history includes hypert ension and some degree of dementia. There is also a history of gouty arthritis. PAST MEDICAL HISTORY: It is not clear at this time if the patient has any known hematologic abnorma lities in the past. It is unclear whether she has had a history of anemia or leukocytosis. Other m edical problems have included congestive heart failure. Only surgical history includes a hysterecto my in the past. SOCIAL HISTORY: The patient, as noted, does presently living in a board and care facility. She santos s not use alcohol and it is unclear what her previous smoking history is. PHYSICAL EXAMINATION GENERAL: At this time, reveals a well-developed but chronically ill-appearing female who is in no a cute distress. VITAL SIGNS: Temperature is 98.3 orally, pulse 94 per minute and regular, respirations 20, blood pr essure 120/64, and pulse oximetry is 93% on 2 liters of oxygen by nasal cannula. SKIN: Pale. No ecchymoses, petechiae, or rashes. Poor skin turgor. HEENT: Normocephalic. No evidence of trauma. Pupils equal, round, react to light and accommodatio n. Sclerae nonicteric. Oral mucosa is dry without lesions. Tongue is well papillated. NECK: Supple. No jugular venous distention or thyroid enlargement. CHEST: Clear except for some rales on the right side. The patient does not move air well. There a re no wheezes or rubs heard. BREASTS: Atrophic. No masses, skin retraction, or nipple inversion. NODES: No palpable lymphadenopathy in any lymph node bearing area. HEART: Regular sinus rhythm. No S3, S4 or murmurs. No rubs. ABDOMEN: Somewhat firm. The patient is guarding. There are no obvious masses, although there seem s to be some fullness in the left upper quadrant. Cannot detect actual spleen edge. Bowel sounds a re active. There is no ascites. There is a G-tube in place. No succussion splash. EXTREMITIES: No clubbing, edema, or cyanosis. There are contractures noted of the upper extremitie s. There are changes of enlargement of the MCP and PIP joints. No joint effusions. NEUROLOGIC: C annot detect any focal neurologic abnormalities, but the patient is unable to cooperate with neurolo gic examination. The peripheral smear has been reviewed. There is increased rouleaux formation of the red blood cell s, but there are multiple races of red blood cells and it should be noted that the patient has recei amarilys 2 units of packed red blood cells. There are no fragmented red blood cells, no spherocytes. Wh ite blood cells are increased. There are increased numbers of bands. It is interesting that there are hypersegmented polys as well as increased eosinophils, many of them are trilobed eosinophils. T here is 1 myelocyte noted. No blasts, no nucleated red blood cells. The lymphocytes are normal in number and morphology. The platelets are increased in number and mostly large forms. DISCUSSION: This patient does present with persistent leukocytosis. Certainly initially, the leuko cytosis could be explained by the patient's pseudomonas urinary tract infection, but this appears to have been adequately treated without improvement in leukocytosis. As noted, review the peripheral blood smear does show a somewhat left shift with bands present, but interesting are also the presence of hypersegmented polys and trilobed eosinophils. Normally, this would suggest a megaloblastic process, but the patient's B12 and folic acid level are normal. There are no oval macrocytes noted nor are there any enlarged platelets. Most megaloblastic processes wi ll be associated with decrease of white blood cells and platelets. I am concerned that perhaps this patient's leukocytosis is on the basis of underlying myeloprolifera tive neoplasm. Unfortunately, there is no old history available at this time. The patient has not previously been hospitalized here, so there are no previous records for review. At this time, I will take the liberty of obtaining an ultrasound of the abdomen in order to determin e if there is splenomegaly. Other studies will include an LDH. We will also obtain a rheumatoid factor and an ANDRE. Other studies will include a JAVIER-2 mutation analysis as well as a BCR-ABL gene rearrangement study t o rule out the possibility of a myeloproliferative disorder or even chronic myelogenous leukemia. This patient does also have a significant anemia. On admission, this appeared almost macrocytic. I shirley studies, however, are certainly most consistent with an "anemia of chronic disease." Once again, thank you very much for the opportunity of participating in the medical care of this sarah beth y interesting and pleasant patient. I will be happy to follow this patient with you and assist in h er hematologic evaluation and follow up as necessary. Dictated By: NAKITA NICOLE MD SR/NTS Conf#: [id number] DID#: [id number] CC: JANNETTE LAZCANO MD;*EndCC*
[2016-12-30] MEDS ORDERED: LORAZEPAM 0.5 MG TAB PO PRN (20:30)
[2016-12-30] MEDS ORDERED: LORAZEPAM 2 MG INJ IV PRN (21:00)
[2016-12-31] MEDS: D5W + KCL 20 MEQ 1,000 ML IV SCH ×3 (05:50→19:10)
[2016-12-31] MEDS: PANTOPRAZOLE (EC) 40 MG TAB PO SCH (06:31)
[2016-12-31 06:43] LABS: CREATININE 1.52 mg/dl (0.44-1.00)
[2016-12-31 07:30] VITALS: BP 131/74; RESP 20
[2016-12-31] MEDS: COLLAGENASE 30 GM TUBE TOP SCH (09:00)
[2016-12-31] MEDS: ASCORBIC ACID 500 MG TAB PO SCH (09:39)
[2016-12-31] MEDS: MULTIVITAMINS THERAPEUTIC TAB PO SCH (09:39)
[2016-12-31] MEDS: CALCIUM CARBONATE 1.25 GM TAB PO SCH ×3 (09:39→20:50)
[2016-12-31] MEDS: INDOMETHACIN 25 MG PO SCH ×2 (09:40→20:49)
[2016-12-31] MEDS: SERTRALINE 50 MG TAB PO SCH (09:43)
[2016-12-31] MEDS: ALLOPURINOL 300 MG TAB PO SCH (09:43)
[2016-12-31] MEDS: CHOLECALCIFEROL 1,000 UNIT TAB PO SCH (09:43)
[2016-12-31] MEDS: FLUCONAZOLE 100 MG TAB GTB SCH (09:43)
[2016-12-31] MEDS: VERAPAMIL 80 MG TAB PO SCH ×2 (09:44→20:50)
[2016-12-31] MEDS: MEROPENEM 500 MG/100 ML (PMX) 100 ML IVPB SCH ×2 (10:32→20:49)
[2016-12-31] MEDS: MUPIROCIN 2% 22 GM OINT TOP SCH ×2 (10:32→20:50)
--- NOTE | 2016-12-31 13:41 | RADRPT ---
PROCEDURE: US Abdomen and Retroperitoneum. CLINICAL INDICATION: Splenomegaly TECHNIQUE: Multiple real-time longitudinal and transverse images were acquired of the patient's ab domen and retroperitoneum utilizing a curved array transducer. COMPARISON: None FINDINGS: The liver demonstrates coarsened echotexture and question of surface nodularity, concerning for cirr hosis. No gross evidence of focal hepatic mass is identified. Normal hepatopedal flow is seen withi n the main portal vein. The gallbladder is normal. There is no pericholecystic fluid or gallbladder wall thickening or gallstones. No intrahepatic biliary dilatation is seen. The common bile duct brad sures 8.0 mm in maximal dimension. Pancreas and abdominal aorta are obscured by bowel gas. The spl een is normal in size, measuring 8.2 cm in length. No free fluid is identified. The right kidney measures 10.4 cm in length. The left kidney measures 8.9 cm in length. Benign righ t renal cyst is noted. Both kidneys demonstrate increased cortical echogenicity and mild hydronephr osis, greater on the left. No solid renal mass, calculus, or perinephric fluid collection is identi fied. Large right pleural effusion is noted. IMPRESSION: 1. Liver demonstrates coarsened echotexture and question of surface nodularity, concerning for poss ible cirrhosis. No sonographic evidence of focal hepatic mass is seen. 2. No cholelithiasis or cholecystitis is identified. 3. The spleen is normal in size, measuring 8.2 cm in length. 4. There is mild bilateral hydronephrosis, greater on the left, of uncertain etiology - consider CT for further evaluation. 5. Large right pleural effusion is noted, of uncertain etiology. RPTAT: QQ .Moody Camacho MD, Date Time Electronically viewed and signed by .Moody Camacho MD, on 12/31/2016 13:40 .R/
--- NOTE | 2016-12-31 13:55 | CONS ---
Date/Time of Note Date/Time of Note DATE: 12/31/16 TIME: 13:52 Assessment/Plan Assessment/Plan Chief Complaint/Hosp Course SUBJECTIVE: No acute changes. The patient is lying comfortably in bed. No fevers. Tolerates TF ANTIMICROBIALS: The patient is on: 1. Merrem 3. IV Vanco. 4. Diflucan PHYSICAL EXAMINATION: GENERAL: This is a fragile, elderly woman who is lying comfortably in bed. HEENT: Head atraumatic, normocephalic. Sclerae anicteric. Buccal mucosa dry. NECK: Supple. CHEST: Rise symmetrical. Breath sounds diminished to bases. HEART: S1, S2. ABDOMEN: Soft, bowel tones present. EXTREMITIES: Without cyanosis. ASSESSMENT: 1. Sepsis. 2. Urinary tract infection==> yeast. 3. Acute on chronic kidney disease. 4. Perianal excoriation and multiple decubs. 5. Status post coagulase-negative staph bacteremia. 6. Healthcare-associated pneumonia/aspiration. 7. Dysphagia, s/p PEG. 8. Methicillin-resistant Staphylococcus aureus nares colonization==> on Bactroban to nares. 9. Gouty arthritis. 10.B hydronephrosis PLAN: The patient remains clinically unchanged, will complete abx for couple more days, continue Diflucan, f/u hematology rec-s, consider CT abdomen [facility] staff Problems: Consultation Date/Type/Reason Admit Date/Time Dec 14, 2016 at 14:52 Type of Consultation: ID Exam/Review of Systems Vital Signs Vitals Vital Signs Date Time Temp Pulse Resp B/P Pulse Ox O2 Delivery O2 Flow Rate FiO2 12/31/16 07:30 97.4 86 20 131/74 91 12/30/16 20:22 3.0 12/30/16 20:00 Nasal Cannula Intake and Output 12/30/16 12/30/16 12/31/16 14:59 22:59 06:59 Intake Total 450 ml 725 ml 750 ml Balance 450 ml 725 ml 750 ml Results Result Diagram: 12/30/16 0520 12/31/16 0515 Results 24 hrs Laboratory Tests Test 12/30/16 18:50 12/31/16 05:15 Lactate Dehydrogenase 325 Rheumatoid Factor Screen NEGATIVE Blood Urea Nitrogen 53 H Creatinine 1.52 H Medications Medications Current Medications Allopurinol (Zyloprim) 300 mg DAILY PO Last administered on 12/31/16 09:43; Admin Dose 300 MG; Start 12/15/16 at 09:00 Ascorbic Acid (Vitamin C) 500 mg DAILY PO Last administered on 12/31/16 09:39; Admin Dose 500 MG; Start 12/15/16 at 09:00 Cholecalciferol (Vitamin D) 2,000 unit DAILY PO Last administered on 12/31/16 09:43; Admin Dose 2,000 UNIT; Start 12/15/16 at 09:00 Magnesium Hydroxide (Milk Of Mag) 30 ml Q24H PRN PO CONSTIPATION; Start at 16:30 Multivitamins Therapeutic (Theragran) 1 tab DAILY PO Last administered on 09:39; Admin Dose 1 TAB; Start 12/15/16 at 09:00 Sertraline HCl (Zoloft) 50 mg DAILY PO Last administered on 12/31/16 09:43; Admin Dose 50 MG; Start 12/15/16 at 09:00 Calcium Carbonate (Oyster Shell Calcium) 1.25 gm TID PO Last administered on 13:01; Admin Dose 1.25 GM; Start 12/14/16 at 17:00 Pantoprazole (Protonix Tab) 40 mg DAILY@06 PO Last administered on 12/31/16 06: 31; Admin Dose 40 MG; Start 12/15/16 at 06:00 Tramadol HCl (Ultram) 50 mg Q12H PRN PO PAIN LEVEL 6-10 Last administered on 10:17; Admin Dose 50 MG; Start 12/14/16 at 18:30 Acetaminophen (Tylenol Tab) 650 mg Q6H PRN PO PAIN AND OR ELEVATED TEMP; Start 12/14/16 at 18:30 Mupirocin (Bactroban) 1 applic BID TOP Last administered on 12/31/16 10:32; Admin Dose 1 APPLIC; Start 12/16/16 at 21:00 Verapamil HCl (Isoptin) 80 mg BID PO Last administered on 12/31/16 09:44; Admin Dose 80 MG; Start 12/17/16 at 15:00 Collagenase 1 applic 1 applic DAILY TOP Last administered on 12/31/16 09:00; Admin Dose 1 APPLIC; Start 12/20/16 at 16:30 Meropenem (Merrem 500 Mg/ 100 ml (Pmx)) 100 ml @ 200 mls/hr Q12 IVPB Last administered on 12/31/16 10:32; Admin Dose 200 MLS/HR; Start 12/23/16 at 15:00 Vitamin A/Vitamin D (Vitamin A & D Oint) 1 applic BID PRN TOP NOTE Last administered on 12/30/16 16:07; Admin Dose 1 APPLIC; Start 12/24/16 at 14:30 Fluconazole 100 mg 100 mg DAILY GTB Last administered on 12/31/16 09:43; Admin Dose 100 MG; Start 12/29/16 at 09:00 Vancomycin HCl 750 mg/Sodium Chloride 150 ml @ 75 mls/hr Q36H IVPB ; Start 01/01 at 01:00 Potassium Chloride/Dextrose (D5W + KCl 20 Meq) 1,000 ml @ 75 mls/hr [id number] IV Last administered on 12/31/16 10:32; Admin Dose 75 MLS/HR; Start 12/30/16 at 16 :30 Indomethacin (Indocin) 25 mg BID PO Last administered on 12/31/16 09:40; Admin Dose 25 MG; Start 12/30/16 at 21:00 Lorazepam (Ativan) 0.5 mg Q12 PRN IV ANXIETY Last administered on 12/30/16 22: 39; Admin Dose 0.5 MG; Start 12/30/16 at 21:00 BRADLEY PRATER NP Dec 31, 2016 13:55
--- NOTE | 2016-12-31 15:32 | PN ---
Date/Time of Note Date/Time of Note DATE: 12/31/16 TIME: 15:28 Assessment/Plan VTE Prophylaxis VTE Prophylaxis Intervention: SCD's Lines/Catheters IV Catheter Type (from Nrs): Peripheral IV Urinary Cath still in place: Yes Assessment/Plan Chief Complaint/Hosp Course Urosepsis Dehydration Prerenal azothemia HTN gouty arthritis CAD/ ME Mild cognitive Impairment Decubitus Stage I Problems: Subjective 24 Hr Interval Summary Free Text/Dictation CXR: Right upper lob infilterate RIght plueral blunting. ABd sono, normal spleen and biltl hydro with Right pleural effusion, Seen by Dr Abrams of Hem. less alert with labored breathing, Bun/ creat same on triple Abx Exam/Review of Systems Vital Signs Vitals Vital Signs Date Time Temp Pulse Resp B/P Pulse Ox O2 Delivery O2 Flow Rate FiO2 12/31/16 08:30 Nasal Cannula 2.0 12/31/16 07:30 97.4 86 20 131/74 91 Intake and Output 12/30/16 12/30/16 12/31/16 15:00 23:00 07:00 Intake Total 350 ml 725 ml 750 ml Balance 350 ml 725 ml 750 ml Results Result Diagram: 12/30/16 0520 12/31/16 0515 Results 24 hrs Laboratory Tests Test 12/30/16 18:50 12/31/16 05:15 Lactate Dehydrogenase 325 Rheumatoid Factor Screen NEGATIVE Blood Urea Nitrogen 53 H Creatinine 1.52 H Medications Medications Current Medications Allopurinol (Zyloprim) 300 mg DAILY PO Last administered on 12/31/16 09:43; Admin Dose 300 MG; Start 12/15/16 at 09:00 Ascorbic Acid (Vitamin C) 500 mg DAILY PO Last administered on 12/31/16 09:39; Admin Dose 500 MG; Start 12/15/16 at 09:00 Cholecalciferol (Vitamin D) 2,000 unit DAILY PO Last administered on 12/31/16 09:43; Admin Dose 2,000 UNIT; Start 12/15/16 at 09:00 Magnesium Hydroxide (Milk Of Mag) 30 ml Q24H PRN PO CONSTIPATION; Start at 16:30 Multivitamins Therapeutic (Theragran) 1 tab DAILY PO Last administered on 09:39; Admin Dose 1 TAB; Start 12/15/16 at 09:00 Sertraline HCl (Zoloft) 50 mg DAILY PO Last administered on 12/31/16 09:43; Admin Dose 50 MG; Start 12/15/16 at 09:00 Calcium Carbonate (Oyster Shell Calcium) 1.25 gm TID PO Last administered on 13:01; Admin Dose 1.25 GM; Start 12/14/16 at 17:00 Pantoprazole (Protonix Tab) 40 mg DAILY@06 PO Last administered on 12/31/16 06: 31; Admin Dose 40 MG; Start 12/15/16 at 06:00 Tramadol HCl (Ultram) 50 mg Q12H PRN PO PAIN LEVEL 6-10 Last administered on 10:17; Admin Dose 50 MG; Start 12/14/16 at 18:30 Acetaminophen (Tylenol Tab) 650 mg Q6H PRN PO PAIN AND OR ELEVATED TEMP; Start 12/14/16 at 18:30 Mupirocin (Bactroban) 1 applic BID TOP Last administered on 12/31/16 10:32; Admin Dose 1 APPLIC; Start 12/16/16 at 21:00 Verapamil HCl (Isoptin) 80 mg BID PO Last administered on 12/31/16 09:44; Admin Dose 80 MG; Start 12/17/16 at 15:00 Collagenase 1 applic 1 applic DAILY TOP Last administered on 12/31/16 09:00; Admin Dose 1 APPLIC; Start 12/20/16 at 16:30 Meropenem (Merrem 500 Mg/ 100 ml (Pmx)) 100 ml @ 200 mls/hr Q12 IVPB Last administered on 12/31/16 10:32; Admin Dose 200 MLS/HR; Start 12/23/16 at 15:00 Vitamin A/Vitamin D (Vitamin A & D Oint) 1 applic BID PRN TOP NOTE Last administered on 12/30/16 16:07; Admin Dose 1 APPLIC; Start 12/24/16 at 14:30 Fluconazole 100 mg 100 mg DAILY GTB Last administered on 12/31/16 09:43; Admin Dose 100 MG; Start 12/29/16 at 09:00 Vancomycin HCl 750 mg/Sodium Chloride 150 ml @ 75 mls/hr Q36H IVPB ; Start 01/01 at 01:00 Potassium Chloride/Dextrose (D5W + KCl 20 Meq) 1,000 ml @ 75 mls/hr [id number] IV Last administered on 12/31/16 10:32; Admin Dose 75 MLS/HR; Start 12/30/16 at 16 :30 Indomethacin (Indocin) 25 mg BID PO Last administered on 12/31/16 09:40; Admin Dose 25 MG; Start 12/30/16 at 21:00 Lorazepam (Ativan) 0.5 mg Q12 PRN IV ANXIETY Last administered on 12/30/16 22: 39; Admin Dose 0.5 MG; Start 12/30/16 at 21:00 JANNETTE LAZCANO MD Dec 31, 2016 15:31
--- NOTE | 2016-12-31 18:51 | PN ---
DATE: 12/31/2016 SUBJECTIVE: The patient is clinically unchanged. LABORATORY DATA: White count today is 20,300 with 78% neutrophils, 2% bands, 5% lymphocytes, and 14 % eosinophils. Hemoglobin 8.9, hematocrit 26.8, and platelet count is 330,000. The LDH is normal at 325. Rheumatoid factor is negative. The patient has had the abdominal ultrasound as requested. This demonstrates the spleen to be only 8.2 cm in length. This is within normal size. The liver does demonstrate some nodularity and coars e echotexture suggesting the possibility of cirrhosis. There is a large right-sided pleural effusion noted. The absence of splenomegaly does not rule out the possibility of a myeloproliferative disorder. As noted previously, there are white cell changes such as hypersegmented polys and trilobed eosinophils , which suggests underlying bone marrow process. As noted, the patient does have a pleural effusion noted on ultrasound of the chest. This could be the etiology for the leukocytosis. Perhaps an ultrasound-guided thoracentesis may be of benefit. The JAVIER-2 mutation and the BCR-ABL gene rearrangement studies are still pending. We will request a CBC in the morning again and a review of the peripheral smear once again. Dictated By: NAKITA NICOLE MD SR/NTS Conf#: [id number] DID#: [id number] CC: JANNETTE LAZCANO MD;*End*
[2016-12-31 19:50] VITALS: BP 132/59; RESP 20
[2017-01-01] MEDS ORDERED: VANCOMYCIN 750 MG in SOD CHLORIDE 0.9% 150 ML IVPB SCH ×2 (01:00→13:00)
[2017-01-01] MEDS: D5W + KCL 20 MEQ 1,000 ML IV SCH (01:43)
[2017-01-01] MEDS: PANTOPRAZOLE (EC) 40 MG TAB PO SCH (06:19)
[2017-01-01] MEDS: SERTRALINE 50 MG TAB PO SCH (08:24)
[2017-01-01] MEDS: FLUCONAZOLE 100 MG TAB GTB SCH (08:24)
[2017-01-01] MEDS: MEROPENEM 500 MG/100 ML (PMX) 100 ML IVPB SCH (08:24)
[2017-01-01] MEDS: INDOMETHACIN 25 MG PO SCH ×2 (08:24→20:18)
[2017-01-01] MEDS: MUPIROCIN 2% 22 GM OINT TOP SCH ×2 (08:25→20:19)
[2017-01-01] MEDS: MULTIVITAMINS THERAPEUTIC TAB PO SCH (08:25)
[2017-01-01] MEDS: CALCIUM CARBONATE 1.25 GM TAB PO SCH ×3 (08:25→20:18)
[2017-01-01] MEDS: CHOLECALCIFEROL 1,000 UNIT TAB PO SCH (08:25)
[2017-01-01] MEDS: ASCORBIC ACID 500 MG TAB PO SCH (08:25)
[2017-01-01] MEDS: ALLOPURINOL 300 MG TAB PO SCH (08:25)
[2017-01-01] MEDS: VERAPAMIL 80 MG TAB PO SCH ×2 (08:29→20:18)
[2017-01-01] MEDS: COLLAGENASE 30 GM TUBE TOP SCH (08:30)
[2017-01-01 09:19] VITALS: BP 135/82; RESP 16
[2017-01-01 09:31] LABS: HEMOGLOBIN 8.8 g/dl (12.0-16.0); MEAN CORPUSCULAR HEMOGLOBIN 27.8 pg (29.0-33.0); MEAN CORPUSCULAR HGB CONC 32.5 g/dl (32.0-37.0); MEAN CORPUSCULAR VOLUME 85.6 fl (82.0-101.0); MEAN PLATELET VOLUME 8.1 fl (7.4-10.4); PLATELET COUNT 336 10^3/UL (140-440); RED BLOOD COUNT 3.16 10^6/ul (4.20-5.40); RED CELL DISTRIBUTION WIDTH 27.8 % (11.5-14.5); UNCORRECTED WBC 22.2 10^3/ul (4.8-10.8); WHITE BLOOD COUNT 22.2 10^3/ul (4.8-10.8)
[2017-01-01 09:39] LABS: CONDITION 1; LH ANALYZER COMMENTS 1; SUSPECT 1
[2017-01-01 09:42] LABS: POTASSIUM 5.1 mmol/L (3.5-5.1)
[2017-01-01 09:44] LABS: CREATININE 1.44 mg/dl (0.44-1.00)
[2017-01-01 09:45] LABS: CALCIUM 9.3 mg/dl (8.4-10.2)
[2017-01-01 11:16] LABS: EOSINOPHILS # 1.3 10^3/ul (0.0-0.5); LYMPHOCYTES # 1.1 10^3/ul (0.8-2.9); MONOCYTE # 0.9 10^3/ul (0.3-0.9); NEUTROPHIL # 17.3 10^3/ul (1.6-7.5)
[2017-01-01 11:17] LABS: BURR CELLS MODERATE
[2017-01-01 11:18] LABS: SCHISTOCYTES FEW
--- NOTE | 2017-01-01 16:12 | PN ---
DATE: 01/01/2017 SUBJECTIVE: No acute events, no fevers. The patient is lying comfortably in bed. Vital signs stab le. LABORATORY: WBC today 22.2 with platelets 336, neutrophils 78, H and H 8.8 and 27, BUN 53, creatini ne 1.4. INDWELLINGS: Day catheter, PEG. ANTIMICROBIALS: The patient is on: 1. IV vancomycin. 2. Fluconazole. 3. Meropenem. PHYSICAL EXAMINATION: GENERAL: This is a fragile, ill-appearing, elderly woman who is in no distress. HEENT: Head atraumatic, normocephalic. Sclerae anicteric. Buccal mucosa dry. NECK: Supple, trachea midline. CHEST: Rise symmetrical. Breath sounds diminished at the bases. HEART: S1, S2. ABDOMEN: Soft, bowel tones present. EXTREMITIES: Without cyanosis. Trace edema. SKIN: With multiple excoriation. ASSESSMENT: 1. Persistent leukocytosis, status post sepsis. 2. Status post urinary tract infection with initial urine culture grew Pseudomonas aeruginosa. Rep eat urine culture growing Jazmyn glabrata and Jazmyn albicans. 3. Methicillin-resistant Staphylococcus aureus colonized nares, remains on topical Bactroban. 4. Status post coagulase-negative staph bacteremia. 5. Dysphagia, status post percutaneous endoscopic gastrostomy. 6. Bilateral hydronephrosis, left greater than right as per ultrasound of the abdomen. 7. Right pleural effusion, etiology unclear. PLAN: The patient remains stable, clinically unchanged. No fevers. She is with persistent leukocy tosis. She is being followed by Dr. Abrams in hematology consultation who is ruling out myeloproli ferative disorder. The patient also has a large pleural effusion that also could cause elevated i te blood cell count. She has been on antibiotics since admission and completed more than 2 weeks tr eatment. At this point, we will discontinue all antibiotics. Change fluconazole to Voriconazole fo r coverage of Jazmyn glabrata that she grows in her urine. Monitor chest x-ray and repeat it in a. m. Consider CT abdomen, pelvis and chest to evaluate findings of hydronephrosis and evaluate her fo r her pleural effusion. Dictated By: BRADLEY PRATER [employer] SUPERVISOR for [employer]AN/NTS Conf#: [id number] DID#: [id number]
[2017-01-01] MEDS ORDERED: D5W + KCL 20 MEQ 1,000 ML IV SCH (17:00)
--- NOTE | 2017-01-01 17:05 | PN ---
Date/Time of Note Date/Time of Note DATE: 01/01/17 TIME: 17:02 Assessment/Plan VTE Prophylaxis VTE Prophylaxis Intervention: SCD's Lines/Catheters IV [facility] Type [facility] Peripheral IV Urinary Cath still in place: Yes Assessment/Plan Chief Complaint/Hosp Course Urosepsis Dehydration Prerenal azothemia HTN gouty arthritis CAD/ [place] Mild cognitive Impairment Decubitus Stage I Problems: Subjective 24 Hr Interval Summary Free Text/Dictation Slightly more alert. awaiting Ct of Abd/pelvic WBC increased . KCL to be D/C Exam/Review of Systems Vital Signs Vitals Vital Signs Date Time Temp Pulse Resp B/P Pulse Ox O2 Delivery O2 Flow Rate FiO2 01/01/17 11:02 2.0 01/01/17 09:19 97.0 75 16 135/82 91 01/01/17 08:00 Nasal Cannula Intake and Output 12/31/16 12/31/16 01/01/17 15:00 23:00 07:00 Intake Total 350 ml 1360 ml 900 ml Output Total 500 ml 300 ml Balance 350 ml 860 ml 600 ml Results Result Diagram: 01/01/17 0908 01/01/17 0908 Results 24 hrs Laboratory Tests Test 01/01/17 09:08 Anion Gap 16 Basophilic Stippling FEW Basophils # Basophils % Blood Morphology Comment Blood Urea Nitrogen 53 H Calcium Level 9.3 Carbon Dioxide Level 20 L Chloride Level 114 H Creatinine 1.44 H Eosinophils # 1.3 H Eosinophils % 6.0 Glucose Level 119 Hematocrit 27.0 L Hemoglobin 8.8 L Lymphocytes # 1.1 Lymphocytes % 5.0 L Mean Corpuscular Hemoglobin 27.8 L Mean Corpuscular Hemoglobin Concent 32.5 Mean Corpuscular Volume 85.6 Mean Platelet Volume 8.1 Monocytes # 0.9 Monocytes % 4.0 Neutrophils # 17.3 H Neutrophils % 78.0 H Nucleated Red Blood Cells # Nucleated Red Blood Cells % 2.0 H Platelet Count 336 Potassium Level 5.1 Red Blood Count 3.16 L Red Cell Distribution Width 27.8 H Schistocytes FEW Sodium Level 145 H White Blood Count 22.2 H Medications Medications Current Medications Allopurinol (Zyloprim) 300 mg DAILY PO Last administered on 01/01/17t 08:25; Admin Dose 300 MG; Start 12/15/16 at 09:00 Ascorbic Acid (Vitamin C) 500 mg DAILY PO Last administered on 01/01/17 08:25; Admin Dose 500 MG; Start 12/15/16 at 09:00 Cholecalciferol (Vitamin D) 2,000 unit DAILY PO Last administered on 01/01/17 08:25; Admin Dose 2,000 UNIT; Start 12/15/16 at 09:00 Magnesium Hydroxide (Milk Of Mag) 30 ml Q24H PRN PO CONSTIPATION; Start at 16:30 Multivitamins Therapeutic (Theragran) 1 tab DAILY PO Last administered on 08:25; Admin Dose 1 TAB; Start 12/15/16 at 09:00 Sertraline HCl (Zoloft) 50 mg DAILY PO Last administered on 01/01/17 08:24; Admin Dose 50 MG; Start 12/15/16 at 09:00 Calcium Carbonate (Oyster Shell Calcium) 1.25 gm TID PO Last administered on 12:21; Admin Dose 1.25 GM; Start 12/14/16 at 17:00 Pantoprazole (Protonix Tab) 40 mg DAILY@06 PO Last administered on 01/01/17 06: 19; Admin Dose 40 MG; Start 12/15/16 at 06:00 Tramadol HCl (Ultram) 50 mg Q12H PRN PO PAIN LEVEL 6-10 Last administered on 10:17; Admin Dose 50 MG; Start 12/14/16 at 18:30 Acetaminophen (Tylenol Tab) 650 mg Q6H PRN PO PAIN AND OR ELEVATED TEMP; Start 12/14/16 at 18:30 Mupirocin (Bactroban) 1 applic BID TOP Last administered on 01/01/17 08:25; Admin Dose 1 APPLIC; Start 12/16/16 at 21:00 Verapamil HCl (Isoptin) 80 mg BID PO Last administered on 01/01/17 08:29; Admin Dose 80 MG; Start 12/17/16 at 15:00 Collagenase (Santyl) 1 applic DAILY TOP Last administered on 01/01/17 08:30; Admin Dose 1 APPLIC; Start 12/20/16 at 16:30 Vitamin A/Vitamin D (Vitamin A & D Oint) 1 applic BID PRN TOP NOTE Last administered on 12/30/16 16:07; Admin Dose 1 APPLIC; Start 12/24/16 at 14:30 Indomethacin (Indocin) 25 mg BID PO Last administered on 01/01/17 08:24; Admin Dose 25 MG; Start 12/30/16 at 21:00 Lorazepam (Ativan) 0.5 mg Q12 PRN IV ANXIETY Last administered on 12/30/16 22: 39; Admin Dose 0.5 MG; Start 12/30/16 at 21:00 Voriconazole 200 mg 200 mg BID PO ; Start 01/01/17 at 21:00 Potassium Chloride/Dextrose (D5W + KCl 20 Meq) 1,000 ml @ 75 mls/hr [id number] IV ; Start 01/01/17 at 17:00 JANNETTE LAZCANO MD Jan 01, 2017 17:05
[2017-01-01] MEDS: DEXTROSE 5% 1,000 ML IV SCH (17:26)
--- NOTE | 2017-01-01 17:52 | CONS ---
DATE OF ADMISSION: 12/14/2016 DATE OF CONSULTATION: 01/01/2017 Hematology followup progress note. SUBJECTIVE: The patient and remains unchanged. There are no new complaints. OBJECTIVE: VITAL SIGNS: Temperature 97, pulse 76 per minute and regular, respirations 16, blood pressure is 13 5/82, pulse oximetry is 91% on 2 liters of oxygen by nasal cannula. SKIN: Pale. No ecchymoses, no petechiae or rashes. HEENT: No mucosal lesions. No scleral icterus. NECK: Supple, no jugular venous distention or thyroid enlargement. CHEST: Decreased breath sounds on the right side with no rubs heard. ABDOMEN: No masses or ascites. EXTREMITIES: No clubbing, edema or cyanosis. Some contraction. LABORATORY DATA: White count is 22,200 with an absolute neutrophil count of 17,300. The hemoglobin was 8.8, hematocrit 27, MCV 85.6, MCH 27.8, MCHC 32.5, RDW 27.8 and platelet count is 336,000. The peripheral smear has been reviewed again today. There is an obvious leukocytosis consisting mos tly of mature neutrophils. There are some Dohle bodies and minimal toxic granulation. Occasional v acuolization of the cytoplasmic granulocytes. As previously noted, there are increased eosinophils and some are trilobed. There is an increase in crenated appearing red blood cells and some schisto cytes. ASSESSMENT: Leukocytosis, etiology unclear. Awaiting JAK2 mutation analysis as well as BCR-ABL gene rearrangement studies to rule out a myelopro liferative neoplasm or CML. The finding of the crenated red blood cells and schistocytes suggest the possibility of renal abnorm alities but this patient's creatinine is 1.44 while BUN is 53. Much of this is likely prerenal due to volume contraction. Will obtain a haptoglobin and reticulocyte count in the a.m. Also, would consider further evaluatio n for thalassemia trait, but this is highly unlikely given the lack of macrocytosis and the appropr iate red blood cell count. Dictated By: NAKITA NICOLE MD, SR/NTS Conf#: [id number] DID#: [id number]
[2017-01-01 18:19] LABS: ANA SCREEN POSITIVE (NEGATIVE)
[2017-01-01 19:35] VITALS: BP 125/63; RESP 16
[2017-01-01] MEDS: VORICONAZOLE 200 MG TAB PO SCH (20:18)
[2017-01-02] VITALS (32 sets, daily range): BP systolic 40–118; BP diastolic 27–61; PULSE 59–112; RESP 16–21
[2017-01-02] MEDS: PANTOPRAZOLE (EC) 40 MG TAB PO SCH (06:28)
[2017-01-02] MEDS: DEXTROSE 5% 1,000 ML IV SCH (06:28)
[2017-01-02] MEDS ORDERED: ROCURONIUM 50 MG INJ ONE (07:00)
[2017-01-02] MEDS ORDERED: NA BICARBONATE 8.4% 50 ML SYG ONE ×2 (07:00→21:24)
[2017-01-02] MEDS ORDERED: ETOMIDATE 20 MG INJ ONE (07:00)
[2017-01-02] MEDS ORDERED: EPINEPHrine 0.1 MG/ML SYG ONE ×2 (07:00→22:04)
[2017-01-02] MEDS ORDERED: MAGNESIUM SULFATE 1 GM/100 ML D5W IVPB ONE (07:00)
--- NOTE | 2017-01-02 08:00 | RADRPT ---
PROCEDURE: CT Chest, Abdomen and Pelvis without intravenous contrast CLINICAL INDICATION: Hydronephrosis, pleural effusion. TECHNIQUE: CT of the chest, abdomen and pelvis was performed on a multidetector scanner without IV contrast. Coronal and sagittal images were reformatted from the axial data set. One or more of th e following dose reduction techniques were used: automated exposure control, adjustment of the mA a nd/or kV according to patient size, use of iterative reconstruction technique. CTDI = 14.89 mGy. DLP = 995.87 mGy-cm. COMPARISON: Ultrasound, 12/31/2016 FINDINGS: CT chest: There are large bilateral pleural effusions. Extensive paracentral ground-glass opacity and more co nfluent consolidation is seen, suggestive of pulmonary edema. No pneumothorax is identified. Retai davina secretions are present within the proximal trachea. There is mild cardiomegaly, without pericardial effusion. Coronary arterial and aortic atherosclero tic calcifications are present. There is no thoracic aortic aneurysm. No mediastinal, hilar, axill natalia or supraclavicular lymphadenopathy is identified. CT abdomen and pelvis: Liver, gallbladder, biliary tree, pancreas, spleen and adrenal glands are unremarkable. Small bilat eral nonobstructive renal calculi are noted. There is nonspecific mild fullness of the bilateral re nal pelves. No ureteral dilatation or ureteral calculus is identified. Benign right renal cyst is i ncidentally noted. Gastrostomy tube tip is within the stomach. Moderate hiatal hernia is identifie d. The aorta is of normal caliber. Aortic vascular calcifications are present. There is no retroperit salguero lymphadenopathy. The ousmane hepatis region is clear. No bowel obstruction, free intraperitoneal air or abscess is identified. Mild retained fecal materi al is suggestive of constipation. Sigmoid diverticulosis is noted, without evidence for diverticuli tis. There is no appendicitis or colitis. Day catheter balloon is within the urinary bladder. N o pelvic mass, free fluid or lymphadenopathy is identified. Uterus is surgically absent. The surrounding osseous structures are remarkable for scoliosis and degenerative spondylosis of the spine. No osteolytic or osteoblastic lesion is detected. Diffuse anasarca is noted. IMPRESSION: 1. Extensive paracentral ground-glass opacity and more confluent consolidation is seen, suggestive of severe pulmonary edema. There are large bilateral pleural effusions. 2. Mild cardiomegaly is noted. Coronary arterial and aortoiliac atherosclerotic calcifications are present. 3. Small bilateral nonobstructive renal calculi are noted. There is nonspecific mild fullness of t he bilateral renal pelves, without evidence of ureteral calculus or ureteral dilatation. 4. Moderate hiatal hernia is present. 5. Gastrostomy tube and Day catheter are in place. 6. Mild retained fecal material is suggestive of constipation. 7. Sigmoid diverticulosis is noted, without evidence for diverticulitis. 8. Uterus is surgically absent. 9. Diffuse anasarca is noted. RPTAT: QQ .Moody Camacho MD, MD Date Time Electronically viewed and signed by .Moody Camacho MD, on 01/02/2017 08:00 .R/
[2017-01-02 08:26] LABS: HEMOGLOBIN 9.3 g/dl (12.0-16.0); MEAN CORPUSCULAR HEMOGLOBIN 28.2 pg (29.0-33.0); MEAN CORPUSCULAR VOLUME 85.3 fl (82.0-101.0); MEAN PLATELET VOLUME 8.6 fl (7.4-10.4); PLATELET COUNT 302 10^3/UL (140-440); RED BLOOD COUNT 3.29 10^6/ul (4.20-5.40); RED CELL DISTRIBUTION WIDTH 27.1 % (11.5-14.5); WHITE BLOOD COUNT 21.6 10^3/ul (4.8-10.8)
[2017-01-02 08:29] LABS: CONDITION 1; LH ANALYZER COMMENTS 1; SUSPECT 1
[2017-01-02] MEDS: MUPIROCIN 2% 22 GM OINT TOP SCH ×2 (08:33→21:00)
[2017-01-02] MEDS: CHOLECALCIFEROL 1,000 UNIT TAB PO SCH (08:33)
[2017-01-02] MEDS: CALCIUM CARBONATE 1.25 GM TAB PO SCH ×3 (08:33→21:00)
[2017-01-02] MEDS: ALLOPURINOL 300 MG TAB PO SCH (08:33)
[2017-01-02] MEDS: INDOMETHACIN 25 MG PO SCH ×2 (08:33→21:00)
[2017-01-02] MEDS: ASCORBIC ACID 500 MG TAB PO SCH (08:33)
[2017-01-02] MEDS: VORICONAZOLE 200 MG TAB PO SCH ×2 (08:33→21:00)
[2017-01-02] MEDS: SERTRALINE 50 MG TAB PO SCH (08:33)
[2017-01-02] MEDS: MULTIVITAMINS THERAPEUTIC TAB PO SCH (08:33)
[2017-01-02] MEDS: COLLAGENASE 30 GM TUBE TOP SCH (08:39)
[2017-01-02] MEDS: VERAPAMIL 80 MG TAB PO SCH ×2 (08:39→21:00)
[2017-01-02 08:47] LABS: ALBUMIN 1.9 g/dl (3.3-4.9); POTASSIUM 5.5 mmol/L (3.5-5.1)
[2017-01-02 08:49] LABS: CREATININE 1.4 mg/dl (0.44-1.00)
[2017-01-02 08:50] LABS: ALBUMIN/GLOBULIN RATIO 0.52; TOTAL PROTEIN 5.5 g/dl (6.1-8.1)
[2017-01-02 08:51] LABS: CALCIUM 9.5 mg/dl (8.4-10.2)
[2017-01-02 09:23] LABS: RETICULOCYTE COUNT % 2.3 % (0.5-1.5)
[2017-01-02 12:03] LABS: ANA TITER 1:40 titer
[2017-01-02 12:15] LABS: EOSINOPHILS # 1.3 10^3/ul (0.0-0.5); LYMPHOCYTES # 0.6 10^3/ul (0.8-2.9); MONOCYTE # 1.1 10^3/ul (0.3-0.9); NEUTROPHIL # 17.1 10^3/ul (1.6-7.5)
[2017-01-02] MEDS ORDERED: FUROSEMIDE 20 MG INJ ONE (12:46)
[2017-01-02] MEDS ORDERED: FUROSEMIDE 20 MG INJ IV ONE (13:00)
--- NOTE | 2017-01-02 13:05 | QN ---
Documentation Comment Endotracheal Intubation by me: Pre assessment performed. Pre-oxygenation performed with 100% oxygen RSI: Performed w/o complication or hypoxic events. Medications as ordered. Blade: MAC 4 Glidescope ET Tube: 7.5 cm Depth: 23 cm at the lip Intubation confirmed by colorimetric CO2, equal breath sounds, quiet over the stomach. Chest x-ray pending GLENDY HONG MD Jan 02, 2017 13:05
[2017-01-02] MEDS ORDERED: NORepinephrine 8MG/250 ML (PMX 250 ML ONE (13:30)
[2017-01-02] MEDS ORDERED: DOPamine-D5W 1.6 MG/ML 250 ML ONE (13:47)
--- NOTE | 2017-01-02 13:58 | PN ---
Date/Time of Note Date/Time of Note DATE: 01/02/17 TIME: 13:52 Assessment/Plan VTE Prophylaxis VTE Prophylaxis Intervention: SCD's Lines/Catheters IV Catheter Type (from Nrs): Peripheral IV Urinary Cath still in place: Yes Reason Cath still needed: urinary retention Assessment/Plan Assessment/Plan 89 yo female with acute respiratory distress Vent Dependent Respiratory Failure - patient was emergently intubated, 20 mg IV lasix given 2/2 to hypotension possibility, with EKG showing new lateral t wave inversions, ECHO ordered, cardiac markers ordered, TSH/Mag ordered, Central line to be placed, patient was transferred to ICU for closer monitoring. All of the aforementioned was discussed with the primary care physician and ED physician this critical care note took greater than 50 min to complete Subjective 24 Hr Interval Summary Free Text/Dictation Rapid Response was called on this patient around 12:35 pm. The patient was in acute respiratory distress as per the nursing staff. Upon arrival to the floor, the patient was not responding to verbal commands, and waxing/waning mentation, with diaphoresis noted. Blood pressure were reading on the lower side. Otherwise no other acute events noted. Patient had been receiving IV fluids. Spoke to the nurse about the care plan. Exam/Review of Systems Vital Signs Vitals Vital Signs Date Time Temp Pulse Resp B/P Pulse Ox O2 Delivery O2 Flow Rate FiO2 01/02/17 13:30 59 01/02/17 08:00 Nasal Cannula 4.0 01/02/17 07:18 97.6 16 111/61 90 Intake and Output 01/01/17 01/01/17 01/02/17 15:00 23:00 07:00 Intake Total 100 ml 2050 ml Output Total 400 ml 400 ml Balance 100 ml -400 ml 1650 ml Exam Gen Andrzej: moderate respiratory distress, Alert to self HEENT: NC/AT, PERRLA, JVD present bilaterally NECK: supple, no thyromegaly THORAX: symmetrical, no obvious deformities CV: S1S2, RRR, II/ systolic murmur best heard over aortic area Lungs: bilateral rales/crackles, with diminished breath sounds to the bases Abd: soft, NT/ND, +BS, no rebound, no guarding, neg HSM, -gtube site c/d/i EXT: Anasarca , no ecchymosis, no clubbing, FROM Neuro: waxing/waning mentation Psych: cannot assess Skin: decreased turgor Results Result Diagram: 01/02/17 0750 01/02/17 0750 Results 24 hrs Laboratory Tests Test 01/02/17 07:50 01/02/17 12:36 Absolute Reticulocyte Count 0.076 Alanine Aminotransferase (ALT/SGPT) 21 Albumin 1.9 L Albumin/Globulin Ratio 0.52 Alkaline Phosphatase 94 Anion Gap 14 Aspartate Amino Transf (AST/SGOT) 40 Band Neutrophils % 7.0 H Basophils # Basophils % Blood Morphology Comment Blood Urea Nitrogen 56 H Calcium Level 9.5 Carbon Dioxide Level 19 L Chloride Level 111 H Creatinine 1.40 H Differential Comment MANUAL DIFF Direct Bilirubin 0.00 Eosinophils # 1.3 H Eosinophils % 6.0 Globulin 3.60 H Glucose Level 102 Hematocrit 28.0 L Hemoglobin 9.3 L Indirect Bilirubin 0.0 Lymphocytes # 0.6 L Lymphocytes % 3.0 L Mean Corpuscular Hemoglobin 28.2 L Mean Corpuscular Hemoglobin Concent 33.0 Mean Corpuscular Volume 85.3 Mean Platelet Volume 8.6 Monocytes # 1.1 H Monocytes % 5.0 Neutrophils # 17.1 H Neutrophils % 79.0 H Nucleated Red Blood Cells # Nucleated Red Blood Cells % 1.0 H Percent Reticulocyte Count 2.3 H Platelet Count 302 Potassium Level 5.5 H Red Blood Count 3.29 L Red Cell Distribution Width 27.1 H Sodium Level 138 Total Bilirubin 0.0 L Total Protein 5.5 L White Blood Count 21.6 H Bedside Glucose 133 Medications Medications Current Medications Allopurinol (Zyloprim) 300 mg DAILY PO Last administered on 01/02/17 08:33; Admin Dose 300 MG; Start 12/15/16 at 09:00 Ascorbic Acid (Vitamin C) 500 mg DAILY PO Last administered on 01/02/17 08:33; Admin Dose 500 MG; Start 12/15/16 at 09:00 Cholecalciferol (Vitamin D) 2,000 unit DAILY PO Last administered on 01/02/17 08:33; Admin Dose 2,000 UNIT; Start 12/15/16 at 09:00 Magnesium Hydroxide (Milk Of Mag) 30 ml Q24H PRN PO CONSTIPATION; Start at 16:30 Multivitamins Therapeutic (Theragran) 1 tab DAILY PO Last administered on 08:33; Admin Dose 1 TAB; Start 12/15/16 at 09:00 Sertraline HCl (Zoloft) 50 mg DAILY PO Last administered on 01/02/17 08:33; Admin Dose 50 MG; Start 12/15/16 at 09:00 Calcium Carbonate (Oyster Shell Calcium) 1.25 gm TID PO Last administered on 08:33; Admin Dose 1.25 GM; Start 12/14/16 at 17:00 Pantoprazole (Protonix Tab) 40 mg DAILY@06 PO Last administered on 01/02/17 06: 28; Admin Dose 40 MG; Start 12/15/16 at 06:00 Tramadol HCl (Ultram) 50 mg Q12H PRN PO PAIN LEVEL 6-10 Last administered on 10:17; Admin Dose 50 MG; Start 12/14/16 at 18:30 Acetaminophen (Tylenol Tab) 650 mg Q6H PRN PO PAIN AND OR ELEVATED TEMP; Start 12/14/16 at 18:30 Mupirocin (Bactroban) 1 applic BID TOP Last administered on 01/02/17 08:33; Admin Dose 1 APPLIC; Start 12/16/16 at 21:00 Verapamil HCl (Isoptin) 80 mg BID PO Last administered on 01/02/17 08:39; Admin Dose 80 MG; Start 12/17/16 at 15:00 Collagenase (Santyl) 1 applic DAILY TOP Last administered on 01/02/17 08:39; Admin Dose 1 APPLIC; Start 12/20/16 at 16:30 Vitamin A/Vitamin D (Vitamin A & D Oint) 1 applic BID PRN TOP NOTE Last administered on 12/30/16 16:07; Admin Dose 1 APPLIC; Start 12/24/16 at 14:30 Indomethacin (Indocin) 25 mg BID PO Last administered on 01/02/17 08:33; Admin Dose 25 MG; Start 12/30/16 at 21:00 Lorazepam (Ativan) 0.5 mg Q12 PRN IV ANXIETY Last administered on 12/30/16 22: 39; Admin Dose 0.5 MG; Start 12/30/16 at 21:00 Voriconazole 200 mg 200 mg BID PO Last administered on 01/02/17 08:33; Admin Dose 200 MG; Start 01/01/17 at 21:00 Dextrose 1,000 ml @ 75 mls/hr [id number] IV Last administered on 01/02/17t 06:28; Admin Dose 75 MLS/HR; Start 01/01/17 at 17:30 Albumin Human (Albumin Human 25%) 50 ml @ 100 mls/hr Q8H IV ; Start 01/02/17 at 14:00; Stop 01/03/17 at 06:29 NELLY ANDERSON MD Jan 02, 2017 13:58
[2017-01-02] MEDS ORDERED: INDOMETHACIN 25 MG PO SCH (14:00)
[2017-01-02] MEDS ORDERED: DOPamine-D5W 1.6 MG/ML 250 ML IV SCH (14:00)
[2017-01-02] MEDS ORDERED: NORepinephrine 8MG/250 ML (PMX 250 ML IV SCH (14:00)
--- NOTE | 2017-01-02 14:05 | PN ---
Date/Time of Note Date/Time of Note DATE: 01/02/17 TIME: 13:56 Assessment/Plan VTE Prophylaxis VTE Prophylaxis Intervention: SCD's Lines/Catheters IV Catheter Type (from Nrs): Peripheral IV Urinary Cath still in place: Yes Assessment/Plan Chief Complaint/Hosp Course Urosepsis Dehydration Prerenal azothemia HTN gouty arthritis CAD/ NH Mild cognitive Impairment Decubitus Stage I Problems: Subjective 24 Hr Interval Summary Free Text/Dictation Patient has labored breathing with abrupt desaturation. Patient was suctioned without improvement and BP dropped. Patient was intubated on Dopamine and Levo. IJ Line inserted will repeat Xray amd get a beside Echo. Heme workup in progress. Family notified. Patient remain full code. Multiple discussion with family strongly committed to full code. Px is guarded. Exam/Review of Systems Vital Signs Vitals Vital Signs Date Time Temp Pulse Resp B/P Pulse Ox O2 Delivery O2 Flow Rate FiO2 01/02/17 13:30 59 01/02/17 08:00 Nasal Cannula 4.0 01/02/17 07:18 97.6 16 111/61 90 Intake and Output 01/01/17 01/01/17 01/02/17 15:00 23:00 07:00 Intake Total 100 ml 2050 ml Output Total 400 ml 400 ml Balance 100 ml -400 ml 1650 ml Results Result Diagram: 01/02/17 0750 01/02/17 0750 Results 24 hrs Laboratory Tests Test 01/02/17 07:50 01/02/17 12:36 Absolute Reticulocyte Count 0.076 Alanine Aminotransferase (ALT/SGPT) 21 Albumin 1.9 L Albumin/Globulin Ratio 0.52 Alkaline Phosphatase 94 Anion Gap 14 Aspartate Amino Transf (AST/SGOT) 40 Band Neutrophils % 7.0 H Basophils # Basophils % Blood Morphology Comment Blood Urea Nitrogen 56 H Calcium Level 9.5 Carbon Dioxide Level 19 L Chloride Level 111 H Creatinine 1.40 H Differential Comment MANUAL DIFF Direct Bilirubin 0.00 Eosinophils # 1.3 H Eosinophils % 6.0 Globulin 3.60 H Glucose Level 102 Hematocrit 28.0 L Hemoglobin 9.3 L Indirect Bilirubin 0.0 Lymphocytes # 0.6 L Lymphocytes % 3.0 L Mean Corpuscular Hemoglobin 28.2 L Mean Corpuscular Hemoglobin Concent 33.0 Mean Corpuscular Volume 85.3 Mean Platelet Volume 8.6 Monocytes # 1.1 H Monocytes % 5.0 Neutrophils # 17.1 H Neutrophils % 79.0 H Nucleated Red Blood Cells # Nucleated Red Blood Cells % 1.0 H Percent Reticulocyte Count 2.3 H Platelet Count 302 Potassium Level 5.5 H Red Blood Count 3.29 L Red Cell Distribution Width 27.1 H Sodium Level 138 Total Bilirubin 0.0 L Total Protein 5.5 L White Blood Count 21.6 H Bedside Glucose 133 Medications Medications Current Medications Allopurinol (Zyloprim) 300 mg DAILY PO Last administered on 01/02/17 08:33; Admin Dose 300 MG; Start 12/15/16 at 09:00 Ascorbic Acid (Vitamin C) 500 mg DAILY PO Last administered on 01/02/17 08:33; Admin Dose 500 MG; Start 12/15/16 at 09:00 Cholecalciferol (Vitamin D) 2,000 unit DAILY PO Last administered on 01/02/17 08:33; Admin Dose 2,000 UNIT; Start 12/15/16 at 09:00 Magnesium Hydroxide (Milk Of Mag) 30 ml Q24H PRN PO CONSTIPATION; Start at 16:30 Multivitamins Therapeutic (Theragran) 1 tab DAILY PO Last administered on 08:33; Admin Dose 1 TAB; Start 12/15/16 at 09:00 Sertraline HCl (Zoloft) 50 mg DAILY PO Last administered on 01/02/17 08:33; Admin Dose 50 MG; Start 12/15/16 at 09:00 Calcium Carbonate (Oyster Shell Calcium) 1.25 gm TID PO Last administered on 08:33; Admin Dose 1.25 GM; Start 12/14/16 at 17:00 Pantoprazole (Protonix Tab) 40 mg DAILY@06 PO Last administered on 01/02/17 06: 28; Admin Dose 40 MG; Start 12/15/16 at 06:00 Tramadol HCl (Ultram) 50 mg Q12H PRN PO PAIN LEVEL 6-10 Last administered on 10:17; Admin Dose 50 MG; Start 12/14/16 at 18:30 Acetaminophen (Tylenol Tab) 650 mg Q6H PRN PO PAIN AND OR ELEVATED TEMP; Start 12/14/16 at 18:30 Mupirocin (Bactroban) 1 applic BID TOP Last administered on 01/02/17 08:33; Admin Dose 1 APPLIC; Start 12/16/16 at 21:00 Verapamil HCl (Isoptin) 80 mg BID PO Last administered on 01/02/17 08:39; Admin Dose 80 MG; Start 12/17/16 at 15:00 Collagenase (Santyl) 1 applic DAILY TOP Last administered on 01/02/17 08:39; Admin Dose 1 APPLIC; Start 12/20/16 at 16:30 Vitamin A/Vitamin D (Vitamin A & D Oint) 1 applic BID PRN TOP NOTE Last administered on 12/30/16 16:07; Admin Dose 1 APPLIC; Start 12/24/16 at 14:30 Indomethacin (Indocin) 25 mg BID PO Last administered on 01/02/17 08:33; Admin Dose 25 MG; Start 12/30/16 at 21:00 Lorazepam (Ativan) 0.5 mg Q12 PRN IV ANXIETY Last administered on 12/30/16 22: 39; Admin Dose 0.5 MG; Start 12/30/16 at 21:00 Voriconazole 200 mg 200 mg BID PO Last administered on 01/02/17 08:33; Admin Dose 200 MG; Start 01/01/17 at 21:00 Dextrose 1,000 ml @ 75 mls/hr [id number] IV Last administered on 01/02/17 06:28; Admin Dose 75 MLS/HR; Start 01/01/17 at 17:30 Albumin Human (Albumin Human 25%) 50 ml @ 100 mls/hr Q8H IV ; Start 01/02/17 at 14:00; Stop 01/03/17 at 06:29 JANNETTE LAZCANO MD Jan 02, 2017 14:05
--- NOTE | 2017-01-02 14:19 | QN ---
Documentation Comment Central Line Placement by me: Patient consented, sterilely draped, full prep, gown, glove, mask, time out performed. Anesthesia: 1% lidocaine locally Location: Right internal jugular Device: Multiple lumen Technique: Seldinger technique. Secured with suture. Results: Venous return from all ports with easy saline flush. No complications. Guide wire retrieved and disposed of. ED Ultrasound: Central line placed by me using concurrent ultrasound guidance. Real time image archived in the medical record confirms vascular anatomy. Chest x-ray pending GLENDY HONG MD Jan 02, 2017 14:19
[2017-01-02 14:45] LABS: AADO2 Arterial 579.1 mmHg (7.0-24.0); Arterial Base Excess -8.8 mmol/L (-3.0-3); Arterial COHb 0.3 % (0.0-3.0); Arterial Fraction of Oxyhgb 95.1 % (93.0-99.0); Arterial HCO3 18.2 mmol/L (22.0-26.0); Arterial MetHb 0.1 % (0.0-1.5); Arterial Total Hemglobin 9.8 g/dl (12.0-18.0); MODE VENT - AC
--- NOTE | 2017-01-02 14:47 | CONS ---
Date/Time of Note Date/Time of Note DATE: 01/02/17 TIME: 14:39 Assessment/Plan Assessment/Plan Additional Assessment/Plan Assessment and recommendations; 1. Patient admitted for urosepsis currently on adequate antibiotic coverage. With urine culture growing pseudomonas aeruginosa as well as sav. 2. Multiple other comorbidities as outlined above. 3. Significant bilateral pleural effusions possibly from CHF. Next Continue current ventilator settings. Obtain a chest x-ray. Patient may need to have bilateral sequential thoracentesis performed. Perform an ABG. Patient may require sedation. Prognosis is guarded. Consultation Date/Type/Reason Admit Date/Time Dec 14, 2016 at 14:52 Date of Consultation: Jan 02, 2017 Type of Consultation: Pulmonary/critical care Reason for Consultation Patient became hypoxemic on the medical floor rapid response was called and was intubated by ER physician transferred to ICU. History of presenting illness; 89-year-old lady admitted on of last month to [facility] for treatment of sepsis. The patient was being treated with broad-spectrum antibiotic coverage on the medical floor however a short while ago the patient decompensated became extremely hypoxemic unresponsive rapid response was called in however patient did not require any CPR but had to be intubated for respiratory failure. By the time I saw the patient the patient is in ICU, or intubated, unresponsive. History was obtained from medical records. Past medical history WI: Next 1. Recurrent UTI 2. Hypertension 3. Coronary artery disease 4. Dementia 5. Status post PEG tube placement 6. CHF 7. Pneumonia Medications; were reviewed. Family history; not available patient resides in a senior care. Next Occupational history; not available. Review of systems; currently unable to be obtained. General exam; elderly lady, or intubated unresponsive. Constitutional: no complaints Eyes: no complaints Musculoskeletal: bone/joint pain Skin: bruising, erythema, laceration, no complaints, other, pruritis, rash, skin lesions Psychological: No anxiety, No confusion, No depression, No nl mood/affect, No no complaints, No other, No suicidal Past Medical History Medical History: congestive heart failure, hypertension, urinary tract infection Past Surgical History Past Surgical Hx: other (hys) Social History Alcohol Use: none Smoking Status: Unknown if ever smoked Drug Use: none Exam/Review of Systems Vital Signs Vitals Vital Signs Date Time Temp Pulse Resp B/P Pulse Ox O2 Delivery O2 Flow Rate FiO2 01/02/17 13:30 59 01/02/17 08:00 Nasal Cannula 4.0 01/02/17 07:18 97.6 16 111/61 90 Intake and Output 01/01/17 01/01/17 01/02/17 15:00 23:00 07:00 Intake Total 100 ml 2050 ml Output Total 400 ml 400 ml Balance 100 ml -400 ml 1650 ml Exam H EENT examination; supple neck, no JVD. Or intubated. Patient has fair dentition. Bilateral intraocular lens implants are present. No thyromegaly. No neck masses. Chest examination; diminished breath on lung bases bilaterally. Upper lobes are clear. S1-S2 audible no murmurs regular rhythm. Abdomen soft mildly distended. PEG tube in place. Bowel sounds are absent. No organomegaly felt. Extremity examination; no peripheral edema. STOCK CONTROLLER examination; patient currently is unresponsive. Ventilator settings; assist control of 14, tidal volume 500, PEEP of 5, 100% FiO2. Chest x-ray from today is pending. CT abdomen was reviewed from few days ago which is showing significant bilateral pleural effusions. Results Result Diagram: 01/02/17 0750 01/02/17 0750 Results 24 hrs Laboratory Tests Test 01/02/17 07:50 01/02/17 12:36 Absolute Reticulocyte Count 0.076 Alanine Aminotransferase (ALT/SGPT) 21 Albumin 1.9 L Albumin/Globulin Ratio 0.52 Alkaline Phosphatase 94 Anion Gap 14 Aspartate Amino Transf (AST/SGOT) 40 Band Neutrophils % 7.0 H Basophils # Basophils % Blood Morphology Comment Blood Urea Nitrogen 56 H Calcium Level 9.5 Carbon Dioxide Level 19 L Chloride Level 111 H Creatinine 1.40 H Differential Comment MANUAL DIFF Direct Bilirubin 0.00 Eosinophils # 1.3 H Eosinophils % 6.0 Globulin 3.60 H Glucose Level 102 Hematocrit 28.0 L Hemoglobin 9.3 L Indirect Bilirubin 0.0 Lymphocytes # 0.6 L Lymphocytes % 3.0 L Mean Corpuscular Hemoglobin 28.2 L Mean Corpuscular Hemoglobin Concent 33.0 Mean Corpuscular Volume 85.3 Mean Platelet Volume 8.6 Monocytes # 1.1 H Monocytes % 5.0 Neutrophils # 17.1 H Neutrophils % 79.0 H Nucleated Red Blood Cells # Nucleated Red Blood Cells % 1.0 H Percent Reticulocyte Count 2.3 H Platelet Count 302 Potassium Level 5.5 H Red Blood Count 3.29 L Red Cell Distribution Width 27.1 H Sodium Level 138 Total Bilirubin 0.0 L Total Protein 5.5 L White Blood Count 21.6 H Bedside Glucose 133 Medications Medications Current Medications Allopurinol (Zyloprim) 300 mg DAILY PO Last administered on 01/02/17 08:33; Admin Dose 300 MG; Start 12/15/16 at 09:00 Ascorbic Acid (Vitamin C) 500 mg DAILY PO Last administered on 01/02/17 08:33; Admin Dose 500 MG; Start 12/15/16 at 09:00 Cholecalciferol (Vitamin D) 2,000 unit DAILY PO Last administered on 01/02/17 08:33; Admin Dose 2,000 UNIT; Start 12/15/16 at 09:00 Magnesium Hydroxide (Milk Of Mag) 30 ml Q24H PRN PO CONSTIPATION; Start at 16:30 Multivitamins Therapeutic (Theragran) 1 tab DAILY PO Last administered on 08:33; Admin Dose 1 TAB; Start 12/15/16 at 09:00 Sertraline HCl (Zoloft) 50 mg DAILY PO Last administered on 01/02/17 08:33; Admin Dose 50 MG; Start 12/15/16 at 09:00 Calcium Carbonate (Oyster Shell Calcium) 1.25 gm TID PO Last administered on 08:33; Admin Dose 1.25 GM; Start 12/14/16 at 17:00 Pantoprazole (Protonix Tab) 40 mg DAILY@06 PO Last administered on 01/02/17 06: 28; Admin Dose 40 MG; Start 12/15/16 at 06:00 Tramadol HCl (Ultram) 50 mg Q12H PRN PO PAIN LEVEL 6-10 Last administered on 10:17; Admin Dose 50 MG; Start 12/14/16 at 18:30 Acetaminophen (Tylenol Tab) 650 mg Q6H PRN PO PAIN AND OR ELEVATED TEMP; Start 12/14/16 at 18:30 Mupirocin (Bactroban) 1 applic BID TOP Last administered on 01/02/17 08:33; Admin Dose 1 APPLIC; Start 12/16/16 at 21:00 Verapamil HCl (Isoptin) 80 mg BID PO Last administered on 01/02/17 08:39; Admin Dose 80 MG; Start 12/17/16 at 15:00 Collagenase (Santyl) 1 applic DAILY TOP Last administered on 01/02/17 08:39; Admin Dose 1 APPLIC; Start 12/20/16 at 16:30 Vitamin A/Vitamin D (Vitamin A & D Oint) 1 applic BID PRN TOP NOTE Last administered on 12/30/16 16:07; Admin Dose 1 APPLIC; Start 12/24/16 at 14:30 Indomethacin (Indocin) 25 mg BID PO Last administered on 01/02/17 08:33; Admin Dose 25 MG; Start 12/30/16 at 21:00 Lorazepam (Ativan) 0.5 mg Q12 PRN IV ANXIETY Last administered on 12/30/16 22: 39; Admin Dose 0.5 MG; Start 12/30/16 at 21:00 Voriconazole 200 mg 200 mg BID PO Last administered on 01/02/17 08:33; Admin Dose 200 MG; Start 01/01/17 at 21:00 Albumin Human 50 ml @ 100 mls/hr Q8H IV ; Start 01/02/17 at 14:00; Stop at 06:29 Norepinephrine 250 ml @ 1.875 mls/ hr TITRATE IV ; Start 01/02/17 at 14:00 Dopamine HCl/ Dextrose 250 ml @ 6.188 mls/ hr Q24H IV ; Start 01/02/17 at 14:00 Doxycycline Hyclate/Sodium Chloride (Vibramycin/NS) 250 ml @ 250 mls/hr Q12 IVPB ; Start 01/02/17 at 14:00 Indomethacin 25 mg 25 mg DAILY PO ; Start 01/02/17 at 14:00 Meropenem 100 ml @ 200 mls/hr Q12 IVPB ; Start 01/02/17 at 14:00 Metronidazole (Flagyl 500 Mg (Pmx)) 100 ml @ 100 mls/hr Q8 IVPB ; Start at 14:00 MICHAELA COLEMAN Jan 02, 2017 14:47
[2017-01-02] MEDS: metroNIDAZOLE 500 MG/NS (PMX) 100 ML IVPB SCH ×2 (15:13→22:00)
[2017-01-02] MEDS: ALBUMIN HUMAN 25% 50 ML IV SCH ×2 (15:16→22:00)
[2017-01-02 15:35] LABS: CK-MB 3.87 ng/ml (0.0-2.4)
[2017-01-02 15:38] LABS: TROPONIN-I 0.039 ng/ml (0.00-0.12)
[2017-01-02 15:59] LABS: THYROID STIMULATING HORMONE 23.5 MIU/L (0.465-4.680)
--- NOTE | 2017-01-02 16:08 | RADRPT ---
PROCEDURE: XR Chest. CLINICAL INDICATION: Central line placement TECHNIQUE: Single frontal chest x-ray. COMPARISON: 12/30/2016 FINDINGS: There has been interval placement of a right IJ central venous catheter, with tip in the SVC. Endot eriberto tube has been placed, with tip in in the mid trachea proximally 2.5 cm above the norma. No pneumothorax is identified. Moderate, partially loculated right pleural effusion is seen, new when compared to the prior x-ray. Bilateral paracentral pulmonary opacities are again noted, grossly un changed. There is stable mild cardiomegaly. Aortic atherosclerotic calcification is noted. The os seous structures are remarkable for scoliosis and degenerative spondylosis of the spine. IMPRESSION: 1. Endotracheal tube and right IJ central venous catheter are in appropriate position. 2. Moderate, partially loculated right pleural fluid collection is identified, new when compared to the prior x-ray. 3. No pneumothorax is identified. 4. There is stable mild cardiomegaly and aortic atherosclerosis. 5. Bilateral paracentral pulmonary opacities are again noted, grossly unchanged. RPTAT: QQ .Moody Camacho MD, MD Date Time Electronically viewed and signed by .Moody Camacho MD, on 01/02/2017 16:07 .R/
--- NOTE | 2017-01-02 16:18 | PN ---
DATE: 01/02/2017 SUBJECTIVE : No acute changes. The patient is lethargic, lying comfortably in bed. She had an episode of emesis this morning. No fevers. White blood cell count today 21.6, platelets 302, neutrophils 79, bands 7, lymphs 15, monos 5. BUN 56, creatinine 1.4. MICROBIOLOGY: Blood cultures since December 30 negative. ANTIMICROBIALS: The patient is on: 1. IV doxycycline. 2. Meropenem. 3. Flagyl. 4. Voriconazole. DIAGNOSTICS: A CT of the abdomen and pelvis revealed extensive paracentral ground glass opacity and more confluent consolidation, suggestive of severe pulmonary edema with larger bilateral pleural effusions, mild cardiomegaly, small bilateral nonobstructive renal calculi. INDWELLINGS: Day, peripheral IV. PHYSICAL EXAMINATION: GENERAL: Chronically ill-appearing, elderly woman who is lying comfortably in bed. HEENT: Head atraumatic, normocephalic. Sclerae anicteric. Buccal mucosa dry. NECK: Supple, trachea midline. CHEST: Rise symmetrical. Breath sounds diminished to bases. HEART: S1, S2. ABDOMEN: Soft. Bowel tones present. EXTREMITIES: Without cyanosis. Bilateral trace edema. ASSESSMENT: 1. Systemic inflammatory response syndrome with persistent leukocytosis, possible MDS. 2. Status post coagulase-negative staph bacteremia. 3. Urinary tract infection. 4. Bilateral pleural effusions. 5. Dysphagia, status post percutaneous endoscopic gastrostomy. 6. Dementia. 7. Methicillin-resistant Staphylococcus aureus nares colonization. PLAN: The patient remains unchanged. She is being followed by multiple consultants. Pulmonary on case. May need sequential thoracentesis. Continue present care. Hematology rec-s Dictated By: BRADLEY PRATER [employer] COMM[employer]ICATIONS SPECIALIST for BAHMAN LEE MD NI/NTS Conf#: [id number] DID#: [id number]
[2017-01-02] MEDS: MEROPENEM 500 MG/100 ML (PMX) 100 ML IVPB SCH ×2 (16:20→21:10)
[2017-01-02] MEDS: DOXYCYCLINE 100 MG in SOD CHLORIDE 0.9% 250 ML IVPB SCH ×2 (16:21→21:13)
[2017-01-02 16:33] LABS: MAGNESIUM 1.5 mg/dl (1.7-2.5)
[2017-01-02 20:45] LABS: CK-MB 3.08 ng/ml (0.0-2.4)
[2017-01-02] MEDS ORDERED: DOBUTamine/D5W 1 MG/ML DRIP 250 ML ONE (20:45)
[2017-01-02 20:49] LABS: TROPONIN-I 0.039 ng/ml (0.00-0.12)
[2017-01-02 20:50] LABS: CREATINE KINASE < 20 IU/L (23-200)
[2017-01-02] MEDS ORDERED: DOBUTamine/D5W 1 MG/ML DRIP 250 ML IV SCH (21:00)
[2017-01-02 21:14] LABS: AADO2 Arterial 610.7 mmHg (7.0-24.0); Arterial Base Excess -15.8 mmol/L (-3.0-3); Arterial COHb 0.3 % (0.0-3.0); Arterial Fraction of Oxyhgb 83.2 % (93.0-99.0); Arterial HCO3 13.2 mmol/L (22.0-26.0); Arterial MetHb 0.2 % (0.0-1.5); Arterial Total Hemglobin 10.7 g/dl (12.0-18.0); MODE VENT - AC
[2017-01-02] MEDS ORDERED: PHENYLephrine 20MG IN 250 ML 250 ML ONE (21:26)
[2017-01-02] MEDS ORDERED: NA BICARBONATE 8.4% 50 ML SYG IV STA (21:28)
[2017-01-02] MEDS ORDERED: PHENYLephrine 40 MG in DEXTROSE 5% 496 ML IV SCH (21:30)
[2017-01-02] MEDS ORDERED: SODIUM BICARBONATE (IV ADD) 150 MEQ in DEXTROSE 5% 850 ML IV SCH (22:00)
--- NOTE | 2017-01-02 22:17 | PN ---
Date/Time of Note Date/Time of Note DATE: 01/02/17 TIME: 22:11 Assessment/Plan VTE Prophylaxis VTE Prophylaxis Intervention: other Lines/Catheters IV Catheter Type (from [facility]): Peripheral IV Urinary Cath still in place: Yes Assessment/Plan Chief Complaint/Hosp Course Urosepsis Dehydration Prerenal azothemia HTN gouty arthritis CAD/ OR Mild cognitive Impairment Decubitus Stage I Problems: Subjective 24 Hr Interval Summary Free Text/Dictation Called to see patient with profound hypotension on vent/ Peep 5 on 3 pressors. Patient remained in shock with BP of 45/30 Hr 80 . Norepi was added . Patient remained hypotensive. Hco3- given. Code was called and protocal followed and pt remined in EMD/VF with 5 epi, Ca, Mg, and external 200j . Patient was pronounced . Son at bed side. Exam/Review of Systems Vital Signs Vitals Vital Signs Date Time Temp Pulse Resp B/P Pulse Ox O2 Delivery O2 Flow Rate FiO2 01/02/17 20:00 79 01/02/17 18:17 16 92 100 01/02/17 18:16 78/44 01/02/17 18:00 Nasal Cannula 01/02/17 13:45 97.6 01/02/17 08:00 4.0 Intake and Output 01/01/17 01/01/17 01/02/17 15:00 23:00 07:00 Intake Total 100 ml 2050 ml Output Total 400 ml 400 ml Balance 100 ml -400 ml 1650 ml Results Result Diagram: 01/02/17 0750 01/02/17 0750 Results 24 hrs Laboratory Tests Test 01/02/17 07:50 01/02/17 12:36 01/02/17 14:15 01/02/17 14:17 Absolute Reticulocyte Count 0.076 Alanine Aminotransferase (ALT/SGPT) 21 Albumin 1.9 L Albumin/Globulin Ratio 0.52 Alkaline Phosphatase 94 Anion Gap 14 Aspartate Amino Transf (AST/SGOT) 40 Band Neutrophils % 7.0 H Basophils # Basophils % Blood Morphology Comment Blood Urea Nitrogen 56 H Calcium Level 9.5 Carbon Dioxide Level 19 L Chloride Level 111 H Creatinine 1.40 H Differential Comment MANUAL DIFF Direct Bilirubin 0.00 Eosinophils # 1.3 H Eosinophils % 6.0 Globulin 3.60 H Glucose Level 102 Hematocrit 28.0 L Hemoglobin 9.3 L Indirect Bilirubin 0.0 Lymphocytes # 0.6 L Lymphocytes % 3.0 L Mean Corpuscular Hemoglobin 28.2 L Mean Corpuscular Hemoglobin Concent 33.0 Mean Corpuscular Volume 85.3 Mean Platelet Volume 8.6 Monocytes # 1.1 H Monocytes % 5.0 Neutrophils # 17.1 H Neutrophils % 79.0 H Nucleated Red Blood Cells # Nucleated Red Blood Cells % 1.0 H Percent Reticulocyte Count 2.3 H Platelet Count 302 Potassium Level 5.5 H Red Blood Count 3.29 L Red Cell Distribution Width 27.1 H Sodium Level 138 Total Bilirubin 0.0 L Total Protein 5.5 L White Blood Count 21.6 H Bedside Glucose 133 Creatine Kinase 22 L Creatine Kinase Index 17.6 Creatinine Kinase MB (Mass) 3.87 H Magnesium Level 1.5 L Thyroid Stimulating Hormone (TSH) 23.500 H Troponin I 0.039 Arterial Blood HCO3 18.2 L Arterial Blood Base Excess -8.8 L Arterial Blood Oxygen Saturation 95.5 Matthew Test N/A Arterial Blood Gas Puncture Site LB Arterial Blood Carboxyhemoglobin 0.3 Arterial Blood Date Drawn 01/02/2017 2:21:53 PM Arterial Blood Methemoglobin 0.1 Arterial Blood pCO2 (Temp correct) 44.3 Arterial Blood pH (Temp corrected) 7.232 *L Arterial Blood pO2 (Temp corrected) 89.6 Blood Gas A-a O2 Differential 579.1 H Blood Gas Actual Respiration Rate 16 Blood Gas Critical Value Read Back A YNES KUMARI Blood Gas Low PEEP Setting 5.0 Blood Gas Modality VENT - AC Blood Gas Notified Time 01/02/2017 2:45:29 PM Blood Gas Notified Whom JLD Blood Gas Respiration Rate 16.0 Blood Gas Specimen Source Blood arterial Blood Gas Temperature 37.0 Blood Gas Tidal Volume 500.0 FiO2 100.0 Oxyhemoglobin Percent 95.1 Total Hemoglobin 9.8 L Test 01/02/17 19:44 01/02/17 21:00 Creatine Kinase < 20 L Creatine Kinase Index Creatinine Kinase MB (Mass) 3.08 H Troponin I 0.039 Arterial Blood HCO3 13.2 L Arterial Blood Base Excess -15.8 L Arterial Blood Oxygen Saturation 83.6 L Matthew Test N/A Arterial Blood Gas Puncture Site LB Arterial Blood Carboxyhemoglobin 0.3 Arterial Blood Date Drawn 01/02/2017 9:00:07 PM Arterial Blood Methemoglobin 0.2 Arterial Blood pCO2 (Temp correct) 44.0 Arterial Blood pH (Temp corrected) 7.095 *L Arterial Blood pO2 (Temp corrected) 58.3 L Blood Gas A-a O2 Differential 610.7 H Blood Gas Actual Respiration Rate 17 Blood Gas Critical Value Read Back DCRUZ RN Blood Gas Low PEEP Setting 5.0 Blood Gas Modality VENT - AC Blood Gas Notified Time 01/02/2017 9:14:12 PM Blood Gas Notified Whom MA Blood Gas Respiration Rate 16.0 Blood Gas Specimen Source Blood arterial Blood Gas Temperature 37.0 Blood Gas Tidal Volume 500.0 FiO2 100.0 Oxyhemoglobin Percent 83.2 L Total Hemoglobin 10.7 L Medications Medications Current Medications Allopurinol (Zyloprim) 300 mg DAILY PO Last administered on 01/02/17 08:33; Admin Dose 300 MG; Start 12/15/16 at 09:00 Ascorbic Acid (Vitamin C) 500 mg DAILY PO Last administered on 01/02/17 08:33; Admin Dose 500 MG; Start 12/15/16 at 09:00 Cholecalciferol (Vitamin D) 2,000 unit DAILY PO Last administered on 01/02/17 08:33; Admin Dose 2,000 UNIT; Start 12/15/16 at 09:00 Magnesium Hydroxide (Milk Of Mag) 30 ml Q24H PRN PO CONSTIPATION; Start at 16:30 Multivitamins Therapeutic (Theragran) 1 tab DAILY PO Last administered on 08:33; Admin Dose 1 TAB; Start 12/15/16 at 09:00 Sertraline HCl (Zoloft) 50 mg DAILY PO Last administered on 01/02/17 08:33; Admin Dose 50 MG; Start 12/15/16 at 09:00 Calcium Carbonate (Oyster Shell Calcium) 1.25 gm TID PO Last administered on 08:33; Admin Dose 1.25 GM; Start 12/14/16 at 17:00 Pantoprazole (Protonix Tab) 40 mg DAILY@06 PO Last administered on 01/02/17 06: 28; Admin Dose 40 MG; Start 12/15/16 at 06:00 Tramadol HCl (Ultram) 50 mg Q12H PRN PO PAIN LEVEL 6-10 Last administered on 10:17; Admin Dose 50 MG; Start 12/14/16 at 18:30 Acetaminophen (Tylenol Tab) 650 mg Q6H PRN PO PAIN AND OR ELEVATED TEMP; Start 12/14/16 at 18:30 Mupirocin (Bactroban) 1 applic BID TOP Last administered on 01/02/17 08:33; Admin Dose 1 APPLIC; Start 12/16/16 at 21:00 Verapamil HCl (Isoptin) 80 mg BID PO Last administered on 01/02/17 08:39; Admin Dose 80 MG; Start 12/17/16 at 15:00 Collagenase (Santyl) 1 applic DAILY TOP Last administered on 01/02/17 08:39; Admin Dose 1 APPLIC; Start 12/20/16 at 16:30 Vitamin A/Vitamin D (Vitamin A & D Oint) 1 applic BID PRN TOP NOTE Last administered on 12/30/16 16:07; Admin Dose 1 APPLIC; Start 12/24/16 at 14:30 Indomethacin (Indocin) 25 mg BID PO Last administered on 01/02/17 08:33; Admin Dose 25 MG; Start 12/30/16 at 21:00 Lorazepam (Ativan) 0.5 mg Q12 PRN IV ANXIETY Last administered on 12/30/16 22: 39; Admin Dose 0.5 MG; Start 12/30/16 at 21:00 Voriconazole 200 mg 200 mg BID PO Last administered on 01/02/17 08:33; Admin Dose 200 MG; Start 01/01/17 at 21:00 Albumin Human 50 ml @ 100 mls/hr Q8H IV Last administered on 01/02/17 15:16; Admin Dose 100 MLS/HR; Start 01/02/17 at 14:00; Stop 01/03/17 at 06:29 Norepinephrine 250 ml @ 1.875 mls/ hr TITRATE IV Last administered on 15:19; Admin Dose 9.375 MLS/HR; Start 01/02/17 at 14:00 Dopamine HCl/ Dextrose 250 ml @ 6.188 mls/ hr Q24H IV Last administered on 01/02 15:17; Admin Dose 6.188 MLS/HR; Start 01/02/17 at 14:00 Doxycycline Hyclate/Sodium Chloride (Vibramycin/NS) 250 ml @ 250 mls/hr Q12 IVPB Last administered on 01/02/17 21:13; Admin Dose 250 MLS/HR; Start 01/02/17 at 14:00 Indomethacin 25 mg 25 mg DAILY PO ; Start 01/02/17 at 14:00 Meropenem 100 ml @ 200 mls/hr Q12 IVPB Last administered on 01/02/17 21:10; Admin Dose 200 MLS/HR; Start 01/02/17 at 14:00 Metronidazole 100 ml @ 100 mls/hr Q8 IVPB Last administered on 01/02/17 15:13 ; Admin Dose 100 MLS/HR; Start 01/02/17 at 14:00 Dobutamine HCl/ Dextrose 250 ml @ 8.25 mls/hr TITRATE IV Last administered on 01/02/17 21:02; Admin Dose 16.5 MLS/HR; Start 01/02/17 at 21:00 Phenylephrine HCl 40 mg/Dextrose 500 ml @ 75 mls/hr TITRATE IV ; Start 01/02/17 at 21:30 Sodium Bicarbonate/ Dextrose (Na Bicarb/D5W) 1,000 ml @ 100 mls/hr Q10H IV ; Start 01/02/17 at 22:00 JANNETTE LAZCANO MD Jan 02, 2017 22:17
--- NOTE | 2017-01-03 17:17 | RADRPT ---
Vent Rate: 63 bpm RR Interval: 0 msec AL Interval: 318 msec QRS Duration: 86 msec QT Interval: 456 msec QTC Interval: 466 msec P-R-T Lawtey: 58 - 49 - 171 degrees Sinus rhythm with 1st degree AV block Nonspecific T wave abnormality Prolonged QT Abnormal ECG Electronically Signed By: Tutu Samano [id number]
--- NOTE | 2017-01-06 14:12 | RADRPT ---
Echocardiogram Report Patient Name: ANGEL MATUTE Gender: Female Date: 1925 Study Date: 02-Jan-2017 Director Of Curriculum And Instruction: Jose De Jesus Rob RDCS Location: 119 Ref. Physician: NELLY ANDERSON Quality: Technically Difficult Study Procedures: Transthoracic echocardiogram with complete 2D, M-Mode, and doppler examination. Indications: Congestive Heart Failure. 2D/M Mode Doppler Measurement Value Normal Ranges Measurement Value Normal Ranges LVIDd 2D 4.3 3.5 - 5.6 cm MER Vmax 0.7 cm2 LVIDs 2D 1.8 2.1 - 4.1 cm MER VTI 0.7 cm2 LVPWd 2D 0.9 0.6 - 1.1 cm AV Mean Homero 1.4 m/sec IVSd 2D 0.8 0.6 - 1.1 cm AV Mean PG 9.8 mmHg AoR Diam 2D 2.4 2.0 - 3.7 cm AV Peak Homero 2.3 m/sec EDV 2D 80.8 cm3 AV Peak PG 21.3 mmHg ESV 2D 5.8 cm3 AV VTI 58.3 cm LA Dimen 2D 2.9 2.3 - 4.0 cm LVOT Mean Homero 0.3 m/sec LVOT Diam 2.0 cm LVOT Mean PG 0.5 mmHg LVOT Peak Homero 0.5 m/sec LVOT Peak PG 1.2 mmHg LVOT VTI 15.9 cm MV E Peak Homero 0.7 m/sec MV A Peak Homero 0.8 m/sec MV E/A 0.9 MV Decel Time 184 msec MV Decel Dauphin 4 MV E/A 0.9 TR Peak Homero 2.7 m/sec TR Peak PG 30.1 mmHg RVSP 38.0 mmHg Findings Left Ventricle: Normal left ventricular systolic function. Normal left ventricular cavity size. Normal left ventricular wall thickness. Ejection fraction is visually estimated at 65 %. Tissue Doppler/Mitral Doppler indices are consistent with impaired relaxation (Stage I diastolic dysfunction). Right Ventricle: Normal right ventricular size. Normal right ventricular systolic function. Left Atrium: The left atrium is normal in size. Right Atrium: The right atrium is normal in size. Mitral Valve: Mitral valve leaflets appear mildly thickened. Mild mitral annular calcification. Mild mitral valve regurgitation. Aortic Valve: Moderate to severe aortic stenosis. Aortic valve Max velocity 2.31 m/sec. Max PG 21.30 mmHg. Mean PG 9.80 mmHg. Aortic valve area 0.80 cm2. Aortic cusps appear moderately calcified. Mild aortic valve regurgitation. Tricuspid Valve: Normal appearance of the tricuspid valve. Estimated peak PA systolic pressure 38 mmHg. There is mild tricuspid regurgitation. Pulmonic Valve: Pulmonic valve not well visualized. Pericardium: Small pericardial effusion. Aorta: Normal aortic root. IVC: Inferior vena cava without respiratory collapse, however, patient on ventilator. Conclusions 1.Normal left ventricular systolic function. Normal left ventricular cavity size. Normal left ventricular wall thickness. Ejection fraction is visually estimated at 65 %. Tissue Doppler/Mitral Doppler indices are consistent with impaired relaxation (Stage I diastolic dysfunction). 2.Normal right ventricular size. Normal right ventricular systolic function. 3.The left atrium is normal in size. 4.The right atrium is normal in size. 5.Mitral valve leaflets appear mildly thickened. Mild mitral annular calcification. Mild mitral valve regurgitation. 6.Moderate to severe aortic stenosis. Aortic valve Max velocity 2.31 m/sec. Max PG 21.30 mmHg. Mean PG 9.80 mmHg. Aortic valve area 0.80 cm2. Aortic cusps appear moderately calcified. Mild aortic valve regurgitation. Electronically Signed By: Ken Coley 06-Jan-2017 14:11:21 -0800 Patient Name: ANGEL MATUTE Study Date: 02-Jan-2017 [id number]
--- NOTE | 2017-01-27 14:07 | DES ---
Date/Time of Note Date/Time of Note DATE: 01/27/17 TIME: 14:02 Discharge/ Summary Admission/Discharge Info Admit Date/Time Dec 14, 2016 at 14:52 Discharge Date/Time Jan 02, 2017 at 22:07 Final Diagnosis Myocardial Infarction Sepsis Aspiration Pneumonia Urospesis Anemia Kidney failure Decubitus Preliminary Cause of Myocardial Infarction patient was pronounced at 22:11PM Hx of Present Illness 89 year old female with history of gout, HTN, OA, contracture Stage I Decubitus , Mild cognitive impairment found to have severe anemia from prob. MDS, and urosepis with dehydration Hospital Course SUBJECTIVE: No acute changes. The patient is lying comfortably in bed. No fevers. Tolerates TF ANTIMICROBIALS: The patient is on: 1. Merrem 3. IV Vanco. 4. Diflucan PHYSICAL EXAMINATION: GENERAL: This is a fragile, elderly woman who is lying comfortably in bed. HEENT: Head atraumatic, normocephalic. Sclerae anicteric. Buccal mucosa dry. NECK: Supple. CHEST: Rise symmetrical. Breath sounds diminished to bases. HEART: S1, S2. ABDOMEN: Soft, bowel tones present. EXTREMITIES: Without cyanosis. ASSESSMENT: 1. Sepsis. 2. Urinary tract infection==> yeast. 3. Acute on chronic kidney disease. 4. Perianal excoriation and multiple decubs. 5. Status post coagulase-negative staph bacteremia. 6. Healthcare-associated pneumonia/aspiration. 7. Dysphagia, s/p PEG. 8. Methicillin-resistant Staphylococcus aureus nares colonization==> on Bactroban to nares. 9. Gouty arthritis. 10.B hydronephrosis PLAN: The patient remains clinically unchanged, will complete abx for couple more days, continue Diflucan, f/u hematology rec-s, consider CT abdomen [facility] staff JANNETTE LAZCANO MD Jan 27, 2017 14:07
== END 2017-01-02 22:07 | disposition expired | DRG 871 ==
LOC: E/R 09:35 → TEL 14:52 → MS2 12-28 13:00 → ICU 01-02 13:10
PROVIDERS: ADMIT Specialist; ATTEND Specialist
PROC: 30233N1 Transfusion of Nonautologous Red Blood Cells into Peripheral Vein, Percutaneous Approach (ICD-10-PCS; 2016-12-14)
PROC: 0DH63UZ Insertion of Feeding Device into Stomach, Percutaneous Approach (ICD-10-PCS; principal; 2016-12-26 15:00)
PROC: 5A1935Z Respiratory Ventilation, Less than 24 Consecutive Hours (ICD-10-PCS; 2017-01-02)
PROC: 0BH17EZ Insertion of Endotracheal Airway into Trachea, Via Natural or Artificial Opening (ICD-10-PCS; 2017-01-02)
PROC: 02HV33Z Insertion of Infusion Device into Superior Vena Cava, Percutaneous Approach (ICD-10-PCS; 2017-01-02)
DX: A41.9 Sepsis, unspecified organism (principal); J69.0 Pneumonitis due to inhalation of food and vomit; I21.3 ST elevation (STEMI) myocardial infarction of unspecified site; N17.9 Acute kidney failure, unspecified; L89.212 Pressure ulcer of right hip, stage 2; L89.153 Pressure ulcer of sacral region, stage 3; L89.222 Pressure ulcer of left hip, stage 2; R13.10 Dysphagia, unspecified; I13.0 Hypertensive heart and chronic kidney disease with heart failure and stage 1 through stage 4 chronic kidney disease, or unspecified chronic kidney disease; L89.522 Pressure ulcer of left ankle, stage 2; E46 Unspecified protein-calorie malnutrition; N39.0 Urinary tract infection, site not specified; L89.154 Pressure ulcer of sacral region, stage 4; G30.9 Alzheimer's disease, unspecified; D46.9 Myelodysplastic syndrome, unspecified; F02.80 Dementia in other diseases classified elsewhere, unspecified severity, without behavioral disturbance, psychotic disturbance, mood disturbance, and anxiety; M10.9 Gout, unspecified; E86.0 Dehydration; I25.10 Atherosclerotic heart disease of native coronary artery without angina pectoris; B96.5 Pseudomonas (aeruginosa) (mallei) (pseudomallei) as the cause of diseases classified elsewhere; I70.0 Atherosclerosis of aorta; Y95 Nosocomial condition; N18.9 Chronic kidney disease, unspecified; I50.9 Heart failure, unspecified; R62.7 Adult failure to thrive; Z68.20 Body mass index [BMI] 20.0-20.9, adult; I25.2 Old myocardial infarction
CPT/HCPCS: 31500; 36415; 36430; 36600; 71010; 71250; 74176; 75984; 76700; 80048; 80053; 80202; 81001; 81003; 81270; 82270; 82550; 82553; 82565; 82607; 82728; 82746; 82803; 82962; 83010; 83540; 83605; 83615; 83735; 83880; 84145; 84443; 84484; 84520; 84560; 85025; 85045; 85610; 85730; 86038; 86430; 86850; 86900; 86901; 86920; 87040; 87075; 87081; 87086; 90686; 92526; 92610; 92950; 93005; 93306; 94002; 96374; 97161; J1940; J0171; J0690; J0696; J1250; J1265; J1956; J2060; J2185; J2370; J3370; J3475; J3480; J7030; J7040; J7042; J7050; J7070; P9016; P9047; Q9967